=== PATIENT | male | born 1935 | race Caucasian/White ===

== ENCOUNTER 2018-02-08 11:25 | Outpatient (RCR) | payer SELFPAY ==
--- NOTE | 2018-01-16 09:00 | PR3E_ITS ---
82 year old male, graduate of pulmonary rehab phase 2 in 2017 and joined Phase 3 for a short period and has now decided to return. He was referred by his primary providers at [facility]. 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 Program structure reviewed and consents were obtained. Physical Assessment: Alert and oriented male, steady gait. Height 68in, weight 193 lbs, BMI 29.3. Lungs clear to air bilaterally, wearing 2L oxygen via NC, color WNL for patient, no edema reported, heart sounds distant and regular. Resting Vital signs: BP 110/52, HR 69, Oxygen saturation 91% on 2L. Exercise: No adverse signs or symptoms reported or observed w/ exercise. Tolerated the Treadmill (7 minutes), UBE (13 minutes), and stationary bike (5 minutes). HR w/ exercise 60's, BP w/ exercise 105/53 & 107/59, Oxygen saturations 84-90% and titrated from 2-4L, pt reports baseline with activity is low 80's and at rest low 90's, garrett scale ratings appropriate at 12-14. Will continue to monitor and progress patient as tolerated.
== END 2018-02-09 23:59 | disposition home or self-care (01) ==
LOC: CR 11:25
PROVIDERS: PCP Student in an Organized Health Care Education/Training Program; Visit Provider Family Medicine
DX: Z51.89 Encounter for other specified aftercare (principal)

== ENCOUNTER 2018-03-08 09:00 | Outpatient (RCR) | payer SELFPAY | END 2018-03-11 23:59 | disposition home or self-care (01) | LOC: CR 09:00 | PROVIDERS: PCP Student in an Organized Health Care Education/Training Program; Visit Provider Family Medicine | DX: Z51.89 Encounter for other specified aftercare (principal) ==

== ENCOUNTER 2018-04-05 09:00 | Outpatient (RCR) | payer SELFPAY | END 2018-04-11 23:59 | disposition home or self-care (01) | LOC: CR 09:00 | PROVIDERS: PCP Student in an Organized Health Care Education/Training Program; Visit Provider Family Medicine | DX: Z51.89 Encounter for other specified aftercare (principal) ==

== ENCOUNTER 2018-04-11 07:15 | Outpatient (CLI) | payer MEDICARE, OTHER, SELFPAY ==
[2018-04-11 07:53] LABS: HCT 48.3 % (40.0-50.0); HGB 15.8 g/dL (13.5-17.5); Mean Corp. HGB Concentration 32.7 g/dL (32.0-36.0); Mean Corpuscular Hemoglobin 31.1 pg (27.0-33.0); Mean Corpuscular Volume 95.1 fL (80-95); Mean Platelet Volume 10.8 fL (8.0-11.0); Platelet Count 131 x1000/uL (130-400); RBC 5.08 m/cumm (4.50-6.00); RBC Distribution Width 15.4 % (11.8-14.1); White Blood Cell Count 7.55 k/cumm (4.4-10.8)
[2018-04-11 10:10] LABS: ALT 19 U/L (12-78); AST 16 U/L (15-37); Albumin 3.6 g/dL (3.4-5.0); Alkaline Phosphatase 85 U/L (46-116); Anion Gap 13.2 mmol/L (3-11); BUN 19 mg/dL (7-18); Bilirubin, Total 0.7 mg/dL (0.2-1.0); CO2 23.8 mmol/L (21.0-32.0); CREATININE 1.07 mg/dL (0.70-1.30); Calcium 9.1 mg/dL (8.5-10.1); Chloride 106 mmol/L (98-107); Cholesterol 131 mg/dL (50-200); Glucose 99 mg/dL (70-100); HDL Cholesterol 36 mg/dL (40-60); LDL CHOLESTEROL 77 mg/dL (<100); Sodium 143 mmol/L (136-145); Total Protein 7.1 g/dL (6.4-8.2); Triglyceride 118 mg/dL (30-150)
== END 2018-04-11 07:35 ==
PROVIDERS: PCP Student in an Organized Health Care Education/Training Program; Visit Provider Student in an Organized Health Care Education/Training Program
DX: K76.0 Fatty (change of) liver, not elsewhere classified (principal); N28.9 Disorder of kidney and ureter, unspecified; D64.9 Anemia, unspecified; I10 Essential (primary) hypertension; E78.5 Hyperlipidemia, unspecified
CPT/HCPCS: 36415; 80053; 80061; 83721; 85027; 84443

== ENCOUNTER 2018-04-19 09:00 | Outpatient (RCR) | payer SELFPAY | END 2018-05-11 23:59 | disposition home or self-care (01) | LOC: CR 09:00 | PROVIDERS: PCP Student in an Organized Health Care Education/Training Program; Visit Provider Family Medicine | DX: Z51.89 Encounter for other specified aftercare (principal) ==

== ENCOUNTER 2018-05-02 00:49 | Outpatient (CLI) | payer MEDICARE, OTHER, SELFPAY ==
--- NOTE | 2018-05-02 14:40 | DI.CT_ITS ---
SYMPTOMS/DIAGNOSIS: ILD, J84.[address]: CT examination of the chest was performed utilizing high resolution protocol with inspiratory and expiratory imaging as well as helical scanning. Images obtained through the upper abdomen show gas in the intra and extrahepatic biliary tract consistent with prior instrumentation. The liver, spleen and pancreas are grossly unremarkable as are adrenals and visualized portions of the kidneys. There are multiple prominent mediastinal lymph nodes, the largest a pretracheal lymph node measuring about 30 x 12 mm in diameter. No axillary or supraclavicular adenopathy seen. The cardiac size appears within normal limits. There is a transvenous cardiac pacemaker in position. There are severe pulmonary emphysematous changes with very prominent central lobular and subpleural emphysema most prominent in the lung apices. There is predominantly bibasilar fibrosis and some honeycombing is present in the lung bases. No pulmonary mass or consolidation seen. There is a left basilar lower lobe intrapulmonary nodule measuring 8 mm in greatest diameter. This appears unchanged in comparison with previous abdominal CT of 08/22/17. Expiratory imaging shows no significant focal air trapping. CONCLUSION: Findings consistent with severe central lobular and subpleural emphysema, predominantly basilar reticular and honeycombing radiodensities consistent with pulmonary fibrosis. Left lower lobe 8 mm intrapulmonary nodule noted, follow up chest CT recommended in 12 months per low dose screening protocol.
== END 2018-05-02 01:09 ==
PROVIDERS: PCP Student in an Organized Health Care Education/Training Program; Visit Provider Internal Medicine Pulmonary Disease
DX: J84.9 Interstitial pulmonary disease, unspecified (principal); R91.1 Solitary pulmonary nodule; J43.9 Emphysema, unspecified; J84.10 Pulmonary fibrosis, unspecified
CPT/HCPCS: 71250

== ENCOUNTER 2018-05-28 07:44 | Emergency (ER) | payer MEDICARE, OTHER, SELFPAY ==
[2018-05-28] VITALS (54 sets, daily range): BP systolic 90–118; BP diastolic 50–76; PULSE 64–120; RESP 4–33; TEMP 36.6; O2SAT 74–94
--- NOTE | 2018-05-28 07:56 | ED.GENADUL_ITS ---
Discharge Plan Disposition Patient Disposition: HOME Condition: Stable Discharge Details Chief Complaint: SOB Clinical Impression: Hypoxia, Shortness of breath Primary Care Provider: Rianna Padron ED Provider: Ilda Gomes Home Meds and New Rx's Prescriptions: Continued rosuvastatin [Crestor] 20 mg tablet 20 mg PO DAILY Qty: 90 RF: 3 clopidogrel [Plavix] 75 mg tablet 75 mg PO DAILY Qty: 90 RF: 3 allopurinol 300 mg tablet 150 mg PO DAILY Qty: 45 RF: 0 carvedilol [Coreg] 12.5 mg tablet 12.5 mg PO BID Qty: 180 RF: 3 losartan 50 mg tablet 50 mg PO DAILY Qty: 90 RF: 3 fluticasone [Allergy Relief (fluticasone)] 50 mcg/actuation spray,suspension 2 spray JERRY DAILY Qty: 19.8 RF: 0 Space Chamber Plus 1 EACH spacer 1 ea Miscellaneous PRN Qty: 1 RF: 0 Comp-Air Elite Comp Neb System 1 EACH device 1 ea Miscellaneous Q6H PRN Qty: 1 RF: 0 potassium chloride [Klor-Con M20] 20 MEQ tablet,ER particles/crystals 20 meq PO DAILY Qty: 90 RF: 3 ursodiol 250 MG tablet 250 mg PO BID Qty: 180 RF: 3 aspirin 81 MG tablet,delayed release (DR/EC) 81 mg PO DAILY RF: 0 omega-3 fatty acids-fish oil 1 EACH capsule 1 ea PO BID RF: 0 Oxygen EACH NS continuous Qty: 2 RF: 99 sildenafil [Viagra] 50 MG tablet 50 mg PO DAILY Qty: 10 RF: 0 vit E-wheat germ-aloe vera 120 GM ointment 120 gm Topical BID Qty: 1 RF: 0 furosemide 40 MG tablet 40 mg PO Q48H Qty: 45 RF: 3 diltiazem HCl 180 MG capsule,extended release 24hr 180 mg PO DAILY Qty: 90 RF: 3 acetaminophen [Tylenol] 325 MG tablet 650 mg PO PRN PRNRF: 0 No Action fluticasone 220 mcg/actuation HFA aerosol inhaler 1 puff IH Q12H Qty: 12 RF: 0 morphine 10 mg/5 mL solution 10 mg PO Q6H MDD 2.5 mg PRN (Reason: sob) Qty: 15 RF: 0 prednisone 10 mg tablet 20 mg PO DAILY MDD 40mg Qty: 100 RF: 3 Discharge Instructions Instructions: Dyspnea (ED) Additional Instructions: Please return immediately to the emergency department if you develop any new or worsening symptoms or if you become otherwise concerned. You are offered admission today for shortness of breath declined admission, you may return to the emergency department at any time if you change your mind. It is extremely important that you call your licensed practical vocational nurse today to schedule an appointment to be seen within the next 2-3 days in follow-up. It is also extremely important that you call your primary care doctor to schedule an appointment to be seen within the next 1-2 weeks in follow-up this visit. Referrals: Rianna Padron, [Primary Care Provider] - Discharge Data Discharge Date/Time-TO BE ENTERED AT DEPARTURE: 05/28/18 14:21 Medical Decision Making Kayla Edmond is an 83-year-old man with history of hypertension, hyperlipidem ia, COPD/interstitial lung disease, coronary artery disease, AAA presenting to the emergency department with increased cough and shortness of breath over the past few days. On exam patient is conversing normally and speaking in full sentences, appears nontoxic. Mild shortness of breath. Decreased lung sounds throughout. Patient hypoxic on 3 L nasal cannula to high 80s at rest. Patient placed on nonrebreather with O2 sats into the mid 90s. Patient requests return to nasal cannula, does not like wearing nonrebreather and does not feel improved with it on. Concern for worsening chronic interstitial lung disease, reactive airway disease, pneumonia, PE, other. Doubt CHF, ACS. Exam/history not consistent with acute aortic pathology, sepsis. Plan for EKG, chest x-ray, screening labs, DuoNeb, continue nasal cannula oxygen, telemetry. Will monitor and reassess. CXR shows possible PNA, d-dimer elevated. Plan for CT chest. CT chest shows no acute process. Pt reporting essentially no change after duoneb. He reports that he feels at baseline while at rest. Ambulatory POX shows sats low 80s while walking. Pt ambulates without trouble. Discussed Pt presentation, results with Dr. Hurst of pulmonology at [facility], who recommended no emergent intervention at this time, will see Pt in f/u. I had a lengthy discussion with Pt offering him admission for hypoxia/dyspnea. Pt reports that he does not feel much worse than usual, and feels that his lung condition is declining gradually. He would like to go home today and f/u as outpt. I had a lengthy discussion with the Pt re: RTED precautions and importance of outpt f/u with PCP and pulmonology. Pt verbalizes understanding of the plan. Medical Records Medical records reviewed: Yes I reviewed the patient's medical records. Imaging Data Radiologic Study: Attestation: I personally reviewed and interpreted this imaging study as follows: Radiologist's impression: CHEST X-RAY: Portable AP view. Comparison 08/24/17 There is poor inspiration with crowding of pulmonary vasculature. Heart size and pulmonary vasculature are stable and within normal limits. Sternal wires are in place. The pacing wires are stable, in position. There are chronic interstitial fibrotic changes in the lungs. There does appear to be underlying COPD. Increased lung markings are seen in the bases particularly in the left base. These findings raise the question of a superimposed pneumonia. IMPRESSION: Increased lung markings in the bases particularly the left base, superimposed pneumonia or atelectasis should be considered. CT SCAN CHEST: CT scan of the chest was performed according to the pulmonary embolus protocol. There is atherosclerosis of the thoracic aorta but no aneurysm or dissection. Heart size is within normal limits. No significant pericardial effusion seen. No significant thoracic adenopathy, ascites or pneumoperitoneum is present. The pulmonary arteries show no evidence of a pulmonary embolus. There are findings of moderate COPD with pulmonary fibrosis. Dependent atelectatic changes are seen in the lungs. No focal consolidating infiltrates are seen. The tracheobronchial tree is unremarkable. Degenerative changes are seen in the spine. No acute abnormalities are seen in the upper abdomen. IMPRESSION: No definite acute pulmonary process. 2. No evidence of a pulmonary embolus, thoracic aortic dissection or aneurysm. Lab Data Lab results reviewed: Yes I reviewed the patient's lab results. 05/28/18 08:30 Nasopharynx Influenza Types A,B Antigen - Final Laboratory Tests Range/Units 05/28/18 05/28/18 05/28/18 08:26 08:26 08:26 WBC (4.4-10.8) k/cumm 6.48 RBC (4.50-6.00) m/cumm 4.97 Hgb (13.5-17.5) g/dL 15.2 Hct (40.0-50.0) % 45.5 MCV (80-95) fL 91.5 MCH (27.0-33.0) pg 30.6 MCHC (32.0-36.0) g/dL 33.4 RDW (11.8-14.1) % 15.9 H Plt Count (130-400) x1000/uL 90 L MPV (8.0-11.0) fL 11.6 H Immature Gran % 0.5 Neutrophils % 70.4 Lymphocytes % 18.8 Monocytes % 6.8 Eosinophils % 3.2 Basophils % 0.3 Absolute Neutrophils (1.2-6.7) k/cumm 4.56 Absolute Lymphocytes (1.2-3.4) k/cumm 1.22 Absolute Monocytes (0.11-0.7) k/cumm 0.44 Absolute Eosinophils (0.0-0.7) k/cumm 0.21 Absolute Basophils (0.0-0.2) k/cumm 0.02 RBC Morphology See below Polychromasia Present Anisocytosis 1+ D-Dimer (<500) ng/mlFEU Sodium (136-145) mmol/L 136 Potassium (3.5-5.1) mmol/L 4.1 Chloride (98-107) mmol/L 100 Carbon Dioxide (21.0-32.0) mmol/L 25.2 Anion Gap (3-11) mmol/L 10.8 BUN (7-18) mg/dL 17 Creatinine (0.70-1.30) mg/dL 1.19 Estimated GFR/1.73 m2 (mL/min/1.73m2) 58.67 Glucose (70-100) mg/dL 155 H Calcium (8.5-10.1) mg/dL 8.5 Total Bilirubin (0.2-1.0) mg/dL 0.9 AST (15-37) U/L 21 ALT (12-78) U/L 29 Alkaline Phosphatase (46-116) U/L 73 Troponin I (0.00-0.06) ng/mL 0.02 NT-Pro-B Natriuret Pep ( - 299) pg/mL 2398 H Total Protein (6.4-8.2) g/dL 6.7 Albumin (3.4-5.0) g/dL 2.4 L Urine Color (Yellow) Urine Clarity Urine pH (5-8) Ur Specific [place] (1.005-1.025) Urine Protein (Negative) mg/dL Urine Ketones (Negative) mg/dL Urine Blood (Negative) Urine Nitrite (Negative) Urine Bilirubin (Negative) Urine Urobilinogen (Up TO 0.2) EU/dL Ur Leukocyte Esterase (Negative) Urine Glucose (Negative) mg/dL Range/Units 05/28/18 05/28/18 08:26 11:30 WBC (4.4-10.8) k/cumm RBC (4.50-6.00) m/cumm Hgb (13.5-17.5) g/dL Hct (40.0-50.0) % MCV (80-95) fL MCH (27.0-33.0) pg MCHC (32.0-36.0) g/dL RDW (11.8-14.1) % Plt Count (130-400) x1000/uL MPV (8.0-11.0) fL Immature Gran % Neutrophils % Lymphocytes % Monocytes % Eosinophils % Basophils % Absolute Neutrophils (1.2-6.7) k/cumm Absolute Lymphocytes (1.2-3.4) k/cumm Absolute Monocytes (0.11-0.7) k/cumm Absolute Eosinophils (0.0-0.7) k/cumm Absolute Basophils (0.0-0.2) k/cumm RBC Morphology Polychromasia Anisocytosis D-Dimer (<500) ng/mlFEU 2047 H Sodium (136-145) mmol/L Potassium (3.5-5.1) mmol/L Chloride (98-107) mmol/L Carbon Dioxide (21.0-32.0) mmol/L Anion Gap (3-11) mmol/L BUN (7-18) mg/dL Creatinine (0.70-1.30) mg/dL Estimated GFR/1.73 m2 (mL/min/1.73m2) Glucose (70-100) mg/dL Calcium (8.5-10.1) mg/dL Total Bilirubin (0.2-1.0) mg/dL AST (15-37) U/L ALT (12-78) U/L Alkaline Phosphatase (46-116) U/L Troponin I (0.00-0.06) ng/mL NT-Pro-B Natriuret Pep ( - 299) pg/mL Total Protein (6.4-8.2) g/dL Albumin (3.4-5.0) g/dL Urine Color (Yellow) Yellow Urine Clarity Clear Urine pH (5-8) 7.0 Ur Specific [place] (1.005-1.025) 1.010 Urine Protein (Negative) mg/dL Negative Urine Ketones (Negative) mg/dL Negative Urine Blood (Negative) Negative Urine Nitrite (Negative) Negative Urine Bilirubin (Negative) Negative Urine Urobilinogen (Up TO 0.2) EU/dL 0.2 Ur Leukocyte Esterase (Negative) Negative Urine Glucose (Negative) mg/dL Negative ECG Data Attestation: I personally reviewed and interpreted this ECG (s) as follows: Interpretation: EKG shows normal sinus rhythm at 89 with normal axis, no STEMI, nondiagnostic EKG HPI General Mode of arrival: ambulatory . Date/Time Provider Initiated Documentation: 05/28/18 07:54 . Limitations to Documentation: no limitations . Information obtained by: patient, RN notes reviewed and old records reviewed . HPI Narrative: Kayla Edmond is an 83-year-old man with history of COPD, coronary artery disease, AAA, hypertension, hyperlipidemia presenting to the emergency room with shortness of breath and cough. Patient had accidental opiate overdose in 2001 resulting in respiratory arrest with aspiration event. He apparently suffered significant lung damage from that event, and has essentially been on home O2 at 3 L since that time. Patient reports that he has had PFTs in the past that showed no improvement with inhalational COPD medications. Patient reports that yesterday was day 6 of 10 of Augmentin prescribed by his licensed practical vocational nurse for sinusitis, however patient stopped taking the medication yesterday as he was feeling nauseated at a pharmacist recommended he discontinue it. Patient also reports that 1 week ago he finished a steroid taper course for shortness of breath. Patient reports that he has had worsening shortness of breath over the past 3 days with increased coughing. He also notes that he has had intermittent nausea over the past 3 days and some lightheadedness. He has had no vomiting or fainting. No fevers, no pain, no diarrhea, no leg swelling, no orthopnea. Has been eating and drinking as usual. Patient reports that his typical O2 sats are in the high 70s during activity with oxygen on, and in the high 80s with oxygen on at rest. Related Data Home Medications Medication Instructions Recorded Confirmed Space Chamber Plus #1 01/27/15 06/13/18 Comp-Air Elite Comp Neb System #1 ea 06/09/15 06/13/18 potassium chloride [Klor-Con M20] 20 meq PO DAILY #90 tab-cap 05/18/17 06/13/18 ursodiol 250 mg PO BID #180 tab 05/18/17 06/13/18 aspirin 81 mg PO DAILY tab-cap 05/31/17 06/13/18 acetaminophen [Tylenol] 650 mg PO PRN PRN 08/30/17 06/13/18 Oxygen l NS continuous #2 12/07/17 06/13/18 omega-3 fatty acids-fish oil 1 ea PO BID 12/07/17 06/13/18 sildenafil [Viagra] 50 mg PO DAILY #10 tab-cap 12/29/17 06/13/18 vit E-wheat germ-aloe vera 120 gm TOPICAL BID #1 tub 12/29/17 06/13/18 diltiazem HCl 180 mg PO DAILY #90 tab-cap 01/15/18 06/13/18 furosemide 40 mg PO Q48H #45 tab 01/15/18 06/13/18 allopurinol 300 mg tablet 150 mg PO DAILY #45 tab-cap 03/23/18 06/13/18 carvedilol 12.5 mg tablet 12.5 mg PO BID #180 tab-cap 03/23/18 06/13/18 clopidogrel 75 mg tablet 75 mg PO DAILY #90 tab-cap 03/23/18 06/13/18 fluticasone 50 mcg/actuation nasal 2 spray JERRY DAILY #19.8 gm 03/23/18 06/13/18 spray,suspension losartan 50 mg tablet 50 mg PO DAILY #90 tab-cap 03/23/18 06/13/18 rosuvastatin 20 mg tablet 20 mg PO DAILY #90 tab-cap 03/23/18 06/13/18 fluticasone 220 mcg/actuation HFA 1 puff IH Q12H #12 gm 05/30/18 06/13/18 aerosol inhaler morphine 10 mg/5 mL oral solution 10 mg PO Q6H PRN #15 ml MDD 2.5 mg 06/04/18 06/13/18 prednisone 10 mg tablet 20 mg PO DAILY #100 tab MDD 40mg 06/04/18 06/13/18 Previous Rx's Medication Instructions Recorded potassium chloride [Klor-Con M20] 20 meq PO DAILY #90 tab-cap 05/18/17 ursodiol 250 mg PO BID #180 tab 05/18/17 sildenafil [Viagra] 50 mg PO DAILY #10 tab-cap 12/29/17 vit E-wheat germ-aloe vera 120 gm TOPICAL BID #1 tub 12/29/17 diltiazem HCl 180 mg PO DAILY #90 tab-cap 01/15/18 furosemide 40 mg PO Q48H #45 tab 01/15/18 allopurinol 300 mg tablet 150 mg PO DAILY #45 tab-cap 03/23/18 carvedilol 12.5 mg tablet 12.5 mg PO BID #180 tab-cap 03/23/18 clopidogrel 75 mg tablet 75 mg PO DAILY #90 tab-cap 03/23/18 fluticasone 50 mcg/actuation nasal 2 spray JERRY DAILY #19.8 gm 03/23/18 spray,suspension losartan 50 mg tablet 50 mg PO DAILY #90 tab-cap 03/23/18 rosuvastatin 20 mg tablet 20 mg PO DAILY #90 tab-cap 03/23/18 fluticasone 220 mcg/actuation HFA 1 puff IH Q12H #12 gm 05/30/18 aerosol inhaler morphine 10 mg/5 mL oral solution 10 mg PO Q6H PRN #15 ml MDD 2.5 mg 06/04/18 prednisone 10 mg tablet 20 mg PO DAILY #100 tab MDD 40mg 06/04/18 Allergies Allergy/AdvReac Type Severity Reaction Status Date / Time adhesive tape Allergy Intermediate Verified 06/13/18 10:58 clarithromycin Allergy Unknown Verified 06/13/18 10:58 fentanyl Allergy Unknown Verified 06/13/18 10:58 morphine Allergy Unknown Verified 06/13/18 10:58 warfarin Allergy Unknown Verified 06/13/18 10:58 amoxicillin [From Augmentin] AdvReac Intermediate stomach Verified 06/13/18 10:58 issues clavulanic acid AdvReac Intermediate stomach Verified 06/13/18 10:58 [From Augmentin] issues gabapentin AdvReac Intermediate HEADACHE Verified 06/13/18 10:58 Review of Systems Review of Systems Constitutional: denies fevers Eyes: denies eye pain ENT: denies facial pain, dental pain, sore throat Cardiovascular: denies chest pain, edema Respiratory: reports SOB, cough GI: denies abdominal pain, vomiting, diarrhea : denies flank pain MSK: denies back pain, neck pain, arthralgias, myalgias Skin: denies rash Neuro: denies headaches, lightheadedness, weakness PFSH Medical History CAD (coronary artery disease) COPD (chronic obstructive pulmonary disease) Essential hypertension High cholesterol ILD (interstitial lung disease) Surgical History Carotid endarterectomy Cholecystectomy (10/24/17) Cholecystectomy (11/13/17) Coronary Artery Bypass Gaft (CABG) (06/12/95) Pacemaker (12/20/11) Social History caregiver/support person: Yes ( Ilsa) household members: spouse current occupational status: retired Smoking/Tobacco Use Status: Never alcohol intake: current alcohol intake frequency: a few times a month Exam Narrative Exam Narrative: Constitutional: [id number], pleasant, conversing normally, mild tachypnea HENT: head atraumatic, normocephalic normal inspection, mucous membranes moist Eyes: conjunctiva normal, sclera normal, pupils 3mm b/l Neck: no stridor, normal ROM, trachea midline Chest: normal inspection Resp: somewhat increased WOB, decreased breath sounds throughout, slight wheeze b/l upper lobes, no rhonchi or rales Cardio: normal rate, normal rhythm, no murmur appreciated GI: abdomen soft, non-tender, non-distended Back: normal inspection, no rash Skin: warm, dry, normal color, no rash Neuro: alert, not altered, grossly non-focal, normal tone Ext: no edema, no posterior calf TTP Psych: normal mood, normal affect, normal behavior
--- NOTE | 2018-05-28 08:08 | DI.RAD_ITS ---
SYMPTOM/DIAGNOSIS: SOB, COUGH CHEST X-RAY: Portable AP view. Comparison 08/24/17 There is poor inspiration with crowding of pulmonary vasculature. Heart size and pulmonary vasculature are stable and within normal limits. Sternal wires are in place. The pacing wires are stable, in position. There are chronic interstitial fibrotic changes in the lungs. There does appear to be underlying COPD. Increased lung markings are seen in the bases particularly in the left base. These findings raise the question of a superimposed pneumonia. IMPRESSION: Increased lung markings in the bases particularly the left base, superimposed pneumonia or atelectasis should be considered.
[2018-05-28] MEDS: Albuterol/Ipratropium 3 ML UPD VIAL UPD (08:30)
[2018-05-28 08:40] LABS: Abs Immature Grans 0.03 k/cumm (0.0-0.09); Absolute Basophil Count 0.02 k/cumm (0.0-0.2); Absolute Eosinophil Count 0.21 k/cumm (0.0-0.7); Absolute Lymphocyte Count 1.22 k/cumm (1.2-3.4); Absolute Monocyte Count 0.44 k/cumm (0.11-0.7); Absolute Neutrophil Count 4.56 k/cumm (1.2-6.7); Basophils % 0.3; Eosinophils % 3.2; HCT 45.5 % (40.0-50.0); HGB 15.2 g/dL (13.5-17.5); Immature Grans % 0.5; Lymphocytes % 18.8; Mean Corp. HGB Concentration 33.4 g/dL (32.0-36.0); Mean Corpuscular Hemoglobin 30.6 pg (27.0-33.0); Mean Corpuscular Volume 91.5 fL (80-95); Mean Platelet Volume 11.6 fL (8.0-11.0); Monocytes % 6.8; Neutrophils % 70.4; RBC 4.97 m/cumm (4.50-6.00); RBC Distribution Width 15.9 % (11.8-14.1); White Blood Cell Count 6.48 k/cumm (4.4-10.8)
[2018-05-28 08:56] LABS: ALT 29 U/L (12-78); AST 21 U/L (15-37); Albumin 2.4 g/dL (3.4-5.0); Alkaline Phosphatase 73 U/L (46-116); Anion Gap 10.8 mmol/L (3-11); BUN 17 mg/dL (7-18); Bilirubin, Total 0.9 mg/dL (0.2-1.0); CO2 25.2 mmol/L (21.0-32.0); CREATININE 1.19 mg/dL (0.70-1.30); Calcium 8.5 mg/dL (8.5-10.1); Chloride 100 mmol/L (98-107); Estimated GFR 58.67 (mL/min/1.73m2); Glucose 155 mg/dL (70-100); Potassium 4.1 mmol/L (3.5-5.1); Sodium 136 mmol/L (136-145); Total Protein 6.7 g/dL (6.4-8.2); Troponin I 0.02 ng/mL (0.00-0.06)
[2018-05-28 09:00] LABS: Anisocytosis 1+; Platelet Count 90 x1000/uL (130-400); Polychromasia Present
[2018-05-28 09:03] LABS: NT-proBNP 2398 pg/mL
[2018-05-28 09:11] LABS: D-Dimer 2047 ng/mlFEU (<500)
--- NOTE | 2018-05-28 09:36 | DI.CT_ITS ---
SYMPTOM/DIAGNOSIS: SOB, COUGH CT SCAN CHEST: CT scan of the chest was performed according to the pulmonary embolus protocol. There is atherosclerosis of the thoracic aorta but no aneurysm or dissection. Heart size is within normal limits. No significant pericardial effusion seen. No significant thoracic adenopathy, ascites or pneumoperitoneum is present. The pulmonary arteries show no evidence of a pulmonary embolus. There are findings of moderate COPD with pulmonary fibrosis. Dependent atelectatic changes are seen in the lungs. No focal consolidating infiltrates are seen. The tracheobronchial tree is unremarkable. Degenerative changes are seen in the spine. No acute abnormalities are seen in the upper abdomen. IMPRESSION: No definite acute pulmonary process. 2. No evidence of a pulmonary embolus, thoracic aortic dissection or aneurysm. The findings were discussed with the Emergency Department on the date of the examination.
[2018-05-28] MEDS: Omnipaque 350 MG/ML 100 ML BTL IJ (10:52)
[2018-05-28 11:36] LABS: Bilirubin Negative (Negative); Blood Negative (Negative); Clarity Clear; Glucose Negative (Negative); Ketones Negative (Negative); Leukocyte Esterase Negative (Negative); Nitrite Negative (Negative); Urobilinogen 0.2 EU/dL (Up TO 0.2)
== END 2018-05-28 14:21 | disposition home or self-care (01) ==
PROVIDERS: Emergency Provider Student in an Organized Health Care Education/Training Program; PCP Student in an Organized Health Care Education/Training Program
DX: R09.02 Hypoxemia (principal); R06.02 Shortness of breath; J44.9 Chronic obstructive pulmonary disease, unspecified; I10 Essential (primary) hypertension
CPT/HCPCS: 36415; 71275; 80053; 87449; 93005; 94640; 99285; 71045; 81003; 83880; 84484; 85025; 85379; 93010; J3490; J7620

== ENCOUNTER 2018-07-25 10:24 | Outpatient (RCR) | payer MEDICARE, OTHER, SELFPAY | END 2018-08-09 23:59 | disposition home or self-care (01) | LOC: CR 10:24 | PROVIDERS: PCP Student in an Organized Health Care Education/Training Program; Visit Provider Family Medicine | DX: Z51.89 Encounter for other specified aftercare (principal) ==

== ENCOUNTER 2018-09-03 11:05 | Outpatient (REF) | payer MEDICARE, OTHER, SELFPAY | END 2018-09-03 11:25 | LOC: LBN 11:05 | PROVIDERS: PCP Student in an Organized Health Care Education/Training Program; Visit Provider Student in an Organized Health Care Education/Training Program | DX: R05 Cough (principal); J18.9 Pneumonia, unspecified organism | CPT/HCPCS: 87070; 87205 ==

== ENCOUNTER 2018-10-09 00:56 | Outpatient (CLI) | payer MEDICARE, OTHER, SELFPAY ==
--- NOTE | 2018-10-09 08:51 | DI.RAD_ITS ---
SYMPTOM/DIAGNOSIS: FOOT PAIN ACROSS TRANSVERSE ARCH, H/O GOUT OF TOES, M79.672 LEFT FOOT: Four views. Comparison is made with 10/31/14. The bones are intact and normally mineralized. The joint spaces are well maintained. No erosions, periarticular osteopenia or significant hypertrophic changes are present. There are small spurs seen at the posterior calcaneus. The soft tissues are unremarkable. IMPRESSION: Small calcaneal spurs. Otherwise unremarkable examination. RIGHT FOOT: Three views. At the first metatarsal phalangeal joint, there is mild joint space narrowing and periarticular spurring. The joint spaces are otherwise well maintained. No erosions or periarticular osteopenia is identified. Small calcaneal spurs are seen. The bones are normally mineralized. The soft tissues are unremarkable. IMPRESSION: Mild osteoarthritis of the right foot.
== END 2018-10-09 01:16 ==
PROVIDERS: PCP Student in an Organized Health Care Education/Training Program; Visit Provider Student in an Organized Health Care Education/Training Program
DX: M79.672 Pain in left foot (principal); M79.671 Pain in right foot; M77.32 Calcaneal spur, left foot; M19.071 Primary osteoarthritis, right ankle and foot; Z87.39 Personal history of other diseases of the musculoskeletal system and connective tissue
CPT/HCPCS: 73630

== ENCOUNTER 2018-12-04 13:56 | Outpatient (CLI) | payer MEDICARE, OTHER, SELFPAY ==
[2018-12-04 14:12] VITALS: BP 137/80; PULSE 84; RESP 24; TEMP 36.5; O2SAT 89
[2018-12-04 14:57] VITALS: BP 144/74; PULSE 79; RESP 24; O2SAT 85
--- NOTE | 2018-12-04 14:59 | PDOC.PAIN ---
Pain Clinic Procedure Note Current Active Problems Problem Status Onset Radiculopathy of lumbosacral region Acute 01/28/16 LUMBAR / SACRAL TRANSFORAMINAL INJECTION JULIO CÉSAR HODGES has been [facility] for a transforaminal nerve root block and steroid injection. COMMENTS: He had his first left S1 TFESI on 09/14/18 and did excellent with this procedure. Patient was interviewed and the medical record reviewed. There were no medical, pharmacologic, radiographic or other structural contraindications to attempting fluoroscopically guided transforaminal nerve root block and epidural steroid injection. Risks and expected side effects as well as potential benefit of the procedure were reviewed and voiced concerns addressed. The printed consent form was signed and witnessed. Standard time-out procedure was performed. Patient was placed in the prone position on the fluoroscopy table and automated blood pressure cuff and pulse oximeter applied. Fluoroscopy was utilized to identify the left [id number] foramen. A skin opal was made for the needle insertion site. A Chlorhexadine prep was carried out, and sterile drapes were applied. Local anesthesia was achieved in the skin and subcutaneous tissues. A 22 gauge 3.5 curved tip spinal needle was then inserted, advanced with fluoroscopic guidance into the neural foramen, confirmed on the lateral view. After negative aspiration, 1 ml of Omnipaque 240 was injected confirming position in A/P and lateral views. This showed a good spread of dye transforaminally into the epidural space. There was no vascular update with contrast injection under continuous fluoroscopy. 15 mg of Dexamethasone was injected, followed by 0.5 ml of 1% Xylocaine flush for the nerve root block, as well. There was no unusual discomfort expressed.The needle was withdrawn. The patient tolerated the procedure well. A Band-Aid was applied. Vital signs were stable throughout the procedure and were as recorded in nursing records. If given, dosages of intravenous drugs for anxiolysis and analgesia were documented in nursing records. Follow up plans and appointments were discussed. Post procedure instruction was given as documented in nursing records and patient was discharged in the care of an identified logging truck driver. COMMENTS: This procedure can be completed up to 3 times per 12 months if it is found to be helpful. CC: Rianna Padron DO
--- NOTE | 2018-12-04 15:02 | DI.RAD_ITS ---
SYMPTOMS/DIAGNOSIS: LUMBAR RADICULOPATHY PAIN CLINIC LUMBAR SPINE: Fluoroscopy Time: 33.9 sec C-arm fluoroscopy is provided for guidance with a Pain Clinic injection. Please see procedure note for details.
[2018-12-04] MEDS: Omnipaque 240 MG/ML 50 ML BTL IJ (15:07)
[2018-12-04] MEDS: Dexamethasone Sod. Phos./Pres-Free 10 MG/ML VIAL IJ (15:07)
== END 2018-12-04 14:16 ==
PROVIDERS: PCP Student in an Organized Health Care Education/Training Program; Visit Provider Preventive Medicine Occupational Medicine
DX: M54.17 Radiculopathy, lumbosacral region (principal)
CPT/HCPCS: 64483; 72100; Q9967

== ENCOUNTER 2019-01-10 13:07 | Outpatient (CLI) | payer MEDICARE, OTHER, SELFPAY ==
[2019-01-10 13:19] VITALS: BP 110/63; PULSE 65; RESP 24; TEMP 36.5; O2SAT 92
--- NOTE | 2019-01-10 13:42 | PDOC.PAIN_ITS ---
Pain Clinic Procedure Note Current Active Problems Problem Status Onset Radiculopathy of lumbosacral region 01/28/16 LUMBAR / SACRAL TRANSFORAMINAL INJECTION JULIO CÉSAR HODGES has been [facility] for a transforaminal nerve root block and steroid injection. COMMENTS: Good relief with this procedure on 12/04/18 and 09/14/18. Patient was interviewed and the medical record reviewed. There were no medical, pharmacologic, radiographic or other structural contraindications to attempting fluoroscopically guided transforaminal nerve root block and epidural steroid injection. Risks and expected side effects as well as potential benefit of the procedure were reviewed and voiced concerns addressed. The printed consent form was signed and witnessed. Standard time-out procedure was performed. Patient was placed in the prone position on the fluoroscopy table and automated blood pressure cuff and pulse oximeter applied. Fluoroscopy was utilized to identify the left S1 neural foramen S1. A skin opal was made for the needle insertion site. A Chlorhexadine prep was carried out, and sterile drapes were applied. Local anesthesia was achieved in the skin and subcutaneous tissues. A 22 gauge curved tip 3.5 spinal needle was then inserted, advanced with fluoroscopic guidance into the neural foramen, confirmed on the lateral view. After negative aspiration, 2 ml of Omnipaque 240 was injected confirming position in A/P and lateral views. This showed a good spread of dye transforaminally into the epidural space. There was no vascular update with contrast injection under continuous fluoroscopy. 15 mg of Dexamethasone was injected, followed by 0.5 ml of 1% Xylocaine flush for the nerve root block, as well. There was no unusual discomfort expressed.The needle was withdrawn. The patient tolerated the procedure well. A Band-Aid was applied. Vital signs were stable throughout the procedure and were as recorded in nursing records. If given, dosages of intravenous drugs for anxiolysis and analgesia were documented in nursing records. Follow up plans and appointments were discussed. Post procedure instruction was given as documented in nursing records and patient was discharged in the care of an identified tilt tray driver. COMMENTS: He can have this procedure again no sooner than 09/14/2018. CC: Rianna Padron DO
--- NOTE | 2019-01-10 13:43 | DI.RAD_ITS ---
SYMPTOMS/DIAGNOSIS: LUMBAR RADICULOPATHY, LUMBAR EPIDURAL STEROID INJECTION PAIN CLINIC: Fluoroscopy Time: 20.1 sec Images submitted from the pain clinic demonstrate needle positioning over the left paramedian position at the level of the S 1 in conjunction with an epidural steroid injection. Please see Dr. Scanlon's procedure report for further information.
[2019-01-10] MEDS: Omnipaque 240 MG/ML 50 ML BTL IJ (13:44)
[2019-01-10] MEDS: Dexamethasone 10 MG/ML VIAL IM (13:45)
[2019-01-10 13:46] VITALS: BP 160/69; PULSE 74; RESP 14; O2SAT 89
== END 2019-01-10 13:27 ==
PROVIDERS: PCP Student in an Organized Health Care Education/Training Program; Visit Provider Preventive Medicine Occupational Medicine
DX: M54.17 Radiculopathy, lumbosacral region (principal)
CPT/HCPCS: 64483; 72100; J1100; Q9967

== ENCOUNTER 2019-03-13 01:18 | Outpatient (CLI) | payer MEDICARE, OTHER, SELFPAY ==
--- NOTE | 2019-03-13 08:17 | DI.US_ITS ---
EXAM: US HERNIA CLINICAL HISTORY: new, enlarged hernia with mass, K43.9. TECHNIQUE: Ultrasound performed using standard protocol. COMPARISON: US ABD LTD - ONE ORGAN/QUAD from 11/20/2018 FINDINGS: There does appear to be a defect in the anterior abdominal wall. There does appear to be protrusion of fat through the defect. The finding is suggestive of an anterior abdominal wall hernia. A CT sca n of the abdomen is recommended for further evaluation.
== END 2019-03-13 01:38 ==
PROVIDERS: PCP Student in an Organized Health Care Education/Training Program; Visit Provider Student in an Organized Health Care Education/Training Program
DX: K43.9 Ventral hernia without obstruction or gangrene (principal)
CPT/HCPCS: 76857

== ENCOUNTER 2019-04-02 01:20 | Outpatient (CLI) | payer MEDICARE, OTHER, SELFPAY ==
--- NOTE | 2019-04-02 08:23 | DI.CT_ITS ---
EXAM: CT ABDOMEN PELVIS W CLINICAL HISTORY: TECHNIQUE: Post IV and oral contrast COMPARISON: CT chest PE CTA from 05/28/2018 US HERNIA from 03/13/2019 FINDINGS: The lung bases show emphysematous and fibrotic changes as well as basilar honeycombing. A pacemaker lead is seen. In the anterior abdominal wall, beneath the xiphoid, there is a defect in the musculat ure and a small amount fat herniates through. There is also some fat extending into the upper left i nferior rectus muscle. The remainder of the abdominal wall appears intact. No inguinal hernias are seen. The patient is status post cholecystectomy. There is biliary dilatation to 15 millimeters. There is a small diverticulum in the descending duodenum. The common duct tapers in the head of the pancreas . The spleen, pancreas, adrenals and kidneys are unremarkable. There is a small hiatal hernia. The re is prominent sigmoid diverticulosis but no evidence of diverticulitis. The bladder and prostate a re unremarkable. The aorta shows severe atherosclerotic changes. There is no evidence of aneurysm h owever there is significant mural thrombus which narrows the luminal diameter. There is lack of blo od flow in the left iliac artery with reconstitution of the common femoral artery. There is also a s evere narrowing of the diameter of the right iliac artery and common femoral artery on the right. Th ere is no significant narrowing of the SMA. There is some narrowing proximally at the celiac axis an d proximal portions of both renal arteries. The kidneys appear normally perfused. Degenerative disc changes and facet degenerative changes are seen in the spine. IMPRESSION: Severe atherosclerotic changes of the abdominal aorta and branch vessels. 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 Small fatty containing upper abdominal wall hernia.
[2019-04-02 08:55] LABS: CREATININE 1.02 mg/dL (0.70-1.30)
[2019-04-02] MEDS: Omnipaque 350 MG/ML 100 ML BTL IJ (10:09)
[2019-04-02] MEDS: Omnipaque 350 MG/ML 50 ML BTL IJ (10:10)
== END 2019-04-02 01:40 ==
PROVIDERS: PCP Student in an Organized Health Care Education/Training Program; Visit Provider Student in an Organized Health Care Education/Training Program
DX: J98.4 Other disorders of lung (principal); Z95.0 Presence of cardiac pacemaker; K46.9 Unspecified abdominal hernia without obstruction or gangrene; K44.9 Diaphragmatic hernia without obstruction or gangrene; K57.30 Diverticulosis of large intestine without perforation or abscess without bleeding; I74.5 Embolism and thrombosis of iliac artery; I70.0 Atherosclerosis of aorta
CPT/HCPCS: 74177; 82565; J3490; Q9967

== ENCOUNTER 2019-10-28 17:56 | Inpatient (IN) | payer MEDICARE, OTHER, SELFPAY ==
[2019-10-28] VITALS (12 sets, daily range): BP systolic 122–129; BP diastolic 50–82; PULSE 82–99; RESP 16–30; TEMP 36.9–37.4; O2SAT 80–92
--- NOTE | 2019-10-28 18:00 | DI.RAD_ITS ---
EXAM: XR PORTABLE CHEST AP CLINICAL HISTORY: SOB TECHNIQUE: 2D digital imaging was performed. COMPARISON: CR XR PORTABLE CHEST AP from 05/28/2018 FINDINGS: MEDIASTINUM: Normal. HEART: Status post CABG. Pacemaker wires are in stable position. PULMONARY VASCULATURE: Normal. LUNGS: There are increased lung markings in the left base which may represent atelectasis or pneumoni a. There is a 5 mm rounded density in the mid right lung between the 6 and 7th ribs. PLEURAL SPACE: There may be a small left pleural effusion. No pneumothorax is present. BONE:Status post sternotomy. OTHER FINDINGS:Normal. IMPRESSION: 1. Suspect left lower lobe infiltrate and pleural effusion. 2. Small 5 mm right pulmonary nodule. Clinically warranted a CT scan of the chest may be obtained fo r further evaluation. DATA REPOSITORY: RADIATION DOSE DELIVERED:
[2019-10-28 18:10] LABS: BE (Venous) -0.2 mmol/L (-3-3); HCO3 (Venous) 24 mmol/L (22-28); O2 Sat (Venous) 88 % (70-80); TCO2 (Venous) 20 mmol/L (22-29); pCO2 (Venous) 35 mm/Hg (34-47); pH (Venous) 7.44 (7.35-7.45); pO2 (Venous) 53 mm/Hg (28-44)
[2019-10-28 18:20] LABS: Abs Immature Grans 0.04 k/cumm (0.0-0.09); Absolute Basophil Count 0.02 k/cumm (0.0-0.2); Absolute Eosinophil Count 0.02 k/cumm (0.0-0.7); Absolute Lymphocyte Count 2.45 k/cumm (1.2-3.4); Absolute Monocyte Count 1.71 k/cumm (0.11-0.7); Absolute Neutrophil Count 11.05 k/cumm (1.2-6.7); Basophils % 0.1; Eosinophils % 0.1; HCT 51.6 % (40.0-50.0); HGB 16.9 g/dL (13.5-17.5); Immature Grans % 0.3 %; Mean Corp. HGB Concentration 32.8 g/dL (32.0-36.0); Mean Corpuscular Hemoglobin 30.7 pg (27.0-33.0); Mean Corpuscular Volume 93.8 fL (80-95); Mean Platelet Volume 11.7 fL (8.0-11.0); Monocytes % 11.2; Neutrophils % 72.3; Platelet Count 144 x1000/uL (130-400); RBC Distribution Width 16.4 % (11.8-14.1); White Blood Cell Count 15.29 k/cumm (4.4-10.8)
[2019-10-28 18:39] LABS: Lactate 2.8 mmol/L (0.6-1.4)
--- NOTE | 2019-10-28 18:40 | DI.VRAD_ITS ---
PROCEDURE INFORMATION: Exam: Portable XR Chest, 1 View Exam date and time: 10/28/2019 6:29 PM Age: 84 years old Clinical indication: Shortness of breath TECHNIQUE: Imaging protocol: Portable XR of the chest Views: 1 view. COMPARISON: CR XR PORTABLE CHEST AP 05/28/2018 8:59 AM FINDINGS: Tubes, catheters and devices: There is a left-sided dual lead pacer with 1 lead in the right atrium and 1 in the right ventricle. Lungs: There is increased density retrocardiac on the left and a left lower lobe infiltrate is suspected. A small left pleural effusion is suspected as well. There is a small nodule in the right mid lung measuring approximately the 5 mm. This could be re-evaluated if clinically warranted with a CT scan of the chest. Pleural space: See above. Heart/Mediastinum: The patient is status post sternotomy and CABG. Vasculature: There are arteriosclerotic changes of the aorta. Bones/joints: Unremarkable. Other findings: The study is limited as the patient is rotated. IMPRESSION: Status post sternotomy and CABG. Suspect left lower lobe infiltrate and pleural effusion. Small right pulmonary nodule please see discussion above. Dictated and Authenticated by: Marcos Neff MD. Ordering:NAIMA Gonsales MD
[2019-10-28 18:47] LABS: ALT 30 U/L (16-63); AST 27 U/L (15-37); Albumin 3.3 g/dL (3.4-5.0); Alkaline Phosphatase 73 U/L (46-116); Anion Gap 10.3 mmol/L (3-11); BUN 18 mg/dL (7-18); Bilirubin, Total 0.8 mg/dL (0.2-1.0); CO2 24.7 mmol/L (21.0-32.0); CREATININE 1.21 mg/dL (0.70-1.30); Calcium 9.2 mg/dL (8.5-10.1); Chloride 102 mmol/L (98-107); Estimated GFR 57.41 (mL/min/1.73m2); Glucose 127 mg/dL (74-106); Potassium 4.4 mmol/L (3.5-5.1); Sodium 137 mmol/L (136-145); Total Protein 7.6 g/dL (6.4-8.2)
[2019-10-28 18:49] LABS: Troponin I < 0.05 ng/Ml (<0.06)
[2019-10-28 18:57] LABS: Prothrombin Time 10.3 sec (9.3-11.0)
[2019-10-28 19:03] LABS: D-Dimer 779 ng/mlFEU (<500)
[2019-10-28 19:07] LABS: NT-proBNP 4571 pg/mL (<300)
--- NOTE | 2019-10-28 19:10 | ED.GENADUL_ITS ---
Discharge Plan Discharge Details Chief Complaint: SOB Admit Date/Time: 10/28/19 20:33 Admit Provider: Adrian Crow Attending Provider: Adrian Crow Primary Care Provider: Rianna Padron ED Provider: Ilda Gomes Discharge Data Discharge Date/Time-TO BE ENTERED AT DEPARTURE: 10/28/19 21:40 Medical Decision Making Lola Edmond is an 84 y/o man with multiple medical problems including severe lung disease (baseline O2 sats 87-89% on 10L at home) who presented to the emergency department with SOB and cough over the past 2 weeks, also general malaise for last few days. On exam Pt appears chronically ill. Tachypneic mid 20s to 30, O2 sats 90-91% on 10L NC with mild exp wheeze throughout and LLL rales. Concern for COPD vs PNA vs COVID vs CHF vs worsening chronic lung disease vs less likely ACS, PE. Exam/hx not c/w sepsis, acute aortic pathology. Plan for EKG, CXR, screening labs, combivent (no nebs at this time 2/2 covid), will monitor and reassess. Anticipate admission. CXR shows LLL infiltrate. Labs reviewed, BNP elevated at >4000. d-dimer neg when age-adjusted. Likely PNA with some component of CHF. Plan for abx, Pt with multiple allergies to abx and is unclear re: severity when questioned. Plan for zosyn, levaquin for CAP at this time. Clinical Impression: PNA, chf Disposition: [facility] inpatient Medical Records Medical records reviewed: Yes I reviewed the patient's medical records. Imaging Data Radiologic Study: Attestation: I personally reviewed and interpreted this imaging study as follows: Radiologist's impression: Exam: Portable XR Chest, 1 View Exam date and time: 10/28/2019 6:29 PM Age: 84 years old Clinical indication: Shortness of breath TECHNIQUE: Imaging protocol: Portable XR of the chest Views: 1 view. COMPARISON: CR XR PORTABLE CHEST AP 05/28/2018 8:59 AM FINDINGS: Tubes, catheters and devices: There is a left-sided dual lead pacer with 1 lead in the right atrium and 1 in the right ventricle. Lungs: There is increased density retrocardiac on the left and a left lower lobe infiltrate is suspected. A small left pleural effusion is suspected as well. There is a small nodule in the right mid lung measuring approximately the 5 mm. This could be re-evaluated if clinically warranted with a CT scan of the chest. Pleural space: See above. Heart/Mediastinum: The patient is status post sternotomy and CABG. Vasculature: There are arteriosclerotic changes of the aorta. Bones/joints: Unremarkable. Other findings: The study is limited as the patient is rotated. IMPRESSION: Status post sternotomy and CABG. Suspect left lower lobe infiltrate and pleural effusion. Small right pulmonary nodule please see discussion above. Lab Data Lab results reviewed: Yes I reviewed the patient's lab results. Labs: 10/28/19 19:07 Blood Blood Culture - Pending 10/28/19 18:50 Blood Blood Culture - Pending Laboratory Tests Range/Units 10/28/19 10/28/19 10/28/19 17:05 17:30 17:30 WBC (4.4-10.8) k/cumm RBC (4.50-6.00) m/cumm Hgb (13.5-17.5) g/dL Hct (40.0-50.0) % MCV (80-95) fL MCH (27.0-33.0) pg MCHC (32.0-36.0) g/dL RDW (11.8-14.1) % Plt Count (130-400) x1000/uL MPV (8.0-11.0) fL Immature Gran % % Neutrophils % Lymphocytes % Monocytes % Eosinophils % Basophils % Absolute Neutrophils (1.2-6.7) k/cumm Absolute Lymphocytes (1.2-3.4) k/cumm Absolute Monocytes (0.11-0.7) k/cumm Absolute Eosinophils (0.0-0.7) k/cumm Absolute Basophils (0.0-0.2) k/cumm PT (9.3-11.0) sec 10.3 INR (0.9-1.1) 1.0 D-Dimer (<500) ng/mlFEU VBG pH (7.35-7.45) VBG pCO2 (34-47) mm/Hg VBG pO2 (28-44) mm/Hg VBG HCO3 (22-28) mmol/L VBG Total CO2 (22-29) mmol/L VBG O2 Saturation (70-80) % VBG Base Excess (-3-3) mmol/L Sodium (136-145) mmol/L Potassium (3.5-5.1) mmol/L Chloride (98-107) mmol/L Carbon Dioxide (21.0-32.0) mmol/L Anion Gap (3-11) mmol/L BUN (7-18) mg/dL Creatinine (0.70-1.30) mg/dL Estimated GFR/1.73 m2 (mL/min/1.73m2) Glucose (74-106) mg/dL Lactate (0.6-1.4) mmol/L Calcium (8.5-10.1) mg/dL Total Bilirubin (0.2-1.0) mg/dL AST (15-37) U/L ALT (16-63) U/L Alkaline Phosphatase (46-116) U/L Troponin I (<0.06) ng/Ml NT-Pro-B Natriuret Pep (<300) pg/mL 4571 H Total Protein (6.4-8.2) g/dL Albumin (3.4-5.0) g/dL Procalcitonin ng/mL < 0.1 Range/Units 10/28/19 10/28/19 10/28/19 17:50 17:50 17:50 WBC (4.4-10.8) k/cumm 15.29 H RBC (4.50-6.00) m/cumm 5.50 Hgb (13.5-17.5) g/dL 16.9 Hct (40.0-50.0) % 51.6 H MCV (80-95) fL 93.8 MCH (27.0-33.0) pg 30.7 MCHC (32.0-36.0) g/dL 32.8 RDW (11.8-14.1) % 16.4 H Plt Count (130-400) x1000/uL 144 MPV (8.0-11.0) fL 11.7 H Immature Gran % % 0.3 Neutrophils % 72.3 Lymphocytes % 16.0 Monocytes % 11.2 Eosinophils % 0.1 Basophils % 0.1 Absolute Neutrophils (1.2-6.7) k/cumm 11.05 H Absolute Lymphocytes (1.2-3.4) k/cumm 2.45 Absolute Monocytes (0.11-0.7) k/cumm 1.71 H Absolute Eosinophils (0.0-0.7) k/cumm 0.02 Absolute Basophils (0.0-0.2) k/cumm 0.02 PT (9.3-11.0) sec INR (0.9-1.1) D-Dimer (<500) ng/mlFEU 779 H VBG pH (7.35-7.45) VBG pCO2 (34-47) mm/Hg VBG pO2 (28-44) mm/Hg VBG HCO3 (22-28) mmol/L VBG Total CO2 (22-29) mmol/L VBG O2 Saturation (70-80) % VBG Base Excess (-3-3) mmol/L Sodium (136-145) mmol/L 137 Potassium (3.5-5.1) mmol/L 4.4 Chloride (98-107) mmol/L 102 Carbon Dioxide (21.0-32.0) mmol/L 24.7 Anion Gap (3-11) mmol/L 10.3 BUN (7-18) mg/dL 18 Creatinine (0.70-1.30) mg/dL 1.21 Estimated GFR/1.73 m2 (mL/min/1.73m2) 57.41 Glucose (74-106) mg/dL 127 H Lactate (0.6-1.4) mmol/L Calcium (8.5-10.1) mg/dL 9.2 Total Bilirubin (0.2-1.0) mg/dL 0.8 AST (15-37) U/L 27 ALT (16-63) U/L 30 Alkaline Phosphatase (46-116) U/L 73 Troponin I (<0.06) ng/Ml < 0.05 NT-Pro-B Natriuret Pep (<300) pg/mL Total Protein (6.4-8.2) g/dL 7.6 Albumin (3.4-5.0) g/dL 3.3 L Procalcitonin ng/mL Range/Units 10/28/19 10/28/19 17:50 17:50 WBC (4.4-10.8) k/cumm RBC (4.50-6.00) m/cumm Hgb (13.5-17.5) g/dL Hct (40.0-50.0) % MCV (80-95) fL MCH (27.0-33.0) pg MCHC (32.0-36.0) g/dL RDW (11.8-14.1) % Plt Count (130-400) x1000/uL MPV (8.0-11.0) fL Immature Gran % % Neutrophils % Lymphocytes % Monocytes % Eosinophils % Basophils % Absolute Neutrophils (1.2-6.7) k/cumm Absolute Lymphocytes (1.2-3.4) k/cumm Absolute Monocytes (0.11-0.7) k/cumm Absolute Eosinophils (0.0-0.7) k/cumm Absolute Basophils (0.0-0.2) k/cumm PT (9.3-11.0) sec INR (0.9-1.1) D-Dimer (<500) ng/mlFEU VBG pH (7.35-7.45) 7.44 VBG pCO2 (34-47) mm/Hg 35 VBG pO2 (28-44) mm/Hg 53 H VBG HCO3 (22-28) mmol/L 24 VBG Total CO2 (22-29) mmol/L 20 L VBG O2 Saturation (70-80) % 88 H VBG Base Excess (-3-3) mmol/L -0.2 Sodium (136-145) mmol/L Potassium (3.5-5.1) mmol/L Chloride (98-107) mmol/L Carbon Dioxide (21.0-32.0) mmol/L Anion Gap (3-11) mmol/L BUN (7-18) mg/dL Creatinine (0.70-1.30) mg/dL Estimated GFR/1.73 m2 (mL/min/1.73m2) Glucose (74-106) mg/dL Lactate (0.6-1.4) mmol/L 2.8 H* Calcium (8.5-10.1) mg/dL Total Bilirubin (0.2-1.0) mg/dL AST (15-37) U/L ALT (16-63) U/L Alkaline Phosphatase (46-116) U/L Troponin I (<0.06) ng/Ml NT-Pro-B Natriuret Pep (<300) pg/mL Total Protein (6.4-8.2) g/dL Albumin (3.4-5.0) g/dL Procalcitonin ng/mL ECG Data Attestation: I personally reviewed and interpreted this ECG (s) as follows: Interpretation: EKG shows sinus rhythm at 99, borderline left axis, no STEMI, nondiagnostic EKG HPI General Mode of arrival: EMS . Date/Time Provider Initiated Documentation: 10/28/19 18:03 . Limitations to Documentation: no limitations . Information obtained by: patient, RN notes reviewed and old records reviewed . HPI Narrative: Lola Edmond is an 84 y/o man with h/o pulmonary HTN, pulmonary fibrosis, chronic resp failure, HLD, HTN, COPD, CAD, AAA presenting to the emergency department with SOB. Pt reports that he was previously on 6L O2 at home at baseline, and in the last 2-3 weeks his PCP increased his O2 to 10LNC. Pt reports that he has felt much more SOB than usual over the past 2 weeks depsite increase in O2. He reports increase in dry cough from baseline over that time as well. Pt reports that in the last few days and especially today has felt overall unwell which prompted him to come to the emergency department. He reports subjective fevers. Denies any pain, vomiting, rash, numbness, weakness. Related Data Home Medications Medication Instructions Recorded Confirmed Comp-Air Elite Comp Neb System #1 ea 06/09/15 08/21/19 aspirin 81 mg PO DAILY tab-cap 05/31/17 10/28/19 acetaminophen [Tylenol] 650 mg PO PRN PRN 08/30/17 10/28/19 omega-3 fatty acids-fish oil 1 ea PO DAILY 12/07/17 10/28/19 vit E-wheat germ-aloe vera 120 gm TOPICAL BID #1 tub 12/29/17 10/28/19 allopurinol 300 mg tablet 150 mg PO DAILY #45 tab-cap 10/05/18 10/28/19 nitroglycerin 0.4 mg sublingual 0.4 mg SL Q5-15M PRN #30 tab 12/24/18 10/28/19 tablet prednisone 5 mg tablet 5 mg PO DAILY #90 tab MDD 7mg 02/22/19 10/28/19 mupirocin 2 % topical ointment 1 applic TP BID #30 gm 03/04/19 10/28/19 Oxygen l NS continuous #2 03/13/19 08/21/19 carvedilol 12.5 mg tablet 12.5 mg PO BID #180 tab-cap 03/28/19 10/28/19 clopidogrel 75 mg tablet 75 mg PO DAILY #90 tab-cap 03/28/19 10/28/19 rosuvastatin 20 mg tablet 20 mg PO DAILY #90 tab 03/28/19 10/28/19 prednisone 1 mg tablet 1 mg PO DAILY #180 tab MDD 7 04/24/19 10/28/19 fluticasone fur. 100 mcg-umeclid 1 inh IH DAILY #28 each 05/01/19 10/28/19 62.5 mcg-vilant 25 mcg inhalat.powder fluticasone propionate 220 1 puff IH Q12H gm 05/16/19 10/28/19 mcg/actuation HFA aerosol inhaler latanoprost 0.005 % eye drops 1 drp OP QPM 05/16/19 10/28/19 tiotropium 2.5 mcg-olodaterol 2.5 2 puff IH DAILY 05/16/19 10/28/19 mcg/actuation mist for inhalation furosemide 40 mg tablet 40 mg PO Q48H #45 tab 05/20/19 10/28/19 losartan 50 mg tablet 50 mg PO DAILY #90 tab-cap 05/20/19 10/28/19 ursodiol 250 mg tablet 250 mg PO BID #180 tab 08/03/19 10/28/19 diltiazem HCl 180 mg 180 mg PO DAILY #90 tab-cap 08/28/19 10/28/19 capsule,extended release 24 hr cholecalciferol (vitamin D3) 10 mcg PO DAILY 10/28/19 10/28/19 potassium chloride 20 meq PO DAILY 10/28/19 10/28/19 Previous Rx's Medication Instructions Recorded vit E-wheat germ-aloe vera 120 gm TOPICAL BID #1 tub 12/29/17 allopurinol 300 mg tablet 150 mg PO DAILY #45 tab-cap 10/05/18 nitroglycerin 0.4 mg sublingual 0.4 mg SL Q5-15M PRN #30 tab 12/24/18 tablet prednisone 5 mg tablet 5 mg PO DAILY #90 tab MDD 7mg 02/22/19 mupirocin 2 % topical ointment 1 applic TP BID #30 gm 03/04/19 carvedilol 12.5 mg tablet 12.5 mg PO BID #180 tab-cap 03/28/19 clopidogrel 75 mg tablet 75 mg PO DAILY #90 tab-cap 03/28/19 rosuvastatin 20 mg tablet 20 mg PO DAILY #90 tab 03/28/19 prednisone 1 mg tablet 1 mg PO DAILY #180 tab MDD 7 04/24/19 fluticasone fur. 100 mcg-umeclid 1 inh IH DAILY #28 each 05/01/19 62.5 mcg-vilant 25 mcg inhalat.powder furosemide 40 mg tablet 40 mg PO Q48H #45 tab 05/20/19 losartan 50 mg tablet 50 mg PO DAILY #90 tab-cap 05/20/19 ursodiol 250 mg tablet 250 mg PO BID #180 tab 08/03/19 diltiazem HCl 180 mg 180 mg PO DAILY #90 tab-cap 08/28/19 capsule,extended release 24 hr Allergies Allergy/AdvReac Type Severity Reaction Status Date / Time adhesive tape Allergy Unknown unknown Verified 10/28/19 18:20 clarithromycin Allergy Unknown unknown Verified 10/28/19 18:20 fentanyl Allergy Unknown unknown Verified 10/28/19 18:20 morphine Allergy Unknown severe Verified 10/28/19 18:20 hallucinations; PTSD-based flashbacks (04/2019) warfarin Allergy Unknown unknown Verified 10/28/19 18:20 amoxicillin [From Augmentin] AdvReac Intermediate stomach Verified 10/28/19 18:20 issues clavulanic acid AdvReac Intermediate stomach Verified 10/28/19 18:20 [From Augmentin] issues gabapentin AdvReac Intermediate HEADACHE Verified 10/28/19 18:20 General Stated Complaint: SOB GISSELLE: 3 Review of Systems Narrative: Constitutional: reports subjective fevers Eyes: denies eye pain ENT: denies ear pain, dental pain, sore throat Cardiovascular: denies chest pain, no edema Respiratory: reports SOB, cough GI: denies abdominal pain, vomiting : denies flank pain MSK: denies back pain, neck pain, arthralgias, myalgias Skin: denies rash Neuro: denies headaches, numbness, weakness PFSH Medical History Acute and chronic respiratory failure with hypoxia (Acute) Adverse drug effect (Chronic) hallucinations on morphine Agent orange exposure (Chronic) Black stool (Acute) probable digested blood from nasopharynx (Hx blood clots, epistaxis) CAD (coronary artery disease) Central obesity (Acute) Chronic dyspnea (Acute) Chronic sinusitis (Acute) COPD (chronic obstructive pulmonary disease) DNI (do not intubate) (Acute) DNR (do not resuscitate) (Acute) Encounter for hospice care discussion (Acute) Essential hypertension Generalized weakness (Acute) High cholesterol ILD (interstitial lung disease) Palliative care patient (Acute) Pulmonary hypertension (Chronic) Surgical History Carotid endarterectomy Cholecystectomy (10/24/17) 11/13/17 laproscopic cholesystectomy with common duct exploration Dr. Aristides Medina, 10/24/17 [facility] [place] laparoscopy, cholydocholithiasis cholecystisis s/p ERCP with percutaneoul cholecystostomy tube placement Cholecystectomy (11/13/17) 11/13/17 laproscopic cholesystectomy with common duct exploration Dr. Aristides Medina, 10/24/17 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 Family History Mother , age 70 from pancreatitis Pancreatitis Father , age 59 from myocardial infarction Heart disease Brother , age 72 from complications of diabetes Diabetes Hypertension Hyperlipidemia Brother , age 60 of unknown cause No problems noted. Sister , in her 60s from diabetes Diabetes Sister , in her late 60s/early 70s from diabetes Diabetes Sister No problems noted. Sister , September 2018 Heart disease Son Chronic post-traumatic stress disorder (PTSD) after combat Social History Smoking/Tobacco Use Status: Former Tobacco Use Alcohol Intake: current Alcohol Intake frequency: a few times a month Drug use: Rarely Substance use type: marijuana Details: recently tried marijuana cookie to see if it would help with back krish n; did not like side effects Caregiver/Support person: Yes ( Ilsa) Household members: spouse Housing: house Number of Children: 1 number of grandchildren: 2 Communication Needs: Hard of Hearing and Corrective Lenses Education Level: high school Details: dropped out but got his GED, has taken college courses Do you need help understanding health information?: Often 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, 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 Pets and animals: Yes What is your relationship status?: How often do you talk on the phone with friends or family?: once per week How often do you get together with friends or relatives?: once per week Panel score (0-1 are the most socially isolated patients): 1 What type of physical activity do you participate in: none and sedentary lifestyle Duration: < 15 minutes/day Padmini/Buddhist: None Special padmini needs: No Agree to transfusion: Yes Seatbelt use: sometimes Helmet use: Yes Drive intox or ride w/intox local truck driver: No Working smoke detector in home: Yes Carbon monox detector in home: Yes Firearms in home: Yes Do you feel safe at home: Yes Do you feel safe in your relationship?: Yes Additional Social history: Ilsa worried about Collyn. He is needing more help. He is discouraged, breathless, exhausted. She sees his breathing is worse. Hates any mind-altering drugs; I need to be in control. Ilsa needs help caring for him. trying to honor his wishes. Exam Narrative Exam Narrative: Constitutional: chronically ill-appearing, pleasant, speaking in short sentences HENT: head atraumatic/normocephalic/normal inspection, mucous membranes moist Eyes: conjunctiva normal, sclera normal, pupils 3mm b/l Neck: no stridor, normal ROM, trachea midline Chest: normal inspection Resp: tachypnea that Pt reports is unchanged over the past 2 weeks or so, mild exp wheeze throughout, rales LLL Cardio: normal rate, normal rhythm, no murmur appreciated GI: abdomen soft, non-tender, non-distended Back: normal inspection, no rash Skin: warm, dry, normal color, no rash Neuro: alert, not altered, grossly non-focal, normal tone Ext: moving all ext equally, no edema Psych: normal mood, normal affect, normal behavior Course Vital Signs Vital signs: Vital Signs Temperature 36.9 C 10/28/19 18:04 Pulse 94 H 10/28/19 18:04 Blood Pressure 127/50 L 10/28/19 18:04 Pulse Oximetry 91 L 10/28/19 18:04 Temperature 36.9 C 10/28/19 18:04 Temperature Source Oral 10/28/19 18:04 Pulse 90 10/28/19 19:01 Pulse 93 H 10/28/19 18:30 Respiratory Rate 21 10/28/19 19:01 Respiratory Effort Labored 10/28/19 18:27 Respiratory Depth Deep 10/28/19 18:27 Respiratory Pattern Normal 10/28/19 18:27 Blood Pressure 129/66 10/28/19 18:28 Blood Pressure Mean 79 10/28/19 18:28 Blood Pressure Position Sitting 10/28/19 18:04 Pulse Oximetry 90 L 10/28/19 19:01 Oxygen Delivery Method Nasal Cannula 10/28/19 19:01 Oxygen Flow Rate 9 10/28/19 19:01 Comment 10/28/19 18:38 Lab/Test Results Lab/Test Results: 10/28/19 18:50 Blood Blood Culture - Pending 10/28/19 18:29 Blood Blood Culture - Pending Laboratory Tests Range/Units 10/28/19 10/28/19 10/28/19 17:30 17:30 17:50 WBC (4.4-10.8) k/cumm RBC (4.50-6.00) m/cumm Hgb (13.5-17.5) g/dL Hct (40.0-50.0) % MCV (80-95) fL MCH (27.0-33.0) pg MCHC (32.0-36.0) g/dL RDW (11.8-14.1) % Plt Count (130-400) x1000/uL MPV (8.0-11.0) fL Immature Gran % % Neutrophils % Lymphocytes % Monocytes % Eosinophils % Basophils % Absolute Neutrophils (1.2-6.7) k/cumm Absolute Lymphocytes (1.2-3.4) k/cumm Absolute Monocytes (0.11-0.7) k/cumm Absolute Eosinophils (0.0-0.7) k/cumm Absolute Basophils (0.0-0.2) k/cumm PT (9.3-11.0) sec 10.3 INR (0.9-1.1) 1.0 D-Dimer (<500) ng/mlFEU VBG pH (7.35-7.45) VBG pCO2 (34-47) mm/Hg VBG pO2 (28-44) mm/Hg VBG HCO3 (22-28) mmol/L VBG Total CO2 (22-29) mmol/L VBG O2 Saturation (70-80) % VBG Base Excess (-3-3) mmol/L Sodium (136-145) mmol/L 137 Potassium (3.5-5.1) mmol/L 4.4 Chloride (98-107) mmol/L 102 Carbon Dioxide (21.0-32.0) mmol/L 24.7 Anion Gap (3-11) mmol/L 10.3 BUN (7-18) mg/dL 18 Creatinine (0.70-1.30) mg/dL 1.21 Estimated GFR/1.73 m2 (mL/min/1.73m2) 57.41 Glucose (74-106) mg/dL 127 H Lactate (0.6-1.4) mmol/L Calcium (8.5-10.1) mg/dL 9.2 Total Bilirubin (0.2-1.0) mg/dL 0.8 AST (15-37) U/L 27 ALT (16-63) U/L 30 Alkaline Phosphatase (46-116) U/L 73 Troponin I (<0.06) ng/Ml < 0.05 NT-Pro-B Natriuret Pep (<300) pg/mL 4571 H Total Protein (6.4-8.2) g/dL 7.6 Albumin (3.4-5.0) g/dL 3.3 L Range/Units 10/28/19 10/28/19 10/28/19 17:50 17:50 17:50 WBC (4.4-10.8) k/cumm 15.29 H RBC (4.50-6.00) m/cumm 5.50 Hgb (13.5-17.5) g/dL 16.9 Hct (40.0-50.0) % 51.6 H MCV (80-95) fL 93.8 MCH (27.0-33.0) pg 30.7 MCHC (32.0-36.0) g/dL 32.8 RDW (11.8-14.1) % 16.4 H Plt Count (130-400) x1000/uL 144 MPV (8.0-11.0) fL 11.7 H Immature Gran % % 0.3 Neutrophils % 72.3 Lymphocytes % 16.0 Monocytes % 11.2 Eosinophils % 0.1 Basophils % 0.1 Absolute Neutrophils (1.2-6.7) k/cumm 11.05 H Absolute Lymphocytes (1.2-3.4) k/cumm 2.45 Absolute Monocytes (0.11-0.7) k/cumm 1.71 H Absolute Eosinophils (0.0-0.7) k/cumm 0.02 Absolute Basophils (0.0-0.2) k/cumm 0.02 PT (9.3-11.0) sec INR (0.9-1.1) D-Dimer (<500) ng/mlFEU 779 H VBG pH (7.35-7.45) 7.44 VBG pCO2 (34-47) mm/Hg 35 VBG pO2 (28-44) mm/Hg 53 H VBG HCO3 (22-28) mmol/L 24 VBG Total CO2 (22-29) mmol/L 20 L VBG O2 Saturation (70-80) % 88 H VBG Base Excess (-3-3) mmol/L -0.2 Sodium (136-145) mmol/L Potassium (3.5-5.1) mmol/L Chloride (98-107) mmol/L Carbon Dioxide (21.0-32.0) mmol/L Anion Gap (3-11) mmol/L BUN (7-18) mg/dL Creatinine (0.70-1.30) mg/dL Estimated GFR/1.73 m2 (mL/min/1.73m2) Glucose (74-106) mg/dL Lactate (0.6-1.4) mmol/L Calcium (8.5-10.1) mg/dL Total Bilirubin (0.2-1.0) mg/dL AST (15-37) U/L ALT (16-63) U/L Alkaline Phosphatase (46-116) U/L Troponin I (<0.06) ng/Ml NT-Pro-B Natriuret Pep (<300) pg/mL Total Protein (6.4-8.2) g/dL Albumin (3.4-5.0) g/dL Range/Units 10/28/19 17:50 WBC (4.4-10.8) k/cumm RBC (4.50-6.00) m/cumm Hgb (13.5-17.5) g/dL Hct (40.0-50.0) % MCV (80-95) fL MCH (27.0-33.0) pg MCHC (32.0-36.0) g/dL RDW (11.8-14.1) % Plt Count (130-400) x1000/uL MPV (8.0-11.0) fL Immature Gran % % Neutrophils % Lymphocytes % Monocytes % Eosinophils % Basophils % Absolute Neutrophils (1.2-6.7) k/cumm Absolute Lymphocytes (1.2-3.4) k/cumm Absolute Monocytes (0.11-0.7) k/cumm Absolute Eosinophils (0.0-0.7) k/cumm Absolute Basophils (0.0-0.2) k/cumm PT (9.3-11.0) sec INR (0.9-1.1) D-Dimer (<500) ng/mlFEU VBG pH (7.35-7.45) VBG pCO2 (34-47) mm/Hg VBG pO2 (28-44) mm/Hg VBG HCO3 (22-28) mmol/L VBG Total CO2 (22-29) mmol/L VBG O2 Saturation (70-80) % VBG Base Excess (-3-3) mmol/L Sodium (136-145) mmol/L Potassium (3.5-5.1) mmol/L Chloride (98-107) mmol/L Carbon Dioxide (21.0-32.0) mmol/L Anion Gap (3-11) mmol/L BUN (7-18) mg/dL Creatinine (0.70-1.30) mg/dL Estimated GFR/1.73 m2 (mL/min/1.73m2) Glucose (74-106) mg/dL Lactate (0.6-1.4) mmol/L 2.8 H* Calcium (8.5-10.1) mg/dL Total Bilirubin (0.2-1.0) mg/dL AST (15-37) U/L ALT (16-63) U/L Alkaline Phosphatase (46-116) U/L Troponin I (<0.06) ng/Ml NT-Pro-B Natriuret Pep (<300) pg/mL Total Protein (6.4-8.2) g/dL Albumin (3.4-5.0) g/dL
[2019-10-28] MEDS: Ipratropium/Albuterol 4 GM 120 PUFF INH 6 PUFF IH (19:11)
[2019-10-28] MEDS: PIPERACILLIN/TAZO 4.5 GM in Normal Saline 100 ML IVPB (19:32)
--- NOTE | 2019-10-28 19:42 | NUR.NOTE ---
Assumed care of pt at 1905. report from Jaja. Sats 8-90% on 10L of O2 via NC, states has been on 10L x several months. Today feeling increased SOB, came in by ambulance. #20 LFA, Leannesyn infusing a/o. SR on monitor in 80's. Denies pain. Pt reports he has not been out of his home or in contact with anyone with covid. Denies fevers at home.
[2019-10-28 19:55] LABS: Procalcitonin < 0.1 ng/mL
--- NOTE | 2019-10-28 20:21 | HPE_ITS ---
Date of service: 10/28/19 Time of Service: 20:22 Assessment and Plan Assessment and plan (1) SOB (shortness of breath): Status: Acute Assessment and plan: SOB. With cough, leukocytosis abd probable infiltrate will go ahead and call a pneumonia. BNP also up, perhaps element of CHF as well. Will continue Zosyn and add Levaquin for atypical coverage. Modest probability COVID and will treat as PUI, pending swab. Will give extra dose diurretic as well but I do think this is mainly an infectious matter. Note prior Palliative consult, patient is DNR/DNI. History of Present Illness History of Present Illness Chief Complaint: SOB Narrative: 84 male with chronic respiratory insufficiency due to pulmonary fibrosis on home O2 with sats usually in high 80s on 10L (per ER report) -- here with 1-2 weeks of cough and increasing SOB. No fever or CP. In ER findings of note for white count 15 and CXR with probable LLL infiltrate. Given dose Zosyn and admitted for further management. Note that some modest wheezing reported in ER, patient says no help with dose Combivent (states it never helps). Review of Systems All systems reviewed & are unremarkable except as noted in HPI and below PFSH Medical History Acute and chronic respiratory failure with hypoxia (Acute) Adverse drug effect (Chronic) hallucinations on morphine Agent orange exposure (Chronic) Black stool (Acute) probable digested blood from nasopharynx (Hx blood clots, epistaxis) CAD (coronary artery disease) Central obesity (Acute) Chronic dyspnea (Acute) Chronic sinusitis (Acute) COPD (chronic obstructive pulmonary disease) DNI (do not intubate) (Acute) DNR (do not resuscitate) (Acute) Encounter for hospice care discussion (Acute) Essential hypertension Generalized weakness (Acute) High cholesterol ILD (interstitial lung disease) Palliative care patient (Acute) Pulmonary hypertension (Chronic) Surgical History Carotid endarterectomy Cholecystectomy (10/24/17) 11/13/17 laproscopic cholesystectomy with common duct exploration Dr. Aristides Medina, [place] [facility] [place], cholydocholithiasis cholecystisis s/p ERCP with percutaneoul cholecystostomy tube placement Cholecystectomy (11/13/17) 11/13/17 laproscopic cholesystectomy with common duct exploration Dr. 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 Family History Mother , age 70 from pancreatitis Pancreatitis Father , age 59 from myocardial infarction Heart disease Brother , age 72 from complications of diabetes Diabetes Hypertension Hyperlipidemia Brother , age 60 of unknown cause No problems noted. Sister , in her 60s from diabetes Diabetes Sister , in her late 60s/early 70s from diabetes Diabetes Sister No problems noted. Sister , September 2018 Heart disease Son Chronic post-traumatic stress disorder (PTSD) after combat Social History Smoking/Tobacco Use Status: Former Tobacco Use Alcohol Intake: current Alcohol Intake frequency: a few times a month Drug use: Rarely Substance use type: marijuana Details: recently tried marijuana cookie to see if it would help with back pain; did not like side effects Caregiver/Support person: Yes ( Ilsa) Household members: spouse Housing: house Number of Children: 1 number of grandchildren: 2 Communication Needs: Hard of Hearing and Corrective Lenses Education Level: high school Details: dropped out but got his GED, has taken college courses Do you need help understanding health information?: Often 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, 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 Pets and animals: Yes What is your relationship status?: How often do you talk on the phone with friends or family?: once per week How often do you get together with friends or relatives?: once per week Panel score (0-1 are the most socially isolated patients): 1 What type of physical activity do you participate in: none and sedentary lifestyle Duration: < 15 minutes/day Padmini/Hinduism: None Special padmini needs: No Agree to transfusion: Yes Seatbelt use: sometimes Helmet use: Yes Drive intox or ride w/intox driver manager: No Working smoke detector in home: Yes Carbon monox detector in home: Yes Firearms in home: Yes Do you feel safe at home: Yes Do you feel safe in your relationship?: Yes Additional Social history: Ilsa worried about Collyn. He is needing more help. He is discouraged, breathless, exhausted. She sees his breathing is worse. Hates any mind-altering drugs; I need to be in control. Ilsa needs help caring for him. trying to honor his wishes. Meds Home Medications and Allergies Home Medications Medication Instructions Recorded Confirmed Type Comp-Air Elite Comp Neb System #1 ea 06/09/15 08/21/19 History aspirin 81 mg PO DAILY tab-cap 05/31/17 10/28/19 History acetaminophen [Tylenol] 650 mg PO PRN PRN 08/30/17 10/28/19 History omega-3 fatty acids-fish oil 1 ea PO DAILY 12/07/17 10/28/19 History vit E-wheat germ-aloe vera 120 gm TOPICAL BID #1 tub 12/29/17 10/28/19 Rx allopurinol 300 mg tablet 150 mg PO DAILY #45 tab-cap 10/05/18 10/28/19 Rx nitroglycerin 0.4 mg sublingual 0.4 mg SL Q5-15M PRN #30 tab 12/24/18 10/28/19 Rx tablet prednisone 5 mg tablet 5 mg PO DAILY #90 tab MDD 7mg 02/22/19 10/28/19 Rx mupirocin 2 % topical ointment 1 applic TP BID #30 gm 03/04/19 10/28/19 Rx Oxygen l NS continuous #2 03/13/19 08/21/19 History carvedilol 12.5 mg tablet 12.5 mg PO BID #180 tab-cap 03/28/19 10/28/19 Rx clopidogrel 75 mg tablet 75 mg PO DAILY #90 tab-cap 03/28/19 10/28/19 Rx rosuvastatin 20 mg tablet 20 mg PO DAILY #90 tab 03/28/19 10/28/19 Rx prednisone 1 mg tablet 1 mg PO DAILY #180 tab MDD 7 04/24/19 10/28/19 Rx fluticasone fur. 100 mcg-umeclid 1 inh IH DAILY #28 each 05/01/19 10/28/19 Rx 62.5 mcg-vilant 25 mcg inhalat.powder fluticasone propionate 220 1 puff IH Q12H gm 05/16/19 10/28/19 History mcg/actuation HFA aerosol inhaler latanoprost 0.005 % eye drops 1 drp OP QPM 05/16/19 10/28/19 History tiotropium 2.5 mcg-olodaterol 2.5 2 puff IH DAILY 05/16/19 10/28/19 History mcg/actuation mist for inhalation furosemide 40 mg tablet 40 mg PO Q48H #45 tab 05/20/19 10/28/19 Rx losartan 50 mg tablet 50 mg PO DAILY #90 tab-cap 05/20/19 10/28/19 Rx ursodiol 250 mg tablet 250 mg PO BID #180 tab 08/03/19 10/28/19 Rx diltiazem HCl 180 mg 180 mg PO DAILY #90 tab-cap 08/28/19 10/28/19 Rx capsule,extended release 24 hr cholecalciferol (vitamin D3) 10 mcg PO DAILY 10/28/19 10/28/19 History potassium chloride 20 meq PO DAILY 10/28/19 10/28/19 History Allergies Allergy/AdvReac Type Severity Reaction Status Date / Time adhesive tape Allergy Unknown unknown Verified 10/28/19 18:20 clarithromycin Allergy Unknown unknown Verified 10/28/19 18:20 fentanyl Allergy Unknown unknown Verified 10/28/19 18:20 morphine Allergy Unknown severe Verified 10/28/19 18:20 hallucinations; PTSD-based flashbacks (04/2019) warfarin Allergy Unknown unknown Verified 10/28/19 18:20 amoxicillin [From Augmentin] AdvReac Intermediate stomach Verified 10/28/19 18:20 issues clavulanic acid AdvReac Intermediate stomach Verified 10/28/19 18:20 [From Augmentin] issues gabapentin AdvReac Intermediate HEADACHE Verified 10/28/19 18:20 Exam Narrative Exam Narrative: 127/82, 88, 26, 37.2, 90%. HEENT atraumatic; neck supple; lungs coarse sounds, few rhonchi LLL; heart distant but RRR, abdomen soft and NT; extremities w/o edema; neuro ox3, non-focal Results Labs Result diagrams: 10/28/19 17:50 10/28/19 17:50 Labs: Laboratory Results - last 24 hr 10/28/19 10/28/1910/27/20 17:05 17:30 17:30 WBC RBC Hgb Hct MCV MCH MCHC RDW Plt Count MPV Immature Gran % Neutrophils % Lymphocytes % Monocytes % Eosinophils % Basophils % Absolute Neutrophils Absolute Lymphocytes Absolute Monocytes Absolute Eosinophils Absolute Basophils PT 10.3 INR 1.0 D-Dimer VBG pH VBG pCO2 VBG pO2 VBG HCO3 VBG Total CO2 VBG O2 Saturation VBG Base Excess Sodium Potassium Chloride Carbon Dioxide Anion Gap BUN Creatinine Estimated GFR/1.73 m2 Glucose Lactate Calcium Total Bilirubin AST ALT Alkaline Phosphatase Troponin I NT-Pro-B Natriuret Pep 4571 H Total Protein Albumin Procalcitonin < 0.1 10/28/19 10/28/19 10/28/19 17:50 17:50 17:50 WBC 15.29 H RBC 5.50 Hgb 16.9 Hct 51.6 H MCV 93.8 MCH 30.7 MCHC 32.8 RDW 16.4 H Plt Count 144 MPV 11.7 H Immature Gran % 0.3 Neutrophils % 72.3 Lymphocytes % 16.0 Monocytes % 11.2 Eosinophils % 0.1 Basophils % 0.1 Absolute Neutrophils 11.05 H Absolute Lymphocytes 2.45 Absolute Monocytes 1.71 H Absolute Eosinophils 0.02 Absolute Basophils 0.02 PT INR D-Dimer 779 H VBG pH VBG pCO2 VBG pO2 VBG HCO3 VBG Total CO2 VBG O2 Saturation VBG Base Excess Sodium 137 Potassium 4.4 Chloride 102 Carbon Dioxide 24.7 Anion Gap 10.3 BUN 18 Creatinine 1.21 Estimated GFR/1.73 m2 57.41 Glucose 127 H Lactate Calcium 9.2 Total Bilirubin 0.8 AST 27 ALT 30 Alkaline Phosphatase 73 Troponin I < 0.05 NT-Pro-B Natriuret Pep Total Protein 7.6 Albumin 3.3 L Procalcitonin 10/28/19 10/28/19 17:50 17:50 WBC RBC Hgb Hct MCV MCH MCHC RDW Plt Count MPV Immature Gran % Neutrophils % Lymphocytes % Monocytes % Eosinophils % Basophils % Absolute Neutrophils Absolute Lymphocytes Absolute Monocytes Absolute Eosinophils Absolute Basophils PT INR D-Dimer VBG pH 7.44 VBG pCO2 35 VBG pO2 53 H VBG HCO3 24 VBG Total CO2 20 L VBG O2 Saturation 88 H VBG Base Excess -0.2 Sodium Potassium Chloride Carbon Dioxide Anion Gap BUN Creatinine Estimated GFR/1.73 m2 Glucose Lactate 2.8 H* Calcium Total Bilirubin AST ALT Alkaline Phosphatase Troponin I NT-Pro-B Natriuret Pep Total Protein Albumin Procalcitonin Last Vital Signs Temp 37.2 C 10/28/19 19:51 Pulse 88 10/28/19 19:51 Resp 26 H 10/28/19 19:51 BP 127/82 10/28/19 19:51 Pulse Ox 90 L 10/28/19 19:51
[2019-10-28] MEDS: Furosemide 40 MG/4 ML VIAL IVP (21:45)
[2019-10-28] MEDS: Enoxaparin 40 MG/0.4 ML SYR SC (22:42)
[2019-10-28] MEDS: Normal Saline Flush 10 ML SYR IVP (22:42)
[2019-10-28] MEDS: levoFLOXacin 500 MG/100 ML BAG 100 MG IVPB (22:43)
[2019-10-28] MEDS: Mometasone 220 MCG 14 DOSE INHALER 2 PUFF IH (22:56)
[2019-10-29] VITALS (11 sets, daily range): BP systolic 98–113; BP diastolic 57–61; PULSE 74–90; RESP 18–20; TEMP 31–37.8; O2SAT 85–92
[2019-10-29] MEDS: Normal Saline Flush 10 ML SYR IVP ×3 (01:56→19:58)
[2019-10-29] MEDS: PIPERACILLIN/TAZO 3.375 GM in Normal Saline 50 ML IVPB ×3 (01:56→13:34)
[2019-10-29 07:04] LABS: HCT 46.8 % (40.0-50.0); HGB 15.4 g/dL (13.5-17.5); Mean Corp. HGB Concentration 32.9 g/dL (32.0-36.0); Mean Corpuscular Hemoglobin 30.8 pg (27.0-33.0); Mean Corpuscular Volume 93.6 fL (80-95); Mean Platelet Volume 11.3 fL (8.0-11.0); Platelet Count 141 x1000/uL (130-400); RBC Distribution Width 16.6 % (11.8-14.1); White Blood Cell Count 11.48 k/cumm (4.4-10.8)
[2019-10-29 07:13] LABS: Anion Gap 9.9 mmol/L (3-11); BUN 21 mg/dL (7-18); CO2 25.1 mmol/L (21.0-32.0); CREATININE 1.33 mg/dL (0.70-1.30); Calcium 8.6 mg/dL (8.5-10.1); Chloride 102 mmol/L (98-107); Estimated GFR 51.48 (mL/min/1.73m2); Glucose 98 mg/dL (74-106); Potassium 3.5 mmol/L (3.5-5.1); Sodium 137 mmol/L (136-145)
[2019-10-29] MEDS: Mometasone 220 MCG 14 DOSE INHALER 2 PUFF IH (07:49)
[2019-10-29] MEDS: dilTIAZem CD 180 MG CAPCR PO (07:56)
[2019-10-29] MEDS: Allopurinol 300 MG TAB 150 MG PO (07:56)
[2019-10-29] MEDS: Carvedilol 12.5 MG TAB PO ×2 (07:56→19:21)
[2019-10-29] MEDS: Clopidogrel 75 MG TAB PO (07:56)
[2019-10-29] MEDS: Potassium Chloride 20 MEQ TABCR PO (07:56)
[2019-10-29] MEDS: Aspirin E.C. 81 MG TABEC PO (07:56)
[2019-10-29] MEDS: Losartan 50 MG TAB PO (07:57)
--- NOTE | 2019-10-29 08:38 | PGE_ITS ---
Date of Service Date of service: 10/29/19 Time of Service: 08:38 Assessment and Plan Assessment and plan (1) Acute and chronic respiratory failure with hypoxia: Status: Acute Assessment and plan: multifactorial. stable. continue treatment for pneumonia, heart failure and possible copd exacerbation as outlined below. (2) CHF (congestive heart failure): Status: Chronic Assessment and plan: elevated BNP at 4500, will repeat in am. no recent echo so one ordered and pending.. received IV lasix and will continue with daily lasix for now (takes q48h at home). continue close monitor of kidney functions and electrolytes. continue daily weights, I&O. continue ARB. (3) Pneumonia: Status: Acute Assessment and plan: day 2 of levaquin and zosyn. pharmacy adjusted for renal dosing. continue aggressive pulmonary toileting. continue respiratory inhalers. patient refuses trelegy. will check procalcitonin in am. (4) Pulmonary hypertension: Status: Acute Assessment and plan: elevated BNP at 4500, no recent echo. received IV lasix. will continue with daily lasix for now. continue close monitor of kidney functions and electrolytes. echo ordered and pending. daily weights, I&O. (5) COPD (chronic obstructive pulmonary disease): Status: Acute Assessment and plan: no extra steroids indicated at this time. will continue home dose steroids and inhalers. will start steroid burst in setting of wheezing, increased sputum production. refusing trelegy inhaler, will continue combivent, budesonide/formoterol, spiriva. respiratory therapy following closely. It is medically necessary and beneficial that Lola receive NIV via Trilogy in the home to treat his severe end stage Chronic Respiratory Failure with hypoxia secondary to COPD. Lola experiences frequent on going periods of extreme shortness of breath, lethargy, unable to perform basic ADL?s without his ?s assistance, frequent hospitalizations, and excessive nebulizer usage, high litter flows of oxygen and as a result an overall poor quality of life as his disease process inevitability worsens. The Trilogy will allow Lola to function at his current baseline and help him maintain independence with basic ADL?s by treating the underlying chronic disease process causing his shortness of breath that is currently limiting at this point of his disease process. A traditional BI-PAP would not be effective in treating his current respiratory issues and MARCIA is not an underlying cause contributing to any of his current complex chronic respiratory issues. Trilogy allows for two different NIV prescriptions one to use during the day/wakefulness (MPV) and one to use when sleeping (Avaps-AE), both of these modes are only found within the Trilogy NIV device. Avaps-AE will assist him with meeting his demands of a tidal volume and minute ventilation by allowing a longer expiratory time reducing the effects of flow limitation and air trapping, decrease his current work of breathing, decrease CO2 retention, increase his oxygenation and most importantly improve his current quality of life. Mouth piece ventilation (MPV) will allow the patient to ?SIP and Puff? breaths during the daytime periods when he finds himself short of breath and needing extra support. It is medically necessary that he use the NIV via the Trilogy up to 24 hours daily (MPV/AVAPS-AE). The Trilogy operates on a battery so he can use the therapy uninterrupted for medical appointments or even during power outages as a lapse in use may lead to life threatening consequences. I am aware that normally the patient would require a ABG or PFT to qualify for this device however these test will not be obtained as they are not deemed medically necessary unless it is an emergency du ring this time period of COVID-19 (6) CAD (coronary artery disease): Status: Acute Assessment and plan: stable with troponin and repeat troponin negative, no acute st segment changes. no reports of chest pain. will continue asa, beta yuliya, statin. (7) HTN (hypertension): Status: Acute Assessment and plan: blood pressures have been stable. (8) DVT prophylaxis: Status: Acute Assessment and plan: enoxaparin daily (9) Discharge planning issues: Status: Acute Assessment and plan: plan to discharge to home with appropriate services if needed. case management following. Subjective Subjective Patient reports: tolerating liquids well, tolerating a regular diet, voiding w/o difficulty and afebrile Interval history since last seen: patient reports breathing improved some but with no exercise tolerance. He has increased cough with increase sputum production. no fevers or c/o chest pain. he is voiding well. Exam Const General: cooperative, comfortable, no acute distress, in distress moderate (with activity) and respiratory, disheveled, frail appearing and ill appearing chronically Nutritional Appearance: overweight Orientation: alert, awake and oriented x3 HENMT Head: normal to inspection, normocephalic and atraumatic Mouth: oral mucosae normal (slightly dry, no exudates) Chest Chest: normal inspection of the chest Resp Effort & Inspection: able to speak in complete sentences, no audible wheezes and cough Quality of cough: productive Auscultation: wheezes expiratory wheezes, inspiratory wheezes and scattered wheezes Cardio Rate: regular rate Rhythm: regular rhythm GI Inspection: distended and obesity Palpation: soft and hernia (soft, reducible. ) Auscultation: normal bowel sounds General: other (medium yellow urine in urinal) Skin General skin exam: no rashes or lesions noted Neuro General: patient alert, patient awake, patient oriented x3 and moves all extremities Cognition: normal cognition Speech: speech normal Motor: muscle tone normal throughout Extrem General: normal to inspection and full ROM Psych Mental Status: mental status grossly normal Speech and Movement: speech and movement normal Attitude: cooperative Thought Process: normal Thought Content: normal Objective Objective Clinical Data: Abnormal lab results 10/28/19 10/28/19 10/28/19 Range/Units 17:30 17:50 17:50 WBC 15.29 H (4.4-10.8) k/cumm Hct 51.6 H (40.0-50.0) % RDW 16.4 H (11.8-14.1) % MPV 11.7 H (8.0-11.0) fL Absolute Neutrophils 11.05 H (1.2-6.7) k/cumm Absolute Monocytes 1.71 H (0.11-0.7) k/cumm D-Dimer (<500) ng/mlFEU VBG pO2 (28-44) mm/Hg VBG Total CO2 (22-29) mmol/L VBG O2 Saturation (70-80) % BUN (7-18) mg/dL Creatinine (0.70-1.30) mg/dL Glucose 127 H (74-106) mg/dL Lactate (0.6-1.4) mmol/L NT-Pro-B Natriuret Pep 4571 H (<300) pg/mL Albumin 3.3 L (3.4-5.0) g/dL 10/28/19 10/28/19 10/28/19 Range/Units 17:50 17:50 17:50 WBC (4.4-10.8) k/cumm Hct (40.0-50.0) % RDW (11.8-14.1) % MPV (8.0-11.0) fL Absolute Neutrophils (1.2-6.7) k/cumm Absolute Monocytes (0.11-0.7) k/cumm D-Dimer 779 H (<500) ng/mlFEU VBG pO2 53 H (28-44) mm/Hg VBG Total CO2 20 L (22-29) mmol/L VBG O2 Saturation 88 H (70-80) % BUN (7-18) mg/dL Creatinine (0.70-1.30) mg/dL Glucose (74-106) mg/dL Lactate 2.8 H* (0.6-1.4) mmol/L NT-Pro-B Natriuret Pep (<300) pg/mL Albumin (3.4-5.0) g/dL 10/29/19 10/29/19 Range/Units 06:45 06:45 WBC 11.48 H (4.4-10.8) k/cumm Hct (40.0-50.0) % RDW 16.6 H (11.8-14.1) % MPV 11.3 H (8.0-11.0) fL Absolute Neutrophils (1.2-6.7) k/cumm Absolute Monocytes (0.11-0.7) k/cumm D-Dimer (<500) ng/mlFEU VBG pO2 (28-44) mm/Hg VBG Total CO2 (22-29) mmol/L VBG O2 Saturation (70-80) % BUN 21 H (7-18) mg/dL Creatinine 1.33 H (0.70-1.30) mg/dL Glucose (74-106) mg/dL Lactate (0.6-1.4) mmol/L NT-Pro-B Natriuret Pep (<300) pg/mL Albumin (3.4-5.0) g/dL Vital Signs Temperature 37.8 C H 10/29/19 07:46 Temperature Source Tympanic 10/29/19 07:46 Pulse 90 10/29/19 07:46 Pulse Rhythm Regular 10/29/19 02:53 Pulse 93 H 10/28/19 18:30 Respiratory Rate 18 10/29/19 07:46 Respiratory Effort 10/29/19 02:53 Respiratory Depth Normal 10/29/19 02:53 Respiratory Pattern Tachypnea 10/29/19 02:53 Blood Pressure 113/60 10/29/19 07:46 Blood Pressure Mean 79 10/28/19 18:28 Blood Pressure Position Sitting 10/28/19 18:04 Pulse Oximetry 91 L 10/29/19 07:49 Oxygen Delivery Method Hi Flow Nasal Cannula 10/29/19 07:49 Oxygen Flow Rate 10 10/29/19 07:46 Pain Level 0 10/29/19 07:46 Comment 10/28/19 21:47 Intake & Output 10/28/19 10/28/19 10/29/19 11:59 23:59 11:59 Intake Total 110 / 210 150 / 150 Output Total 400 / 400 700 / 700 Balance -290 / -190 -550 / -550 Weight 92.3 kg Intake: IV 110 / 210 150 / 150 Output: Urine 400 / 400 700 / 700 Other: Urine Color Light Taylor Pale Urine Appearance Clear Clear Urine Odor None Voiding Methods Urinal Urinal Laboratory Results WBC 11.48 k/cumm (4.4-10.8) H 10/29/19 06:45 RBC 5.00 m/cumm (4.50-6.00) 10/29/19 06:45 Hgb 15.4 g/dL (13.5-17.5) 10/29/19 06:45 Hct 46.8 % (40.0-50.0) 10/29/19 06:45 MCV 93.6 fL (80-95) 10/29/19 06:45 MCH 30.8 pg (27.0-33.0) 10/29/19 06:45 MCHC 32.9 g/dL (32.0-36.0) 10/29/19 06:45 RDW 16.6 % (11.8-14.1) H 10/29/19 06:45 Plt Count 141 x1000/uL (130-400) 10/29/19 06:45 MPV 11.3 fL (8.0-11.0) H 10/29/19 06:45 Immature Gran % 0.3 % 10/28/19 17:50 Neutrophils % 72.3 10/28/19 17:50 Lymphocytes % 16.0 10/28/19 17:50 Monocytes % 11.2 10/28/19 17:50 Eosinophils % 0.1 10/28/19 17:50 Basophils % 0.1 10/28/19 17:50 Absolute Neutrophils 11.05 k/cumm (1.2-6.7) H 10/28/19 17:50 Absolute Lymphocytes 2.45 k/cumm (1.2-3.4) 10/28/19 17:50 Absolute Monocytes 1.71 k/cumm (0.11-0.7) H 10/28/19 17:50 Absolute Eosinophils 0.02 k/cumm (0.0-0.7) 10/28/19 17:50 Absolute Basophils 0.02 k/cumm (0.0-0.2) 10/28/19 17:50 PT 10.3 sec (9.3-11.0) 10/28/19 17:30 INR 1.0 (0.9-1.1) 10/28/19 17:30 D-Dimer 779 ng/mlFEU (<500) H 10/28/19 17:50 VBG pH 7.44 (7.35-7.45) 10/28/19 17:50 VBG pCO2 35 mm/Hg (34-47) 10/28/19 17:50 VBG pO2 53 mm/Hg (28-44) H 10/28/19 17:50 VBG HCO3 24 mmol/L (22-28) 10/28/19 17:50 VBG Total CO2 20 mmol/L (22-29) L 10/28/19 17:50 VBG O2 Saturation 88 % (70-80) H 10/28/19 17:50 VBG Base Excess -0.2 mmol/L (-3-3) 10/28/19 17:50 Sodium 137 mmol/L (136-145) 10/29/19 06:45 Potassium 3.5 mmol/L (3.5-5.1) 10/29/19 06:45 Chloride 102 mmol/L (98-107) 10/29/19 06:45 Carbon Dioxide 25.1 mmol/L (21.0-32.0) 10/29/19 06:45 Anion Gap 9.9 mmol/L (3-11) 10/29/19 06:45 BUN 21 mg/dL (7-18) H 10/29/19 06:45 Creatinine 1.33 mg/dL (0.70-1.30) H 10/29/19 06:45 Estimated GFR/1.73 m2 51.48 (mL/min/1.73m2) 10/29/19 06:45 Glucose 98 mg/dL (74-106) 10/29/19 06:45 Lactate 2.8 mmol/L (0.6-1.4) H* 10/28/19 17:50 Calcium 8.6 mg/dL (8.5-10.1) 10/29/19 06:45 Total Bilirubin 0.8 mg/dL (0.2-1.0) 10/28/19 17:50 AST 27 U/L (15-37) 10/28/19 17:50 ALT 30 U/L (16-63) 10/28/19 17:50 Alkaline Phosphatase 73 U/L (46-116) 10/28/19 17:50 Troponin I Cancelled 10/28/19 21:03 NT-Pro-B Natriuret Pep 4571 pg/mL (<300) H 10/28/19 17:30 Total Protein 7.6 g/dL (6.4-8.2) 10/28/19 17:50 Albumin 3.3 g/dL (3.4-5.0) L 10/28/19 17:50 Procalcitonin < 0.1 ng/mL 10/28/19 17:05
[2019-10-29] MEDS: predniSONE 1 MG TAB 2 MG PO (08:50)
[2019-10-29] MEDS: predniSONE 5 MG TAB PO (08:50)
[2019-10-29 10:48] LABS: Troponin I < 0.05 ng/Ml (<0.06)
[2019-10-29] MEDS: Furosemide 40 MG/4 ML VIAL IVP (10:54)
[2019-10-29] MEDS: predniSONE 20 MG TAB 40 MG PO (10:55)
[2019-10-29] MEDS: Tiotropium Bromide-Respimat 10 PUFF INH 2 PUFF IH (11:03)
[2019-10-29] MEDS: Budesonide/Formoterol 160/4.5 6 GM 60 PUFF INH IH ×2 (11:03→19:20)
--- NOTE | 2019-10-29 11:36 | INITIAL_ITS ---
- If Service Date Differs Date of service: 10/29/19 Time of Service: 11:36 Care Management Initial Assess REASON FOR HOSPITALIZATION:: Pneumonia PAST MEDICAL HISTORY/PAST SURGICAL HISTORY:: Coronary artery disease, back problems; sciatica, Post code, small aortic aneursym, CABG, Cardiac Catheterization, Pacer/Defib Insertion PREVIOUS FUNCTIONAL STATUS/SOCIAL/FAMILY SUPPORTS:: Lola resides with his , Ilsa in [place], [place]. The couple report being snow birds for twenty years prior to deciding to stay put in [facility] year round about two years ago. Lola reports they have not been able to break into the social scene yet and enjoy events and eating out but do not have primary friends they spend time with. 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 The couple has a dog; Woof who is a mini black lab who they speak adoringly about. CURRENT FUNCTIONAL STATUS:: Lola is a 84 year old male that lives locally with his spouse Ilsa whom he has been to for 25 years. He is a 100% [facility] connected he receives local primary care support and has a local pharmacy. He states he is able to fill his medications locally. He is not interested in Hospice or Palliative care. He states when he dies it will be of a natural and did not want any medications to help with this. 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 ADVANCE DIRECTIVES:: Colst on file he states he ripped his colst up at home and no longer needed it. He does not want to complete another one he also does not want hospice or pallaitive care. Has patient been provided with information about the portal?: Yes Did the patient sign up for the portal?: No CODE STATUS:: DNR/DNI INSURANCE COVERAGE / FINANCIAL ISSUES:: Medicare. for Life CURRENT HOME/COMMUNITY SERVICES/EQUIPMENT:: Home O2 through [facility] including a smaller portable tank. No other services or equipment reported. PRIMARY CARE PHYSICIAN:: POTENTIAL DISCHARGE NEEDS:: Follow up appointment with PCP as directed and new home health services for nursing and OT PATIENT/FAMILY EDUCATION NEEDS:: Review of discharge instructions, discuss Ask Me Three. ANTICIPATED BARRIERS TO DISCHARGE:: None identified at this time. TRANSPORTATION:: Lola will transport home via private vehicle with his , Ilsa. PLAN:: Lola will discharge home when ready per MD. He will home health services new nursing and OT. He will have resumtion of home O2 through [facility] and transport home via private vehicle with his , Ilsa.
--- NOTE | 2019-10-29 12:30 | DI.RAD_ITS ---
EXAM: XR PORTABLE CHEST AP CLINICAL HISTORY: respiratory failure TECHNIQUE: 2D digital imaging was performed. COMPARISON: CR,XR XR PORTABLE CHEST AP from 10/28/2019 FINDINGS: MEDIASTINUM: Normal. HEART: Status post CABG. No cardiomegaly. PULMONARY VASCULATURE: Normal. LUNGS: Increased lung markings again noted in the left base. Overall, there do appear to be prominen t interstitial markings throughout. The may be chronic reflecting pulmonary fibrosis. Acute interst itial edema or pneumonia cannot be excluded. PLEURAL SPACE: No pleural effusion or pneumothorax. BONE:Normal. OTHER FINDINGS:Status post sternotomy. IMPRESSION: Overall, there does not appear to be significant change in appearance of the chest x-ray since 020. DATA REPOSITORY: RADIATION DOSE DELIVERED:
--- NOTE | 2019-10-29 13:04 | PHACLINREV_ITS ---
Pharmacy Admission Review - Admission Clinical Review (Last Reviewed 10/29/19 @ 08:25 by Ilda Gomes MD) Discharge planning issues (Acute) DVT prophylaxis (Acute) Pneumonia (Acute) SOB (shortness of breath) (Acute) Pulmonary hypertension (Acute) Acute and chronic respiratory failure with hypoxia (Acute) HTN (hypertension) (Acute 10/21/14) COPD (chronic obstructive pulmonary disease) (Acute 10/21/14) CAD (coronary artery disease) (Acute 10/21/14) adhesive tape Allergy (Unknown, Verified 10/28/19 18:20) unknown clarithromycin Allergy (Unknown, Verified 10/28/19 18:20) unknown fentanyl Allergy (Unknown, Verified 10/28/19 18:20) unknown morphine Allergy (Unknown, Verified 10/28/19 18:20) severe hallucinations; PTSD-based flashbacks (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) warfarin Allergy (Unknown, Verified 10/28/19 18:20) unknown amoxicillin [From Augmentin] Adverse Reaction (Intermediate, Verified 10/28/19 18:20) stomach issues clavulanic acid [From Augmentin] Adverse Reaction (Intermediate, Verified 10/28/19 18:20) stomach issues gabapentin Adverse Reaction (Intermediate, Verified 10/28/19 18:20) HEADACHE Height 5 ft 8 in Weight 92.3 kg - Renal Dosing Renal Dosing: BUN 21 mg/dL (7-18) H 10/29/19 06:45 Creatinine 1.33 mg/dL (0.70-1.30) H 10/29/19 06:45 Medications needing adjustments: Intervened (Crcl ~47.2 mL/min using adjusted body weight; levofloxacin and zosyn doses adjusted based on indication/renal function) - Anticoagulation Anticoagulation: Hgb 15.4 g/dL (13.5-17.5) 10/29/19 06:45 Hct 46.8 % (40.0-50.0) 10/29/19 06:45 Plt Count 141 x1000/uL (130-400) 10/29/19 06:45 INR 1.0 (0.9-1.1) 10/28/19 17:30 Creatinine 1.33 mg/dL (0.70-1.30) H 10/29/19 06:45 DVT Prohphylaxis: Reviewed Medications: Enoxaparin - Opiate Usage Evaluate Pain Scale/Pains Meds: N/A - Relevant Labs Sodium 137 mmol/L (136-145) 10/29/19 06:45 Potassium 3.5 mmol/L (3.5-5.1) 10/29/19 06:45 Chloride 102 mmol/L (98-107) 10/29/19 06:45 Electrolytes, C-Reactive P, ESR: Reviewed (potassium replacement ordered) - DM Control DM Control: Glucose 98 mg/dL (74-106) 10/29/19 06:45 Insulin Dosing: N/A - Heart Failure/IA Heart Failure/IA: Troponin I < 0.05 ng/Ml (<0.06) 10/29/19 06:45 NT-Pro-B Natriuret Pep 4571 pg/mL (<300) H 10/28/19 17:30 EF%, DIANA's, B-Blockers, Diuretics: Reviewed (carvedilol, diltiazem, furosemide, losartan) - BP Control BP Control: Blood Pressure 113/60 If elevated: N/A - Qtc Review If Elevated: N/A (QTc 454) - IV to PO Switch IV Medications: N/A - Home Meds Home Med List reviewed: Reviewed (Multiple inhaled long acting beta2-agonists, steroids, and anticholinergics: trelegy, stiolto, fluticasone. Pt tried differen t inhalers (most recently trelegy) and has not like them/was not compliant. Anticholinergic meds can increase the ulcerogenic effect of potassium. Contraindicated per uptodate, consider anticholinergic effects of medication as well as alternative dosage forms of potassium (liquid or effervescent preparations).) Relevent Home Meds Not ordered & why?: acetaminophen, cholecalciferol, fluticasone/umeclidinium/vilanterol (has symbicort and spiriva ordered), furosemide, mupirocin, omega-3, tiotropium/olodaterol (has symbicort and spiriva ordered), vitamin E - Current meds Current Medication Order Review: Intervened (talked to provider about overlapping inhaler orders, levofloxacin dosing, zosyn dosing, and furosemide dose (was scheduled @2200)) - Comments Comments/Follow Ups: watch K+ level and renal function, if renal functon improves can adjust levofloxacin dosing Antibiotic Activity - Pharmacy Antibiotic Review Pharmacy Antibiotic Activity: Renal function adjustment (levofloxacin and zosyn adjusted based on indication and renal function)
[2019-10-29 15:10] LABS: Magnesium 2.1 mg/dL (1.8-2.4)
[2019-10-29] MEDS: Potassium Chloride 20 MEQ TABCR 40 MEQ PO (15:27)
[2019-10-29 16:12] LABS: BE 0.4 mmol/L (-3-3); HCO3 24 mmol/L (22-28); pCO2 32 mmHg (34-47); pH 7.48 (7.35-7.45); pO2 56 mmHg (83-108); sO2 90 % (94-98); tCO2 21 mmol/L (22-29)
[2019-10-29 16:15] LABS: FIO2L 10 L; Site Right Radial
[2019-10-29] MEDS: Latanoprost 0.005% 2.5 ML BTL OP (19:20)
[2019-10-29] MEDS: Rosuvastatin 10 MG TAB 20 MG PO (19:57)
[2019-10-29] MEDS: PIPERACILLIN/TAZO 4.5 GM in Normal Saline 100 ML IVPB (19:58)
[2019-10-29] MEDS: Enoxaparin 40 MG/0.4 ML SYR SC (21:56)
[2019-10-29 23:00] LABS: COVID-19 RT-PCR UVMMC Result Negative (Negative)
[2019-10-30] MEDS: Normal Saline Flush 10 ML SYR IVP ×2 (02:08→09:12)
[2019-10-30] MEDS: PIPERACILLIN/TAZO 4.5 GM in Normal Saline 100 ML IVPB ×2 (02:08→09:09)
[2019-10-30 04:08] VITALS: BP 141/60; PULSE 68; RESP 22; TEMP 36.7; O2SAT 89
[2019-10-30 06:31] LABS: Abs Immature Grans 0.04 k/cumm (0.0-0.09); Absolute Basophil Count 0.02 k/cumm (0.0-0.2); Absolute Eosinophil Count 0.01 k/cumm (0.0-0.7); Absolute Lymphocyte Count 1.66 k/cumm (1.2-3.4); Basophils % 0.2; Eosinophils % 0.1; HCT 43.8 % (40.0-50.0); HGB 14.4 g/dL (13.5-17.5); Immature Grans % 0.4 %; Lymphocytes % 14.6; Mean Corp. HGB Concentration 32.9 g/dL (32.0-36.0); Mean Corpuscular Volume 94.2 fL (80-95); Monocytes % 7.9; Neutrophils % 76.8; Platelet Count 131 x1000/uL (130-400); RBC 4.65 m/cumm (4.50-6.00); RBC Distribution Width 16.3 % (11.8-14.1); White Blood Cell Count 11.36 k/cumm (4.4-10.8)
[2019-10-30 06:36] LABS: Absolute Neutrophil Count 8.72 k/cumm (1.2-6.7)
[2019-10-30 06:49] LABS: Anion Gap 9.4 mmol/L (3-11); BUN 29 mg/dL (7-18); CO2 24.6 mmol/L (21.0-32.0); CREATININE 1.33 mg/dL (0.70-1.30); Calcium 8.6 mg/dL (8.5-10.1); Chloride 105 mmol/L (98-107); Estimated GFR 51.48 (mL/min/1.73m2); Glucose 110 mg/dL (74-106); NT-proBNP 3340 pg/mL (<300); Potassium 3.9 mmol/L (3.5-5.1); Sodium 139 mmol/L (136-145)
[2019-10-30 07:29] VITALS: BP 126/75; PULSE 67; RESP 20; TEMP 37.2; O2SAT 88
[2019-10-30] MEDS: Clopidogrel 75 MG TAB PO (09:10)
[2019-10-30] MEDS: predniSONE 20 MG TAB 40 MG PO (09:10)
[2019-10-30] MEDS: Furosemide 40 MG TAB PO (09:10)
[2019-10-30] MEDS: dilTIAZem CD 180 MG CAPCR PO (09:10)
[2019-10-30] MEDS: Potassium Chloride 20 MEQ TABCR PO (09:11)
[2019-10-30] MEDS: Allopurinol 300 MG TAB 150 MG PO (09:11)
[2019-10-30] MEDS: Aspirin E.C. 81 MG TABEC PO (09:11)
[2019-10-30] MEDS: Carvedilol 12.5 MG TAB PO ×2 (09:11→20:22)
[2019-10-30] MEDS: Losartan 50 MG TAB PO (09:11)
--- NOTE | 2019-10-30 09:44 | PGE_ITS ---
Date of Service Date of service: 10/30/19 Time of Service: 09:44 Assessment and Plan Assessment and plan (1) Acute and chronic respiratory failure with hypoxia: Status: Acute Assessment and plan: multifactorial. stable. continue treatment for pneumonia, heart failure and possible copd exacerbation as outlined below. (2) CHF (congestive heart failure): Status: Chronic Assessment and plan: BNP down to 3340 from 4500, will repeat in am. echo pending.. received IV lasix and will continue with daily lasix for now (takes q48h at home). continue close monitor of kidney functions and electrolytes. continue daily weights, I&O. continue ARB. (3) Pneumonia: Status: Acute Assessment and plan: day 3 of levaquin, discontinue zosyn. continue aggressive pulmonary toileting and education. continue respiratory inhalers. patient refuses trelegy. (4) Pulmonary hypertension: Status: Acute Assessment and plan: continues to receive lasix. will continue with daily lasix for now. continue close monitor of kidney functions and electrolytes. e cho completed and results pending. daily weights, I&O. (5) COPD (chronic obstructive pulmonary disease): Status: Acute Assessment and plan: will continue home dose steroids and inhalers. will start steroid burst in setting of wheezing, increased sputum production. refusing trelegy inhaler, will continue combivent, budesonide/formoterol, spiriva. respiratory therapy following closely. (6) CAD (coronary artery disease): Status: Acute Assessment and plan: stable with troponin and repeat troponin negative, no acute st segment changes. no reports of chest pain. will continue asa, beta yuliya, statin. (7) HTN (hypertension): Status: Acute Assessment and plan: blood pressures have been stable. (8) DVT prophylaxis: Status: Acute Assessment and plan: enoxaparin daily (9) Discharge planning issues: Status: Acute Assessment and plan: plan to discharge to home with appropriate services if needed. case management following. (10) COVID-19 ruled out by laboratory testing: Status: Acute Assessment and plan: results negative. Subjective Subjective Patient reports: tolerating liquids well, tolerating a regular diet, voiding w/o difficulty and afebrile Interval history since last seen: patient reports breathing improved some but with no exercise tolerance. He has increased cough with increase sputum production. no fevers or c/o chest pain. he is voiding well. he is eating and drinking without difficulty Exam Const General: cooperative, comfortable, no acute distress, in distress moderate (with activity) and respiratory, disheveled, frail appearing and ill appearing chronically Nutritional Appearance: overweight Orientation: alert, awake and oriented x3 HENMT Head: normal to inspection, normocephalic and atraumatic Mouth: oral mucosae normal (slightly dry, no exudates) Chest Chest: normal inspection of the chest Resp Effort & Inspection: able to speak in complete sentences, no audible wheezes and cough Quality of cough: productive Auscultation: wheezes expiratory wheezes, inspiratory wheezes and scattered wheezes Cardio Rate: regular rate Rhythm: regular rhythm GI Inspection: distended and obesity Palpation: soft and hernia (soft, reducible. ) Auscultation: normal bowel sounds General: other (medium yellow urine in urinal) Skin General skin exam: no rashes or lesions noted Neuro General: patient alert, patient awake, patient oriented x3 and moves all extremities Cognition: normal cognition Speech: speech normal Motor: muscle tone normal throughout Extrem General: normal to inspection and full ROM Psych Mental Status: mental status grossly normal Speech and Movement: speech and movement normal Attitude: cooperative Thought Process: normal Thought Content: normal Objective Objective Clinical Data: Abnormal lab results 10/29/19 10/30/19 10/30/19 Range/Units 16:05 06:20 06:20 WBC 11.36 H (4.4-10.8) k/cumm RDW 16.3 H (11.8-14.1) % Absolute Neutrophils 8.72 H (1.2-6.7) k/cumm Absolute Monocytes 0.90 H (0.11-0.7) k/cumm ABG pH 7.48 H (7.35-7.45) ABG pCO2 32 L (34-47) mmHg ABG pO2 56 L (83-108) mmHg ABG Total CO2 21 L (22-29) mmol/L ABG O2 Saturation 90 L (94-98) % BUN 29 H (7-18) mg/dL Creatinine 1.33 H (0.70-1.30) mg/dL Glucose 110 H (74-106) mg/dL NT-Pro-B Natriuret Pep 3340 H (<300) pg/mL Vital Signs Temperature 37.2 C 10/30/19 07:29 Temperature Source Temporal Artery Scan 10/30/19 07:29 Pulse 67 10/30/19 07:29 Pulse Rhythm Regular 10/30/19 04:10 Pulse 93 H 10/28/19 18:30 Respiratory Rate 20 10/30/19 07:29 Respiratory Effort Accessory Muscle Use 10/30/19 04:10 Respiratory Depth Normal 10/30/19 04:10 Respiratory Pattern Tachypnea 10/30/19 04:10 Blood Pressure 126/75 10/30/19 07:29 Blood Pressure Mean 79 10/28/19 18:28 Blood Pressure Position Sitting 10/28/19 18:04 Pulse Oximetry 88 L 10/30/19 07:29 Oxygen Delivery Method Nasal Cannula 10/30/19 07:29 Oxygen Flow Rate 10 10/30/19 07:29 Fraction of Inspired Oxygen (FIO2) 70 10/29/19 16:51 Pain Level 0 10/30/19 07:29 Comment 10/28/19 21:47 Intake & Output 10/29/19 10/29/19 10/30/19 11:59 23:59 11:59 Intake Total 460 / 820 360 / 820 100 / 100 Output Total 700 / 1475 775 / 1475 300 / 300 Balance -240 / -655 -415 / -655 -200 / -200 Intake: IV 220 / 380 160 / 380 100 / 100 Oral 240 / 440 200 / 440 Output: Urine 700 / 1475 775 / 1475 300 / 300 Other: Urine Color Pale Yellow Yellow Urine Appearance Clear Clear Clear Urine Odor Normal None Voiding Methods Urinal Urinal Urinal Laboratory Results WBC 11.36 k/cumm (4.4-10.8) H 10/30/19 06:20 RBC 4.65 m/cumm (4.50-6.00) 10/30/19 06:20 Hgb 14.4 g/dL (13.5-17.5) 10/30/19 06:20 Hct 43.8 % (40.0-50.0) 10/30/19 06:20 MCV 94.2 fL (80-95) 10/30/19 06:20 MCH 31.0 pg (27.0-33.0) 10/30/19 06:20 MCHC 32.9 g/dL (32.0-36.0) 10/30/19 06:20 RDW 16.3 % (11.8-14.1) H 10/30/19 06:20 Plt Count 131 x1000/uL (130-400) 10/30/19 06:20 MPV 11.0 fL (8.0-11.0) 10/30/19 06:20 Immature Gran % 0.4 % 10/30/19 06:20 Neutrophils % 76.8 10/30/19 06:20 Lymphocytes % 14.6 10/30/19 06:20 Monocytes % 7.9 10/30/19 06:20 Eosinophils % 0.1 10/30/19 06:20 Basophils % 0.2 10/30/19 06:20 Absolute Neutrophils 8.72 k/cumm (1.2-6.7) H 10/30/19 06:20 Absolute Lymphocytes 1.66 k/cumm (1.2-3.4) 10/30/19 06:20 Absolute Monocytes 0.90 k/cumm (0.11-0.7) H 10/30/19 06:20 Absolute Eosinophils 0.01 k/cumm (0.0-0.7) 10/30/19 06:20 Absolute Basophils 0.02 k/cumm (0.0-0.2) 10/30/19 06:20 PT 10.3 sec (9.3-11.0) 10/28/19 17:30 INR 1.0 (0.9-1.1) 10/28/19 17:30 D-Dimer 779 ng/mlFEU (<500) H 10/28/19 17:50 ABG Sample Site Right radial 10/29/19 16:05 ABG pH 7.48 (7.35-7.45) H 10/29/19 16:05 ABG pCO2 32 mmHg (34-47) L 10/29/19 16:05 ABG pO2 56 mmHg (83-108) L 10/29/19 16:05 ABG HCO3 24 mmol/L (22-28) 10/29/19 16:05 ABG Total CO2 21 mmol/L (22-29) L 10/29/19 16:05 ABG O2 Saturation 90 % (94-98) L 10/29/19 16:05 ABG Base Excess 0.4 mmol/L (-3-3) 10/29/19 16:05 VBG pH 7.44 (7.35-7.45) 10/28/19 17:50 VBG pCO2 35 mm/Hg (34-47) 10/28/19 17:50 VBG pO2 53 mm/Hg (28-44) H 10/28/19 17:50 VBG HCO3 24 mmol/L (22-28) 10/28/19 17:50 VBG Total CO2 20 mmol/L (22-29) L 10/28/19 17:50 VBG O2 Saturation 88 % (70-80) H 10/28/19 17:50 VBG Base Excess -0.2 mmol/L (-3-3) 10/28/19 17:50 Oxygen Liter Flow 10 L 10/29/19 16:05 Sodium 139 mmol/L (136-145) 10/30/19 06:20 Potassium 3.9 mmol/L (3.5-5.1) 10/30/19 06:20 Chloride 105 mmol/L (98-107) 10/30/19 06:20 Carbon Dioxide 24.6 mmol/L (21.0-32.0) 10/30/19 06:20 Anion Gap 9.4 mmol/L (3-11) 10/30/19 06:20 BUN 29 mg/dL (7-18) H 10/30/19 06:20 Creatinine 1.33 mg/dL (0.70-1.30) H 10/30/19 06:20 Estimated GFR/1.73 m2 51.48 (mL/min/1.73m2) 10/30/19 06:20 Glucose 110 mg/dL (74-106) H 10/30/19 06:20 Lactate 2.8 mmol/L (0.6-1.4) H* 10/28/19 17:50 Calcium 8.6 mg/dL (8.5-10.1) 10/30/19 06:20 Magnesium 2.1 mg/dL (1.8-2.4) 10/29/19 06:45 Total Bilirubin 0.8 mg/dL (0.2-1.0) 10/28/19 17:50 AST 27 U/L (15-37) 10/28/19 17:50 ALT 30 U/L (16-63) 10/28/19 17:50 Alkaline Phosphatase 73 U/L (46-116) 10/28/19 17:50 Troponin I < 0.05 ng/Ml (<0.06) 10/29/19 06:45 NT-Pro-B Natriuret Pep 3340 pg/mL (<300) H 10/30/19 06:20 Total Protein 7.6 g/dL (6.4-8.2) 10/28/19 17:50 Albumin 3.3 g/dL (3.4-5.0) L 10/28/19 17:50 Procalcitonin < 0.1 ng/mL 10/28/19 17:05 COVID-19 PCR Negative (Negative) 10/28/19 19:30 Nasopharyn COVID-19 PCR Not Applicable 10/28/19 19:30 Ref Test Perform Site [facility] 10/28/19 19:30
[2019-10-30] MEDS: Budesonide/Formoterol 160/4.5 6 GM 60 PUFF INH IH ×2 (10:48→20:23)
[2019-10-30] MEDS: Tiotropium Bromide-Respimat 10 PUFF INH 2 PUFF IH (10:49)
[2019-10-30 10:51] VITALS: O2SAT 93
[2019-10-30 11:01] VITALS: TEMP 31
[2019-10-30] MEDS: levoFLOXacin 500 MG, levoFLOXacin 250 MG 750 MG PO (11:33)
--- NOTE | 2019-10-30 14:12 | PDOC.CMPRO ---
- If Service Date Differs Date of service: 10/30/19 Time of Service: 14:12 Care Management Progress Note S/O: Lola remains acute at this time, he is on oxygen at home at baseline through [facility]. He continues to receive IV antibiotics and steroids. Per RT he did not qualify for Trilogy. He is being treated for CHF and continues to receive diuretics. Pharmacy planned to provide education to the patient today related to his inhalers. A: Lola is a 84 year old male admitted with pneumonia and CHF with a history of interstitial lung disease and chronic oxygen use at home 10 liters. P:Lola will discharge home when ready per MD. He will home health services new nursing and OT. He will have resumption of home O2 through [facility] and transport home via private vehicle with his , Ilsa.
--- NOTE | 2019-10-30 14:53 | W.NUTRFU ---
Date of service: 10/30/19 Time of Service: 14:53 Nutritional Follow up NOTE: 84 year old female admitted with PNA. PMH: CHF, pulmonary fibrosis with home ). BMI of 30 indicates obesity. Following regular diet with adequate intake. Not at risk for nutritional decline at this time. Time Spent in Nutritional Counseling and Treatment: 0
[2019-10-30 15:38] VITALS: BP 107/63; PULSE 67; RESP 20; TEMP 36.2; O2SAT 96
[2019-10-30] MEDS: Rosuvastatin 10 MG TAB 20 MG PO (20:22)
[2019-10-30] MEDS: Latanoprost 0.005% 2.5 ML BTL OP (20:22)
[2019-10-30] MEDS: Enoxaparin 40 MG/0.4 ML SYR SC (22:19)
[2019-10-30 23:34] VITALS: BP 135/73; PULSE 72; RESP 18; TEMP 36.7; O2SAT 96
[2019-10-31 06:25] LABS: Abs Immature Grans 0.02 k/cumm (0.0-0.09); Absolute Eosinophil Count 0.01 k/cumm (0.0-0.7); Absolute Lymphocyte Count 1.75 k/cumm (1.2-3.4); Absolute Monocyte Count 0.62 k/cumm (0.11-0.7); Eosinophils % 0.1; HCT 43.2 % (40.0-50.0); Immature Grans % 0.2 %; Lymphocytes % 16.4; Mean Corp. HGB Concentration 32.4 g/dL (32.0-36.0); Mean Corpuscular Hemoglobin 30.7 pg (27.0-33.0); Mean Corpuscular Volume 94.7 fL (80-95); Mean Platelet Volume 10.9 fL (8.0-11.0); Monocytes % 5.8; Neutrophils % 77.5; Platelet Count 148 x1000/uL (130-400); RBC 4.56 m/cumm (4.50-6.00)
[2019-10-31 06:43] LABS: Anion Gap 9.6 mmol/L (3-11); BUN 31 mg/dL (7-18); CO2 23.4 mmol/L (21.0-32.0); CREATININE 1.24 mg/dL (0.70-1.30); Calcium 8.8 mg/dL (8.5-10.1); Chloride 105 mmol/L (98-107); Estimated GFR 55.81 (mL/min/1.73m2); Glucose 100 mg/dL (74-106); Potassium 3.7 mmol/L (3.5-5.1); Sodium 138 mmol/L (136-145)
[2019-10-31 07:30] VITALS: BP 128/78; PULSE 70; RESP 17; TEMP 36.4; O2SAT 93
[2019-10-31] MEDS: Tiotropium Bromide-Respimat 10 PUFF INH 2 PUFF IH (08:01)
[2019-10-31] MEDS: Budesonide/Formoterol 160/4.5 6 GM 60 PUFF INH IH ×2 (08:02→20:20)
[2019-10-31] MEDS: dilTIAZem CD 180 MG CAPCR PO (08:12)
[2019-10-31] MEDS: Potassium Chloride 20 MEQ TABCR PO (08:12)
[2019-10-31] MEDS: Carvedilol 12.5 MG TAB PO ×2 (08:12→20:20)
[2019-10-31] MEDS: Aspirin E.C. 81 MG TABEC PO (08:12)
[2019-10-31] MEDS: Clopidogrel 75 MG TAB PO (08:12)
[2019-10-31] MEDS: predniSONE 20 MG TAB 40 MG PO (08:12)
[2019-10-31] MEDS: Furosemide 40 MG TAB PO (08:12)
[2019-10-31] MEDS: Losartan 50 MG TAB PO (08:12)
[2019-10-31] MEDS: Allopurinol 300 MG TAB 150 MG PO (08:13)
[2019-10-31] MEDS: guaiFENesin 600 MG TABCR PO ×2 (09:26→20:20)
--- NOTE | 2019-10-31 10:17 | PGE_ITS ---
Date of Service Date of service: 10/31/19 Time of Service: 10:17 Assessment and Plan Assessment and plan (1) Acute and chronic respiratory failure with hypoxia: Start date: 10/31/19 Start time: 10:23 Status: Acute Assessment and plan: multifactorial. stable. continue treatment for pneumonia, heart failure and possible copd exacerbation as outlined below. Trelegy today. Exercise oximetry with trelegy. PT eval, ICS and acapella. States cough with sputum. Obtain sputum sample. (2) CHF (congestive heart failure): Start date: 10/31/19 Start time: 10:26 Status: Chronic Assessment and plan: BNP down to 3340 from 4500, will repeat in am. echo with EF 45% right vent dilated and rt atrium dilated, mild aortic regurgitation, mild pulmonic regurg. IVP collapses. received IV lasix and will continue with daily lasix for now (takes q48h at home). continue close monitor of kidney functions and electrolytes. daily weights, I&O. continue ARB. (3) Pneumonia: Start date: 10/31/19 Start time: 10:35 Status: Acute Assessment and plan: day 4 of leveliza, improving. continue aggressive pulmonary toileting and education. continue respiratory inhalers. receiving trelegy today. Exercise oximetry with matilde PT eval. ICS. acapella (4) Pulmonary hypertension: Start date: 10/31/19 Start time: 10:54 Status: Acute Assessment and plan: continues to receive lasix. will continue with daily lasix for now. continue close monitor of kidney functions and electrolytes. echo completed and results pending. daily weights, I&O. (5) COPD (chronic obstructive pulmonary disease): Start date: 10/31/19 Start time: 10:54 Status: Acute Assessment and plan: will continue home dose steroids and inhalers. will start steroid burst in setting of wheezing, increased sputum production. refusing trelegy inhaler, will continue combivent, budesonide/formoterol, spiriva. respiratory therapy following closely. (6) CAD (coronary artery disease): Start date: 10/31/19 Start time: 10:54 Status: Acute Assessment and plan: stable with troponin and repeat troponin negative, no acute st segment changes. no reports of chest pain. will continue asa, beta yuliya, statin. (7) HTN (hypertension): Start date: 10/31/19 Start time: 10:54 Status: Acute Assessment and plan: blood pressures have been stable. (8) DVT prophylaxis: Start date: 10/31/19 Start time: 10:55 Status: Acute Assessment and plan: enoxaparin daily (9) Discharge planning issues: Start date: 10/31/19 Start time: 10:55 Status: Acute Assessment and plan: plan to discharge to home with appropriate services if needed. case management following. Above case discussed with Dr. Armijo who is in agreement. Subjective Subjective Patient reports: feels better Interval history since last seen: lying in bed. Feeling in good spirits. Wants to go home tomorrow. Agreeable to palliative care. Prompt care to see patient for trelegy today. Will obtain exercise oximetry after treley. Add ICS and acapella to pulmonary regimen. Exam Const General: cooperative, comfortable, no acute distress, in distress moderate (with activity) and respiratory, disheveled, frail appearing and ill appearing chronically Nutritional Appearance: overweight Orientation: alert, awake and oriented x3 HENMT Head: normal to inspection, normocephalic and atraumatic Mouth: oral mucosae normal (slightly dry, no exudates) Chest Chest: normal inspection of the chest Resp Effort & Inspection: able to speak in complete sentences, no audible wheezes and cough Quality of cough: productive Auscultation: rhonchi lower bilaterally Cardio Jugular venous pressure: no JVD Rate: regular rate Rhythm: regular rhythm GI Inspection: distended and obesity Palpation: soft and hernia (soft, reducible. ) Auscultation: normal bowel sounds General: other (medium yellow urine in urinal) Skin General skin exam: no rashes or lesions noted Neuro General: patient alert, patient awake, patient oriented x3 and moves all extremities Cognition: normal cognition Speech: speech normal Motor: muscle tone normal throughout Extrem General: normal to inspection and full ROM Psych Mental Status: mental status grossly normal Speech and Movement: speech and movement normal Attitude: cooperative Thought Process: normal Thought Content: normal Objective Objective Clinical Data: Abnormal lab results 10/31/19 10/31/19 Range/Units 06:20 06:20 RDW 16.0 H (11.8-14.1) % Absolute Neutrophils 8.30 H (1.2-6.7) k/cumm BUN 31 H (7-18) mg/dL Vital Signs Temperature 36.4 C L 10/31/19 07:30 Temperature Source Tympanic 10/31/19 07:30 Pulse 70 10/31/19 07:30 Pulse Rhythm Regular 10/31/19 03:05 Pulse 93 H 10/28/19 18:30 Respiratory Rate 17 10/31/19 07:30 Respiratory Effort Short of Breath 10/31/19 03:05 Respiratory Depth Normal 10/31/19 03:05 Respiratory Pattern Normal 10/31/19 03:05 Blood Pressure 128/78 10/31/19 07:30 Blood Pressure Mean 79 10/28/19 18:28 Blood Pressure Position Sitting 10/28/19 18:04 Pulse Oximetry 93 L 10/31/19 07:30 Oxygen Delivery Method Hi Flow Nasal Cannula 10/31/19 07:30 Oxygen Flow Rate 0 10/31/19 07:30 Fraction of Inspired Oxygen (FIO2) 70 10/30/19 11:01 Pain Level 0 10/31/19 07:30 Comment 10/28/19 21:47 Intake & Output 10/30/19 10/30/19 10/31/19 11:59 23:59 11:59 Intake Total 200 / 440 240 / 440 Output Total 525 / 925 400 / 925 Balance -325 / -485 -160 / -485 Intake: IV 200 / 200 Oral 240 / 240 Output: Urine 525 / 925 400 / 925 Other: Urine Color Light Taylor Yellow Urine Appearance Clear Clear Clear Urine Odor Strong Normal Stool Size Moderate Stool Characteristics Soft Formed Brown Voiding Methods Urinal Urinal Laboratory Results WBC 10.70 k/cumm (4.4-10.8) 10/31/19 06:20 RBC 4.56 m/cumm (4.50-6.00) 10/31/19 06:20 Hgb 14.0 g/dL (13.5-17.5) 10/31/19 06:20 Hct 43.2 % (40.0-50.0) 10/31/19 06:20 MCV 94.7 fL (80-95) 10/31/19 06:20 MCH 30.7 pg (27.0-33.0) 10/31/19 06:20 MCHC 32.4 g/dL (32.0-36.0) 10/31/19 06:20 RDW 16.0 % (11.8-14.1) H 10/31/19 06:20 Plt Count 148 x1000/uL (130-400) 10/31/19 06:20 MPV 10.9 fL (8.0-11.0) 10/31/19 06:20 Immature Gran % 0.2 % 10/31/19 06:20 Neutrophils % 77.5 10/31/19 06:20 Lymphocytes % 16.4 10/31/19 06:20 Monocytes % 5.8 10/31/19 06:20 Eosinophils % 0.1 10/31/19 06:20 Basophils % 0.0 10/31/19 06:20 Absolute Neutrophils 8.30 k/cumm (1.2-6.7) H 10/31/19 06:20 Absolute Lymphocytes 1.75 k/cumm (1.2-3.4) 10/31/19 06:20 Absolute Monocytes 0.62 k/cumm (0.11-0.7) 10/31/19 06:20 Absolute Eosinophils 0.01 k/cumm (0.0-0.7) 10/31/19 06:20 Absolute Basophils 0.00 k/cumm (0.0-0.2) 10/31/19 06:20 PT 10.3 sec (9.3-11.0) 10/28/19 17:30 INR 1.0 (0.9-1.1) 10/28/19 17:30 D-Dimer 779 ng/mlFEU (<500) H 10/28/19 17:50 ABG Sample Site Right radial 10/29/19 16:05 ABG pH 7.48 (7.35-7.45) H 10/29/19 16:05 ABG pCO2 32 mmHg (34-47) L 10/29/19 16:05 ABG pO2 56 mmHg (83-108) L 10/29/19 16:05 ABG HCO3 24 mmol/L (22-28) 10/29/19 16:05 ABG Total CO2 21 mmol/L (22-29) L 10/29/19 16:05 ABG O2 Saturation 90 % (94-98) L 10/29/19 16:05 ABG Base Excess 0.4 mmol/L (-3-3) 10/29/19 16:05 VBG pH 7.44 (7.35-7.45) 10/28/19 17:50 VBG pCO2 35 mm/Hg (34-47) 10/28/19 17:50 VBG pO2 53 mm/Hg (28-44) H 10/28/19 17:50 VBG HCO3 24 mmol/L (22-28) 10/28/19 17:50 VBG Total CO2 20 mmol/L (22-29) L 10/28/19 17:50 VBG O2 Saturation 88 % (70-80) H 10/28/19 17:50 VBG Base Excess -0.2 mmol/L (-3-3) 10/28/19 17:50 Oxygen Liter Flow 10 L 10/29/19 16:05 Sodium 138 mmol/L (136-145) 10/31/19 06:20 Potassium 3.7 mmol/L (3.5-5.1) 10/31/19 06:20 Chloride 105 mmol/L (98-107) 10/31/19 06:20 Carbon Dioxide 23.4 mmol/L (21.0-32.0) 10/31/19 06:20 Anion Gap 9.6 mmol/L (3-11) 10/31/19 06:20 BUN 31 mg/dL (7-18) H 10/31/19 06:20 Creatinine 1.24 mg/dL (0.70-1.30) 10/31/19 06:20 Estimated GFR/1.73 m2 55.81 (mL/min/1.73m2) 10/31/19 06:20 Glucose 100 mg/dL (74-106) 10/31/19 06:20 Lactate 2.8 mmol/L (0.6-1.4) H* 10/28/19 17:50 Calcium 8.8 mg/dL (8.5-10.1) 10/31/19 06:20 Magnesium 2.1 mg/dL (1.8-2.4) 10/29/19 06:45 Total Bilirubin 0.8 mg/dL (0.2-1.0) 10/28/19 17:50 AST 27 U/L (15-37) 10/28/19 17:50 ALT 30 U/L (16-63) 10/28/19 17:50 Alkaline Phosphatase 73 U/L (46-116) 10/28/19 17:50 Troponin I < 0.05 ng/Ml (<0.06) 10/29/19 06:45 NT-Pro-B Natriuret Pep 3340 pg/mL (<300) H 10/30/19 06:20 Total Protein 7.6 g/dL (6.4-8.2) 10/28/19 17:50 Albumin 3.3 g/dL (3.4-5.0) L 10/28/19 17:50 Procalcitonin < 0.1 ng/mL 10/28/19 17:05 COVID-19 PCR Negative (Negative) 10/28/19 19:30 Nasopharyn COVID-19 PCR Not Applicable 10/28/19 19:30 Ref Test Perform Site [facility] lab 10/28/19 19:30
--- NOTE | 2019-10-31 11:40 | PDOC.CMPRO ---
Care Management Progress Note S/O: Lola remains acute at this time, closely monitored for CHF and continues to receive diuretics, IV antibiotics and steroids. Per RT, Prompt Care will be delivering the Trilogy Unit today and providing patient education. Palliative Consult coordinated for 0 today with Zahida Egan NP. CM continues to follow. A: Lola is a 84 year old male admitted with pneumonia and CHF with a history of interstitial lung disease and chronic oxygen use at home, baseline 10 liters. P: Lola will discharge home when ready per MD. He will follow up with his PCP and Palliative Care as well as his plan of care as prescribed. Anticipate new [facility] orders for RN/OT. He will resume home O2 through [facility], and return home with a new Trilogy unit as well. Lola will transport home via private vehicle with his , Ilsa.
--- NOTE | 2019-10-31 12:54 | W.PALLCONSUL ---
Date of service: 10/31/19 Time of Service: 12:54 History of Present Illness Narrative: Lola Edmond is a very pleasant 84 year old man with a past medical history significant for AAA, CAD with hx of CABG and cardiac catheterization, s/p pacemaker/defibrillator placement, former tobacco abuse, COPD, interstitial lung disease, agent orange exposure, hyperlipidemia, HTN, gout, PAD, spinal stenosis and congestive heart failure. He is currently hospitalized and being treated for pneumonia, COPD exacerbation and CHF exacerbation. The hospitalist group placed a palliative care consult to discuss goals of care. He has been seen by Dr. Bañuelos for palliative in the past, last in 05/2019. Mr. Edmond was on hospice for about 3 weeks, <6 months ago, at that time, he was taking morphine and experienced hallucinations. At that point he decided he didn't want to be on hospice. Previously (in the ) when he had CABG, he was on Morphine and experienced terribly unpleasant dreams, that he was going to kill someone. He had the same experience with codeine. He is currently interested in home health. He needs more help at home for himself and his , Ilsa. He has a hard time bathing himself at home. He states he does not want to go back on hospice. He reports feeling better since the time of admission. His SOB is improving. His SOB at the time of his presentation was causing anxiety. He is still coughing, producing white sputum. Occasional wheezing. Feels his quality of life has severely worsened over the last year. Has only left the house about 2 times and that was for doctor visits. He is now on oxygen at 10 liters continuously at home, his oxygen saturations goes down to 60s when he gets up to go to the BR. When he was seen in 05/2019, he was on 6 lpm. He reports that he was always very active throughout his life. His breathing hinders his activities now. He spends the day in his recliner, talking to his dog, Jose Antonio, he is a jose antonio marcelle terrier. He dozes off during the day, sleeps 20-30% of the day. Cannot really get up and do anything during the day. He only leaves his recliner to go to the bathroom. He is unable to do hobbies that he enjoys like working on his hot aaron. He has wheelchair for when he goes out. Does not use a walker in house. He reports that he sleeps well at night. His appetite has been good. No nausea, vomiting, diarrhea or constipation at this time. He enjoys a couple of bud light beers at night. Has been to Ilsa for 25 years. Has a happy marriage and life. He was for 33 years prior, not especially happy marriage, he spent a lot of it [place] to be away. He is a [place] vet, he is 100% service connected. He has recently been working with them. He dropped out of school after 8th grade. 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 He then went on to get his GED and took college classes in the . He previously stated during a Palliative visit with Dr. Bañuelos, that his goal was to write a book. He states that he has given up on the goal of writing a book at this time. He might consider recording himself. He loves to read but he has glaucoma in the right eye and has a lot of trouble reading now. He is thinking about listening to audio books. His goal is to stay at home. He wants to at home. He plans to do direct cremation when he passes, he has it all set up already. He has a twin sister, Vinicio. He had 4 sisters, 3 brothers. Vinicio is his only living sibling. She lives in [place], [place]. During his visit in May,, he told Dr. Bañuelos that he thought he was dying. He states that he felt the same way when he presented to the hospital this time. He has improved since admission to the hospital. He does not necessarily feel like he is dying today. He has had such bad reactions to narcotics, he states that when he dies, it will be natural, he does not want medications, he fears that he will have another bad reaction. Assessment and Plan Assessment and plan (1) CHF (congestive heart failure): Status: Chronic (2) Pneumonia: Status: Acute (3) Generalized weakness: Status: Acute (4) DNI (do not intubate): Status: Acute (5) DNR (do not resuscitate): Status: Acute (6) Oxygen dependent: Status: Chronic (7) COPD (chronic obstructive pulmonary disease): Status: Acute (8) CAD (coronary artery disease): Status: Acute (9) Palliative care patient: Status: Acute Assessment and plan: Has been seen by Dr. Bañuelos in the past. Was on Hospice briefly, decided to get off hospice after having hallucinations on Morphine, no desire to get back on hospice at this time, although he would qualify. PPS score 40%. He will remain in the hospital for treatment of PNA, CHF and COPD exacerbation. He was negative for COVID-19. He appears to be doing well on the Trilogy, hopefully he can be discharged home with it. He would benefit from Home health services at the time of discharge. Palliative will continue to follow him after his discharge home. F/u in 1-2 months. Review of Systems All systems reviewed & are unremarkable except as noted in HPI and below PFSH Medical History Acute and chronic respiratory failure with hypoxia (Acute) Adverse drug effect (Chronic) hallucinations on morphine Agent orange exposure (Chronic) Black stool (Acute) probable digested blood from nasopharynx (Hx blood clots, epistaxis) CAD (coronary artery disease) Central obesity (Acute) Chronic dyspnea (Acute) Chronic sinusitis (Acute) COPD (chronic obstructive pulmonary disease) DNI (do not intubate) (Acute) DNR (do not resuscitate) (Acute) Encounter for hospice care discussion (Acute) Essential hypertension Generalized weakness (Acute) High cholesterol ILD (interstitial lung disease) Palliative care patient (Acute) Pulmonary hypertension (Chronic) Surgical History Carotid endarterectomy Cholecystectomy (10/24/17) 11/13/17 laproscopic cholesystectomy with common duct exploration Dr. Aristides Medina, [place] [facility] [place], cholydocholithiasis cholecystisis s/p ERCP with percutaneoul cholecystostomy tube placement Cholecystectomy (11/13/17) 11/13/17 laproscopic cholesystectomy with common duct exploration Dr. Aristides Medina, 10[place]24/17 [facility] [place], cholydocholithiasis cholecystisis s/p ERCP with percutaneoul cholecystostomy tube placement Coronary Artery Bypass Gaft (CABG) (06/12/95) from old records Pacemaker (12/20/11) 3rd PM: [facility] PM/Defib (2001). Family History Mother , age 70 from pancreatitis Pancreatitis Father , age 59 from myocardial infarction Heart disease Brother , age 72 from complications of diabetes Diabetes Hypertension Hyperlipidemia Brother , age 60 of unknown cause No problems noted. Sister , in her 60s from diabetes Diabetes Sister , in her late 60s/early 70s from diabetes Diabetes Sister No problems noted. Sister , September 2018 Heart disease Son Chronic post-traumatic stress disorder (PTSD) after combat Social History Smoking/Tobacco Use Status: Former Tobacco Use Alcohol Intake: current Alcohol Intake frequency: a few times a month Drug use: Rarely Substance use type: marijuana Details: recently tried marijuana cookie to see if it would help with back pain; did not like side effects Caregiver/Support person: Yes ( Ilsa) Household members: spouse Housing: house Number of Children: 1 number of grandchildren: 2 Communication Needs: Hard of Hearing and Corrective Lenses Education Level: high school Details: dropped out but got his GED, has taken college courses Do you need help understanding health information?: Often 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, 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 Pets and animals: Yes What is your relationship status?: How often do you talk on the phone with friends or family?: once per week How often do you get together with friends or relatives?: once per week Panel score (0-1 are the most socially isolated patients): 1 What type of physical activity do you participate in: none and sedentary lifestyle Duration: < 15 minutes/day Padmini/Anabaptist: None Special padmini needs: No Agree to transfusion: Yes Seatbelt use: sometimes Helmet use: Yes Drive intox or ride w/intox cattle driver: No Working smoke detector in home: Yes Carbon monox detector in home: Yes Firearms in home: Yes Do you feel safe at home: Yes Do you feel safe in your relationship?: Yes Additional Social history: Ilsa worried about Collyn. He is needing more help. He is discouraged, breathless, exhausted. She sees his breathing is worse. Hates any mind-altering drugs; I need to be in control. Ilsa needs help caring for him. trying to honor his wishes. Exam Narrative Exam Narrative: General: elderly man, appears stated age, laying in bed with trilogy on, breathing comfortably, speaking in complete sentences without respiratory distress. Alert and oriented. Pleasant and talkative. HEENT: normocephalic, atraumatic, pupils equal and round, mucous membranes moist. Neck: supple. Cardiovascular: HR regular, +click, nontachycardic. Respiratory: Respirations appear unlabored with Trilogy on. Rales noted in bilateral bases, few scattered wheezes noted. GI: +BS x4 quadrants, abdomen round, soft, nontender on palpation. Extremities: fingertips with clubbing and cyanosis. No lower extremity edema, lacking hair on lower extremities. Pedal pulses faint bilaterally. Results Last Vital Signs Temp 36.4 C L 10/31/19 07:30 Pulse 70 10/31/19 07:30 Resp 17 10/31/19 07:30 BP 128/78 10/31/19 07:30 Pulse Ox 93 L 10/31/19 07:30 Labs Result diagrams: 10/31/19 06:20 10/31/19 06:20 Labs: Laboratory Results - last 24 hr 10/31/19 10/31/19 06:20 06:20 WBC 10.70 RBC 4.56 Hgb 14.0 Hct 43.2 MCV 94.7 MCH 30.7 MCHC 32.4 RDW 16.0 H Plt Count 148 MPV 10.9 Immature Gran % 0.2 Neutrophils % 77.5 Lymphocytes % 16.4 Monocytes % 5.8 Eosinophils % 0.1 Basophils % 0.0 Absolute Neutrophils 8.30 H Absolute Lymphocytes 1.75 Absolute Monocytes 0.62 Absolute Eosinophils 0.01 Absolute Basophils 0.00 Sodium 138 Potassium 3.7 Chloride 105 Carbon Dioxide 23.4 Anion Gap 9.6 BUN 31 H Creatinine 1.24 Estimated GFR/1.73 m2 55.81 Glucose 100 Calcium 8.8
[2019-10-31 15:05] VITALS: BP 146/73; PULSE 70; RESP 20; TEMP 36.6; O2SAT 92
[2019-10-31 15:48] VITALS: PULSE 74; PULSE 84; RESP 18; RESP 24; O2SAT 78; O2SAT 88
[2019-10-31 15:58] VITALS: TEMP 31
[2019-10-31 19:00] VITALS: BP 131/66; PULSE 78; RESP 21; TEMP 36.3; O2SAT 95
[2019-10-31] MEDS: Rosuvastatin 10 MG TAB 20 MG PO (20:20)
[2019-10-31] MEDS: Latanoprost 0.005% 2.5 ML BTL OP (20:20)
[2019-10-31] MEDS: Enoxaparin 40 MG/0.4 ML SYR SC (21:26)
[2019-11-01] VITALS (7 sets, daily range): BP systolic 110–143; BP diastolic 63–86; PULSE 62–81; RESP 1–20; TEMP 31–36.7; O2SAT 88–95
[2019-11-01 06:25] LABS: Abs Immature Grans 0.01 k/cumm (0.0-0.09); Absolute Basophil Count 0.01 k/cumm (0.0-0.2); Absolute Eosinophil Count 0.01 k/cumm (0.0-0.7); Absolute Lymphocyte Count 1.86 k/cumm (1.2-3.4); Absolute Monocyte Count 0.79 k/cumm (0.11-0.7); Absolute Neutrophil Count 6.46 k/cumm (1.2-6.7); Basophils % 0.1; Eosinophils % 0.1; HCT 43.9 % (40.0-50.0); HGB 14.5 g/dL (13.5-17.5); Immature Grans % 0.1 %; Lymphocytes % 20.4; Mean Corpuscular Hemoglobin 31.2 pg (27.0-33.0); Mean Corpuscular Volume 94.4 fL (80-95); Mean Platelet Volume 10.9 fL (8.0-11.0); Monocytes % 8.6; Neutrophils % 70.7; Platelet Count 150 x1000/uL (130-400); RBC 4.65 m/cumm (4.50-6.00); White Blood Cell Count 9.14 k/cumm (4.4-10.8)
[2019-11-01 07:00] LABS: Anion Gap 9.3 mmol/L (3-11); BUN 33 mg/dL (7-18); CO2 23.7 mmol/L (21.0-32.0); CREATININE 1.08 mg/dL (0.70-1.30); Chloride 106 mmol/L (98-107); Glucose 92 mg/dL (74-106); Magnesium 2.2 mg/dL (1.8-2.4); NT-proBNP 4252 pg/mL (<300); Potassium 3.7 mmol/L (3.5-5.1); Sodium 139 mmol/L (136-145)
[2019-11-01] MEDS: Tiotropium Bromide-Respimat 10 PUFF INH 2 PUFF IH (08:23)
[2019-11-01] MEDS: Budesonide/Formoterol 160/4.5 6 GM 60 PUFF INH IH ×2 (08:23→19:53)
[2019-11-01] MEDS: Potassium Chloride 20 MEQ TABCR PO (08:46)
[2019-11-01] MEDS: Allopurinol 300 MG TAB 150 MG PO (08:46)
[2019-11-01] MEDS: Losartan 50 MG TAB PO (08:46)
[2019-11-01] MEDS: dilTIAZem CD 180 MG CAPCR PO (08:46)
[2019-11-01] MEDS: Carvedilol 12.5 MG TAB PO ×2 (08:46→19:53)
[2019-11-01] MEDS: Furosemide 40 MG TAB PO (08:46)
[2019-11-01] MEDS: Aspirin E.C. 81 MG TABEC PO (08:46)
[2019-11-01] MEDS: guaiFENesin 600 MG TABCR PO ×2 (08:47→19:53)
[2019-11-01] MEDS: Clopidogrel 75 MG TAB PO (08:47)
[2019-11-01] MEDS: predniSONE 20 MG TAB 40 MG PO (08:47)
--- NOTE | 2019-11-01 09:05 | PT.INIE ---
Date of service: 11/01/19 Time of Service: 09:05 PT Notes Visit Reasons: Pneumonia Physical Therapy Inpatient Initial Evaluation Date: 11/01/2019 Referring Doctor: Rosalva Black NP PT Orders: PT CONSULT: Limited ability Precautions: Fall. Standard. Activity as tolerated. On 10 L of oxygen per minute continuously via NC. Patient Profile/Admitting Diagnosis: Gerson is an 84-year-old male who presented to the ED on 10/28/2019 with chief complaints of generalized body malaise, shortness of breath, and cough which have increasingly worsened over the course of 2 weeks prior to ED presentation. Patient is diagnosed with acute on chronic respiratory failure, congestive heart failure EF of 40 to 45%, pneumonia, pulmonary hypertension, COPD exacerbation, and coronary artery disease. PMHX: Medical History Acute and chronic respiratory failure with hypoxia (Acute) Adverse drug effect (Chronic) hallucinations on morphine Agent orange exposure (Chronic) Black stool (Acute) probable digested blood from nasopharynx (Hx blood clots, epistaxis) CAD (coronary artery disease) Central obesity (Acute) Chronic dyspnea (Acute) Chronic sinusitis (Acute) COPD (chronic obstructive pulmonary disease) DNI (do not intubate) (Acute) DNR (do not resuscitate) (Acute) Encounter for hospice care discussion (Acute) Essential hypertension Generalized weakness (Acute) High cholesterol ILD (interstitial lung disease) Palliative care patient (Acute) Pulmonary hypertension (Chronic) Surgical History Carotid endarterectomy 11/13/17 laproscopic cholesystectomy with common duct exploration Dr. Aristides Medina, [place] [facility] [place], cholydocholithiasis cholecystisis s/p ERCP with percutaneoul cholecystostomy tube placement Cholecystectomy (11/13/17) 11/13/17 laproscopic cholesystectomy with common duct exploration Dr. Aristides Medina, [place]24[place] [facility] [place], cholydocholithiasis cholecystisis s/p ERCP with percutaneoul cholecystostomy tube placement Coronary Artery Bypass Gaft (CABG) (06/12/95) from old records Pacemaker (12/20/11) 3rd PM: [facility] PM/Defib (2001). Social History/Home Situation: Patient lives with Ilsa in a private home with a ramp to enter. He is independent with operation of motorized wheelchair for all outdoor ambulation but has not used any assistive ambulatory device for indoors. His provides all the assistance he needs. At baseline, he requires oxygen supplementation on 10 L/min via NC at home. Equipment Owned/DME: Motorized wheelchair, tub bench, hand-held shower, ramp to enter, home oxygen Subjective: Gerson states that there is nothing wrong with him except for he could not breathe. He can move okay but that his oxygen limits his ability to sustain an activity. He reports that his has been very supportive of him. He mentioned about the possibility of home health support as his is not getting any younger. He states that care management is aware of this. Objective: General Observation: High flow oxygen device on upon arrival of PT. Bilateral TEDs on both legs. Observable shortness of breath with activity. Mental Status: Alert and oriented x4 Pain: None reported Vital Signs: Oxygen saturation lowest at 73% and highest at 91% throughout PT session ROM: Right Upper Extremity: Shoulder Flexion WFL. Shoulder abduction WFL. Elbow flexion WFL. Wrist flexion WFL. Opening and closing of hand WFL. Left Upper Extremity: Shoulder Flexion WFL. Shoulder abduction WFL. Elbow flexion WFL. Wrist flexion WFL. Opening and closing of hand WFL. Right Lower Extremity: Hip flexion WFL. Hip abduction WFL. Knee flexion WFL. Ankle dorsiflexion WFL. Ankle plantarflexion WFL. Left Lower Extremity: Hip flexion WFL. Hip abduction WFL. Knee flexion WFL. Ankle dorsiflexion WFL. Ankle plantarflexion WFL. Strength: Right Upper Extremity: Shoulder flexors 4/5. Shoulder abductors 4/5. Elbow flexors 5/5. Elbow extensors 5/5. Adapted Physical Education Teacher strong. Left Upper Extremity: Shoulder flexors 4/5. Shoulder abductors 4/5. Elbow flexors 5/5. Elbow extensors 5/5. Adapted Physical Education Teacher strong. Right Lower Extremity: Hip flexors 4/5. Hip abductors 5/5. Knee flexors 5/5. Knee extensors 4/5. Ankle dorsiflexors 5/5. Ankle plantarflexors 5/5. Left Lower Extremity:Hip flexors 4/5. Hip abductors 5/5. Knee flexors 5/5. Knee extensors 4/5. Ankle dorsiflexors 5/5. Ankle plantarflexors 5/5. Sensation: Intact as to pain and pressure on bilateral lower extremities. Bed Mobility/Transfers: Supine to sit supervision able to use BUE for support,SOB evident after activity with desaturation to 73% on 10 L of oxygen and re-saturation to 88% after at least 5 minutes with [place] Dyspnea Scale of 2/10 (slight breathlessness) Sit to supine supervision able to use BUE for support, with [place] Dyspnea Scale of 2/10 (slight breathlessness) Sit to stand supervision using BUE for support, agreed to using front wheeled walker, with [place] Dyspnea Scale of 2/10 (slight breathlessness) Stand to sit supervision using BUE for support, agreed to using front wheeled walker, with [place] Dyspnea Scale of 2/10 (slight breathlessness) Bed to chair supervision using BUE for support, agreed to using front wheeled walker, with [place] Dyspnea Scale of 2/10 (slight breathlessness) Chair to bed supervision using BUE for support, agreed to using front wheeled walker, with [place] Dyspnea Scale of 2/10 (slight breathlessness) Gait: Patient tolerated level surface ambulation using front wheeled walker with full weight bearing requiring 3 standing rests as patient desaturated to below 80% on 10 L of oxygen per minute with modified [place]onna dyspnea scale at 3/10 (moderate breathlessness). [place] decreased. Swing through gait pattern. Balance: Static Sitting: Normal Dynamic Sitting: Normal Static Standing: Good Dynamic Standing: Fair Special Tests: Mobility Limitations Standardized Measure [facility]-PAC 6 clicks Basic Mobility Inpatient Short Form: Raw Score: 16 CMS Score: 54% deficit Informed Consent/Education: Patient instructed in purpose of PT consult and plan of care. Assessment: Lola demonstrates decreased activity tolerance due to CHF and COPD exacerbation compounded by above diagnoses. Patient is refusing to use any assistive ambulatory devices as patient stresses that he can manage without them despite explanation given regarding the amount of assistance that a front wheeled walker or a cane can contribute to conserve his energy. He also stressed that he does not need any home health PT and OT services as he and his are all set with their home set up at this time. He did voice that what they would need is a home health aide who can regularly come in to provide respite and relief for his . Patient presents with clinical signs and symptoms consistent with current/admitting diagnoses that have resulted to mobility limitations, gait instability, generalized weakness, and impairment of motor control as demonstrated by the following impairment level findings: 1. Impaired activity tolerance 2. Dyspnea on exertion 3. Generalized weakness to BUE and LE muscles Impairments are contributing to the following functional limitations: 1. Difficulty to maintain good saturation levels without an assistive device 2. Increase completion time for mobility ADL performance 3. Increased fall risk Patient is assessed as a 70612 moderate complexity based on the following: History: Patient is an 84-year-old male with impairment level findings, functional limitations, and past medical history as indicated above Examination: Demonstrable impairment in strength, balance, and range of motion with underlying impairments and functional limitations as documented above Presentation:Evolving Decision Makin moderate complexity Goals: Goals X1 week 1. Supine-Sit independent 2. Sit-Supine independent 3. Sit-Stand independent 4. Stand-Sit independent 5. Bed-Chair independent 6. Chair-Bed independent 7. Independent gait on level surface with use of least restrictive device for at least 100 feet without report of pain nor dyspnea 8. Independent with home exercise program 9. Good static and dynamic standing balance/tolerance Plan of Care/Treatment Plan: 1-2x/day, 7 days/week x 1 week. Initiate Physical Therapy intervention for strengthening, bed mobility, transfers, gait, stairs, balance training, use of assistive device. DISCHARGE RECOMMENDATIONS: Patient will benefit from home health PT services in order to progress mobility level using least restrictive assistive ambulatory device, assess home safety, identify additional equipment needs, and establish a functional maintenance program that will increase ability of patient to remain at home. TREATMENT CODE/TIME: 37713 x 25 minutes, 99797 x 25 minutes beginning at 9:05 AM. Thank you very much for this referral. Ivy Calvert PT, DPT, CLT [facility] [place], [place]
[2019-11-01] MEDS: levoFLOXacin 500 MG, levoFLOXacin 250 MG 750 MG PO (10:35)
--- NOTE | 2019-11-01 11:23 | CHAPLAIN ---
Lola was resting in bed when I visited. 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 He said he saw a lot of the world in while in the service, but not like a tourist. Lola said he believes he is dying and he wants to at home. He explained that his heart is not good and his lungs are shot and he has Agent [place] on top off all that. He has been happily to his Ilsa for 22 years. He was previously for 33 years, but it was not a happy marriage. Lola has already made plans to be cremated and buried in the [facility] cemetery. Lola believed his bailey wasn't what it should be because he doesn't attend amish, but did agree that what's most important is developing a relationship with God and maintaining that, which he believes he's done. He said that in [place], during the war, in a [place], there are no atheists. He is grateful for his good relationship with his , and for his dog, Jose Antonio, a Jose Antonio Aram Terrier. his siblings, three sisters and a few brothers have all , except his twin sister, Olinda. He said he is at peace with his life, and his happy. He was seen by Dr. Bañuelos for Palliative Care in May and then again by Zahida Egan, According to Zahida's notes, Lola was on hospice before, and came off after a bad reaction to morphine, and is not interested in being on hospice again.
--- NOTE | 2019-11-01 11:32 | PGE_ITS ---
Date of Service Date of service: 11/01/19 Time of Service: 11:33 Assessment and Plan Assessment and plan (1) Acute and chronic respiratory failure with hypoxia: Start date: 11/01/19 Start time: 11:44 Status: Acute Assessment and plan: multifactorial. stable. continue treatment for pneumonia, heart failure and possible copd exacerbation as outlined below. Trelegy today. Exercise oximetry done with RT reveals 10 l HFNC SPO2 88 and a HR 76, after ambulation of 50 feet, SPO2 dropped to 74%. Pt placed on 15l/min with little to no improvement placed back on RA and still no improvment until placed on optiflow HFNC with three mins improvement to 88%. PT eval, ICS and acapella. States cough with sputum. Obtain sputum sample. Started on ativan oral concentrate for dyspnea TID. Palliative following (2) CHF (congestive heart failure): Start date: 11/01/19 Start time: 11:46 Status: Chronic Assessment and plan: BNP down to 3340 from 4500, will repeat in am. echo with EF 45% right vent dilated and rt atrium dilated, mild aortic regurgitation, mild pulmonic regurg. IVP collapses. received IV lasix and will continue with daily lasix for now (takes q48h at home). continue close monitor of kidney functions and electrolytes. daily weights, I&O. continue ARB. (3) Pneumonia: Start date: 11/01/19 Start time: 11:46 Status: Acute Assessment and plan: day 5 of levaquin, improving LS. continue aggressive pulmonary toileting and education. continue respiratory inhalers. received trilogy and refused to wear it after 2 hours stating it hurt his face. Exercise oximetry with matilde, PT eval. ICS. acapella (4) Pulmonary hypertension: Start date: 11/01/19 Start time: 11:47 Status: Acute Assessment and plan: continues to receive lasix. will continue with daily lasix for now. continue close monitor of kidney functions and electrolytes. echo completed and results pending. daily weights, I&O. (5) COPD (chronic obstructive pulmonary disease): Start date: 11/01/19 Start time: 11:47 Status: Acute Assessment and plan: will continue home dose steroids and inhalers. will start steroid burst in setting of wheezing, increased sputum production. refusing trelegy inhaler, will continue combivent, budesonide/formoterol, spiriva. respiratory therapy following closely. (6) CAD (coronary artery disease): Start date: 11/01/19 Start time: 11:47 Status: Acute Assessment and plan: stable with troponin and repeat troponin negative, no acute st segment changes. no reports of chest pain. will continue asa, beta yuliya, statin. (7) HTN (hypertension): Start date: 11/01/19 Start time: 11:48 Status: Acute Assessment and plan: blood pressures have been stable. (8) DVT prophylaxis: Start date: 11/01/19 Start time: 11:48 Status: Acute Assessment and plan: enoxaparin daily (9) Discharge planning issues: Start date: 11/01/19 Start time: 11:48 Status: Acute Assessment and plan: plan to discharge to home with appropriate services if needed. case management following. Above case discussed with Dr. Armijo who is in agreement. Subjective Subjective Patient reports: other Interval history since last seen: Mr. Edmond knows his health is declining. He understands that he may not live much longer. At this time he wants to go home and at home but he is afraid of hospice. I have asked palliative to have a conversation with him regarding his fears and wishes. He wants to go home but is not able to keep saturation above 70 % with ambulation and does not recover quickly. He refuses trilogy stating he does not like it, nothing feels right on his face. He would like a high frank oxygen system for home, CM and RT is looking into this. He has dyspnea with the slightest movements. He denies CP. Voiding without difficulty. He states through entire evaluation that he wants to go home and he knows he is getting worse. Exam Const General: cooperative, comfortable, no acute distress, in distress moderate (with activity) and respiratory, disheveled, frail appearing and ill appearing chronically Nutritional Appearance: overweight Orientation: alert, awake and oriented x3 HENMT Head: normal to inspection, normocephalic and atraumatic Mouth: oral mucosae normal (slightly dry, no exudates) Chest Chest: normal inspection of the chest Resp Effort & Inspection: able to speak in complete sentences (at times but not for longer periods. ) and abnormal respiratory pattern Auscultation: clear to auscultation bilaterally Cardio Jugular venous pressure: no JVD Rate: regular rate Rhythm: regular rhythm GI Inspection: distended and obesity Palpation: soft and hernia (soft, reducible. ) Auscultation: normal bowel sounds General: other (medium yellow urine in urinal) Skin General skin exam: no rashes or lesions noted Neuro General: patient alert, patient awake, patient oriented x3 and moves all extremities Cognition: normal cognition Speech: speech normal Motor: muscle tone normal throughout Extrem General: normal to inspection and full ROM Psych Mental Status: mental status grossly normal Speech and Movement: speech and movement normal Attitude: cooperative Thought Process: normal Thought Content: normal Objective Objective Clinical Data: Abnormal lab results 11/01/19 11/01/19 Range/Units 06:00 06:00 RDW 16.0 H (11.8-14.1) % Absolute Monocytes 0.79 H (0.11-0.7) k/cumm BUN 33 H (7-18) mg/dL NT-Pro-B Natriuret Pep 4252 H (<300) pg/mL Vital Signs Temperature 36.6 C 11/01/19 07:39 Temperature Source Tympanic 11/01/19 07:39 Pulse 72 11/01/19 07:39 Pulse Rhythm Regular 11/01/19 08:45 Pulse 93 H 10/28/19 18:30 Respiratory Rate 17 11/01/19 07:39 Respiratory Effort Non-Labored 11/01/19 08:45 Respiratory Depth Normal 11/01/19 08:45 Respiratory Pattern Normal 11/01/19 08:45 Blood Pressure 110/71 11/01/19 07:39 Blood Pressure Mean 79 10/28/19 18:28 Blood Pressure Position Sitting 10/28/19 18:04 Pulse Oximetry 93 L 11/01/19 08:26 Oxygen Delivery Method Hi Flow System 11/01/19 08:26 Oxygen Flow Rate 10 11/01/19 10:11 Fraction of Inspired Oxygen (FIO2) 80 11/01/19 08:26 Pain Level 0 11/01/19 07:39 Comment 10/28/19 21:47 Intake & Output 10/31/19 10/31/19 11/01/19 11:59 23:59 11:59 Intake Total 240 / 770 530 / 770 240 / 240 Output Total 150 / 150 600 / 600 Balance 240 / 620 380 / 620 -360 / -360 Weight 88.7 kg Intake: Oral 240 / 770 530 / 770 240 / 240 Output: Urine 150 / 150 600 / 600 Other: Urine Color Straw Yellow Urine Appearance Clear Clear Clear Urine Odor Normal Normal Stool Size Moderate Moderate Stool Characteristics Formed Soft Formed Brown Voiding Methods Urinal Urinal Laboratory Results WBC 9.14 k/cumm (4.4-10.8) 11/01/19 06:00 RBC 4.65 m/cumm (4.50-6.00) 11/01/19 06:00 Hgb 14.5 g/dL (13.5-17.5) 11/01/19 06:00 Hct 43.9 % (40.0-50.0) 11/01/19 06:00 MCV 94.4 fL (80-95) 11/01/19 06:00 MCH 31.2 pg (27.0-33.0) 11/01/19 06:00 MCHC 33.0 g/dL (32.0-36.0) 11/01/19 06:00 RDW 16.0 % (11.8-14.1) H 11/01/19 06:00 Plt Count 150 x1000/uL (130-400) 11/01/19 06:00 MPV 10.9 fL (8.0-11.0) 11/01/19 06:00 Immature Gran % 0.1 % 11/01/19 06:00 Neutrophils % 70.7 11/01/19 06:00 Lymphocytes % 20.4 11/01/19 06:00 Monocytes % 8.6 11/01/19 06:00 Eosinophils % 0.1 11/01/19 06:00 Basophils % 0.1 11/01/19 06:00 Absolute Neutrophils 6.46 k/cumm (1.2-6.7) 11/01/19 06:00 Absolute Lymphocytes 1.86 k/cumm (1.2-3.4) 11/01/19 06:00 Absolute Monocytes 0.79 k/cumm (0.11-0.7) H 11/01/19 06:00 Absolute Eosinophils 0.01 k/cumm (0.0-0.7) 11/01/19 06:00 Absolute Basophils 0.01 k/cumm (0.0-0.2) 11/01/19 06:00 PT 10.3 sec (9.3-11.0) 10/28/19 17:30 INR 1.0 (0.9-1.1) 10/28/19 17:30 D-Dimer 779 ng/mlFEU (<500) H 10/28/19 17:50 ABG Sample Site Right radial 10/29/19 16:05 ABG pH 7.48 (7.35-7.45) H 10/29/19 16:05 ABG pCO2 32 mmHg (34-47) L 10/29/19 16:05 ABG pO2 56 mmHg (83-108) L 10/29/19 16:05 ABG HCO3 24 mmol/L (22-28) 10/29/19 16:05 ABG Total CO2 21 mmol/L (22-29) L 10/29/19 16:05 ABG O2 Saturation 90 % (94-98) L 10/29/19 16:05 ABG Base Excess 0.4 mmol/L (-3-3) 10/29/19 16:05 VBG pH 7.44 (7.35-7.45) 10/28/19 17:50 VBG pCO2 35 mm/Hg (34-47) 10/28/19 17:50 VBG pO2 53 mm/Hg (28-44) H 10/28/19 17:50 VBG HCO3 24 mmol/L (22-28) 10/28/19 17:50 VBG Total CO2 20 mmol/L (22-29) L 10/28/19 17:50 VBG O2 Saturation 88 % (70-80) H 10/28/19 17:50 VBG Base Excess -0.2 mmol/L (-3-3) 10/28/19 17:50 Oxygen Liter Flow 10 L 10/29/19 16:05 Sodium 139 mmol/L (136-145) 11/01/19 06:00 Potassium 3.7 mmol/L (3.5-5.1) 11/01/19 06:00 Chloride 106 mmol/L (98-107) 11/01/19 06:00 Carbon Dioxide 23.7 mmol/L (21.0-32.0) 11/01/19 06:00 Anion Gap 9.3 mmol/L (3-11) 11/01/19 06:00 BUN 33 mg/dL (7-18) H 11/01/19 06:00 Creatinine 1.08 mg/dL (0.70-1.30) 11/01/19 06:00 Estimated GFR/1.73 m2 >= 60.00 (mL/min/1.73m2) 11/01/19 06:00 Glucose 92 mg/dL (74-106) 11/01/19 06:00 Lactate 2.8 mmol/L (0.6-1.4) H* 10/28/19 17:50 Calcium 9.0 mg/dL (8.5-10.1) 11/01/19 06:00 Magnesium 2.2 mg/dL (1.8-2.4) 11/01/19 06:00 Total Bilirubin 0.8 mg/dL (0.2-1.0) 10/28/19 17:50 AST 27 U/L (15-37) 10/28/19 17:50 ALT 30 U/L (16-63) 10/28/19 17:50 Alkaline Phosphatase 73 U/L (46-116) 10/28/19 17:50 Troponin I < 0.05 ng/Ml (<0.06) 10/29/19 06:45 NT-Pro-B Natriuret Pep 4252 pg/mL (<300) H 11/01/19 06:00 Total Protein 7.6 g/dL (6.4-8.2) 10/28/19 17:50 Albumin 3.3 g/dL (3.4-5.0) L 10/28/19 17:50 Procalcitonin < 0.1 ng/mL 10/28/19 17:05 COVID-19 PCR Negative (Negative) 10/28/19 19:30 Nasopharyn COVID-19 PCR Not Applicable 10/28/19 19:30 Ref Test Perform Site [facility] lab 10/28/19 19:30
--- NOTE | 2019-11-01 14:06 | W.PALPGNOTE ---
Date of service: 11/01/19 Time of Service: 14:06 Assessment and Plan Assessment and plan (1) CHF (congestive heart failure): Status: Chronic (2) Pneumonia: Status: Acute (3) Generalized weakness: Status: Acute (4) DNI (do not intubate): Status: Acute (5) DNR (do not resuscitate): Status: Acute (6) Oxygen dependent: Status: Chronic (7) COPD (chronic obstructive pulmonary disease): Status: Acute (8) CAD (coronary artery disease): Status: Acute (9) Palliative care patient: Status: Acute Assessment and plan: Has been seen by Dr. Bañuelos in the past. Was on Hospice briefly, decided to get off hospice after having hallucinations on Morphine. He is requesting discharge home today. His oxygen demand is increased from baseline, he is currently on 15 lpm via high flow system. Simply changing positions to sit at the edge of bed caused severe respiratory distress with dyspnea and cyanosis. He states that he knows that he is going to . He wants to go home. He does not feel that he has a good quality of life being in the hospital. He is agreeable to hospice care as long as it is clear that he does not want morphine or any other narcotics. He has been started on ativan today. If he does well with the ativan, he can continue ativan for respiratory distress on hospice. The plan at this point is for him to be discharged home on hospice tomorrow. Subjective Subjective Interval history since last seen: Lola was seen again today as he has been telling the hospital staff that he want to go home, but the Hospitalist [employer], Rosalva Meadows is concerned that his oxygen demand it too high to safely send him home. Rosalva also feels that Mr. Edmond is at the end of his life and is questioning whether he would consider hospice again. At the time of his visit, Lola was laying in bed with his HOB elevated, he was wearing high flow oxygen at 15 lpm. His home oxygen is at 10 lpm continuously. He is clear that he wants to go home. He knows he is going to soon. He does not want to stay in the hospital. We discussed the option of hospice again. He was on hospice recently but took himself off after he had a reaction to Morphine where he had very unpleasant hallucinations and dreams r/t PTSD. He is concerned that if he goes back on hospice, he will be encouraged to take Morphine again. He is clear that he does not wan to take any narcotics. I explained that he never has to take morphine or any other medications that he does not want to take. I also made it clear to him that if he is on hospice, he will have nursing director of collections and archives 02/01 and that he will get more help, which would help his , Ilsa. Having nursing available 24 hours/day would help prevent him from returning to the ED. By the end of the conversation, he agreed to go back on hospice, ideally tomorrow, as long as it is clear that he DOES NOT WANT MORPHINE EVER AGAIN. Hospice was contacted. Respiratory therapy is working with hospice to ensure that he has what he needs to breathe comfortably at home, which may include nasal cannula, trilogy or a high flow system. Exam Narrative Exam Narrative: General: elderly man, appears stated age, laying in bed with high flow oxygen on, breathing comfortably at rest, speaking in complete sentences without respiratory distress. Alert and oriented. Pleasant and talkative. HEENT: normocephalic, atraumatic, pupils equal and round, mucous membranes moist. Neck: supple. Cardiovascular: HR regular, +click, nontachycardic. Respiratory: Respirations appear unlabored with high flow oxygen on at rest. However, just changing positions to sit at the edge of the bed was incredibly difficult and caused severe respiratory distress, including shortness of breath and cyanosis. He has expiratory wheezes on the left. GI: +BS x4 quadrants, abdomen round, soft, nontender on palpation. Extremities: fingertips with clubbing and cyanosis. No lower extremity edema, lacking hair on lower extremities. Pedal pulses faint bilaterally. Objective Objective Clinical Data: Abnormal lab results 11/01/19 11/01/19 Range/Units 06:00 06:00 RDW 16.0 H (11.8-14.1) % Absolute Monocytes 0.79 H (0.11-0.7) k/cumm BUN 33 H (7-18) mg/dL NT-Pro-B Natriuret Pep 4252 H (<300) pg/mL Vital Signs Temperature 36.6 C 11/01/19 07:39 Temperature Source Tympanic 11/01/19 07:39 Pulse 72 11/01/19 07:39 Pulse Rhythm Regular 11/01/19 08:45 Pulse 93 H 10/28/19 18:30 Respiratory Rate 17 11/01/19 07:39 Respiratory Effort Non-Labored 11/01/19 08:45 Respiratory Depth Normal 11/01/19 08:45 Respiratory Pattern Normal 11/01/19 08:45 Blood Pressure 110/71 11/01/19 07:39 Blood Pressure Mean 79 10/28/19 18:28 Blood Pressure Position Sitting 10/28/19 18:04 Pulse Oximetry 93 L 11/01/19 08:26 Oxygen Delivery Method Hi Flow System 11/01/19 08:26 Oxygen Flow Rate 10 11/01/19 10:11 Fraction of Inspired Oxygen (FIO2) 80 11/01/19 08:26 Pain Level 0 11/01/19 07:39 Comment 10/28/19 21:47 Intake & Output 10/31/19 11/01/19 11/01/19 23:59 11:59 23:59 Intake Total 530 / 770 240 / 480 240 / 480 Output Total 150 / 150 600 / 900 300 / 900 Balance 380 / 620 -360 / -420 -60 / -420 Weight 88.7 kg Intake: Oral 530 / 770 240 / 480 240 / 480 Output: Urine 150 / 150 600 / 900 300 / 900 Other: Urine Color Straw Yellow Yellow Urine Appearance Clear Clear Urine Odor Normal Normal Stool Size Moderate Stool Characteristics Soft Formed Brown Voiding Methods Urinal Urinal Urinal Laboratory Results WBC 9.14 k/cumm (4.4-10.8) 11/01/19 06:00 RBC 4.65 m/cumm (4.50-6.00) 11/01/19 06:00 Hgb 14.5 g/dL (13.5-17.5) 11/01/19 06:00 Hct 43.9 % (40.0-50.0) 11/01/19 06:00 MCV 94.4 fL (80-95) 11/01/19 06:00 MCH 31.2 pg (27.0-33.0) 11/01/19 06:00 MCHC 33.0 g/dL (32.0-36.0) 11/01/19 06:00 RDW 16.0 % (11.8-14.1) H 11/01/19 06:00 Plt Count 150 x1000/uL (130-400) 11/01/19 06:00 MPV 10.9 fL (8.0-11.0) 11/01/19 06:00 Immature Gran % 0.1 % 11/01/19 06:00 Neutrophils % 70.7 11/01/19 06:00 Lymphocytes % 20.4 11/01/19 06:00 Monocytes % 8.6 11/01/19 06:00 Eosinophils % 0.1 11/01/19 06:00 Basophils % 0.1 11/01/19 06:00 Absolute Neutrophils 6.46 k/cumm (1.2-6.7) 11/01/19 06:00 Absolute Lymphocytes 1.86 k/cumm (1.2-3.4) 11/01/19 06:00 Absolute Monocytes 0.79 k/cumm (0.11-0.7) H 11/01/19 06:00 Absolute Eosinophils 0.01 k/cumm (0.0-0.7) 11/01/19 06:00 Absolute Basophils 0.01 k/cumm (0.0-0.2) 11/01/19 06:00 PT 10.3 sec (9.3-11.0) 10/28/19 17:30 INR 1.0 (0.9-1.1) 10/28/19 17:30 D-Dimer 779 ng/mlFEU (<500) H 10/28/19 17:50 ABG Sample Site Right radial 10/29/19 16:05 ABG pH 7.48 (7.35-7.45) H 10/29/19 16:05 ABG pCO2 32 mmHg (34-47) L 10/29/19 16:05 ABG pO2 56 mmHg (83-108) L 10/29/19 16:05 ABG HCO3 24 mmol/L (22-28) 10/29/19 16:05 ABG Total CO2 21 mmol/L (22-29) L 10/29/19 16:05 ABG O2 Saturation 90 % (94-98) L 10/29/19 16:05 ABG Base Excess 0.4 mmol/L (-3-3) 10/29/19 16:05 VBG pH 7.44 (7.35-7.45) 10/28/19 17:50 VBG pCO2 35 mm/Hg (34-47) 10/28/19 17:50 VBG pO2 53 mm/Hg (28-44) H 10/28/19 17:50 VBG HCO3 24 mmol/L (22-28) 10/28/19 17:50 VBG Total CO2 20 mmol/L (22-29) L 10/28/19 17:50 VBG O2 Saturation 88 % (70-80) H 10/28/19 17:50 VBG Base Excess -0.2 mmol/L (-3-3) 10/28/19 17:50 Oxygen Liter Flow 10 L 10/29/19 16:05 Sodium 139 mmol/L (136-145) 11/01/19 06:00 Potassium 3.7 mmol/L (3.5-5.1) 11/01/19 06:00 Chloride 106 mmol/L (98-107) 11/01/19 06:00 Carbon Dioxide 23.7 mmol/L (21.0-32.0) 11/01/19 06:00 Anion Gap 9.3 mmol/L (3-11) 11/01/19 06:00 BUN 33 mg/dL (7-18) H 11/01/19 06:00 Creatinine 1.08 mg/dL (0.70-1.30) 11/01/19 06:00 Estimated GFR/1.73 m2 >= 60.00 (mL/min/1.73m2) 11/01/19 06:00 Glucose 92 mg/dL (74-106) 11/01/19 06:00 Lactate 2.8 mmol/L (0.6-1.4) H* 10/28/19 17:50 Calcium 9.0 mg/dL (8.5-10.1) 11/01/19 06:00 Magnesium 2.2 mg/dL (1.8-2.4) 11/01/19 06:00 Total Bilirubin 0.8 mg/dL (0.2-1.0) 10/28/19 17:50 AST 27 U/L (15-37) 10/28/19 17:50 ALT 30 U/L (16-63) 10/28/19 17:50 Alkaline Phosphatase 73 U/L (46-116) 10/28/19 17:50 Troponin I < 0.05 ng/Ml (<0.06) 10/29/19 06:45 NT-Pro-B Natriuret Pep 4252 pg/mL (<300) H 11/01/19 06:00 Total Protein 7.6 g/dL (6.4-8.2) 10/28/19 17:50 Albumin 3.3 g/dL (3.4-5.0) L 10/28/19 17:50 Procalcitonin < 0.1 ng/mL 10/28/19 17:05 COVID-19 PCR Negative (Negative) 10/28/19 19:30 Nasopharyn COVID-19 PCR Not Applicable 10/28/19 19:30 Ref Test Perform Site [facility] lab 10/28/19 19:30
--- NOTE | 2019-11-01 14:09 | PDOC.CMPRO ---
Care Management Progress Note S/O: Lola remains acute at this time, though per provider may discharge home over the weekend. Per RT, [facility] will be trying nasal pillow attachment with Trilogy Unit today as Lola did not like the mask yesterday. Palliative Consult Zahida Egan NP saw Lola again to review Lola's wishes. Lola plans to return home and connect with Hospice shortly thereafter. CM continues to follow. A: Lola is a 84 year old male admitted with pneumonia and CHF with a history of interstitial lung disease and chronic oxygen use at home, baseline 10 liters. P: Lola will discharge home when ready per MD. He will follow up with his PCP and Palliative Care as well as his plan of care as prescribed. Anticipate new VNA orders for RN/OT. He will resume home O2 through [facility], and return home with a new Trilogy unit as well. Anticipate he will have a Hospice Admission planned soon after discharge; Lola will transport home via private vehicle with his , Ilsa.
[2019-11-01] MEDS: Latanoprost 0.005% 2.5 ML BTL OP (19:53)
[2019-11-01] MEDS: Rosuvastatin 10 MG TAB 20 MG PO (19:53)
[2019-11-01] MEDS: LORazepam 2 MG/1 ML Oral Concentrate 0.5 MG PO (19:54)
[2019-11-01] MEDS: Enoxaparin 40 MG/0.4 ML SYR SC (21:18)
[2019-11-02] VITALS (9 sets, daily range): BP systolic 133–143; BP diastolic 67–89; PULSE 73–76; RESP 1–21; TEMP 31–36.4; O2SAT 87–91
[2019-11-02] MEDS: guaiFENesin 600 MG TABCR PO (07:54)
[2019-11-02] MEDS: Losartan 50 MG TAB PO (07:55)
[2019-11-02] MEDS: dilTIAZem CD 180 MG CAPCR PO (07:55)
[2019-11-02] MEDS: Potassium Chloride 20 MEQ TABCR PO (07:55)
[2019-11-02] MEDS: Aspirin E.C. 81 MG TABEC PO (07:55)
[2019-11-02] MEDS: Furosemide 40 MG TAB PO (07:55)
[2019-11-02] MEDS: Carvedilol 12.5 MG TAB PO (07:55)
[2019-11-02] MEDS: Allopurinol 300 MG TAB 150 MG PO (07:55)
[2019-11-02] MEDS: Clopidogrel 75 MG TAB PO (07:55)
[2019-11-02] MEDS: predniSONE 20 MG TAB 40 MG PO (07:55)
[2019-11-02] MEDS: LORazepam 2 MG/1 ML Oral Concentrate 0.5 MG PO ×2 (07:56→14:17)
[2019-11-02 08:01] LABS: Abs Immature Grans 0.02 k/cumm (0.0-0.09); Absolute Eosinophil Count 0.01 k/cumm (0.0-0.7); Absolute Lymphocyte Count 1.78 k/cumm (1.2-3.4); Absolute Monocyte Count 0.87 k/cumm (0.11-0.7); Absolute Neutrophil Count 4.89 k/cumm (1.2-6.7); Eosinophils % 0.1; HCT 45.3 % (40.0-50.0); HGB 14.6 g/dL (13.5-17.5); Immature Grans % 0.3 %; Lymphocytes % 23.5; Mean Corp. HGB Concentration 32.2 g/dL (32.0-36.0); Mean Corpuscular Hemoglobin 30.4 pg (27.0-33.0); Mean Corpuscular Volume 94.2 fL (80-95); Mean Platelet Volume 11.6 fL (8.0-11.0); Monocytes % 11.5; Neutrophils % 64.6; Platelet Count 145 x1000/uL (130-400); RBC 4.81 m/cumm (4.50-6.00); White Blood Cell Count 7.57 k/cumm (4.4-10.8)
[2019-11-02 08:11] LABS: BUN 31 mg/dL (7-18); CREATININE 1.09 mg/dL (0.70-1.30); Calcium 8.9 mg/dL (8.5-10.1); Chloride 107 mmol/L (98-107); Glucose 76 mg/dL (74-106); Potassium 3.6 mmol/L (3.5-5.1); Sodium 140 mmol/L (136-145)
[2019-11-02] MEDS: Budesonide/Formoterol 160/4.5 6 GM 60 PUFF INH IH (10:03)
[2019-11-02] MEDS: Tiotropium Bromide-Respimat 10 PUFF INH 2 PUFF IH (10:03)
--- NOTE | 2019-11-02 11:50 | PT.INTREAT ---
Date of service: 11/02/19 Time of Service: 09:30 PT Notes Visit Reasons: Pneumonia [facility] Date:11/02/2019 PRECAUTIONS: Fall. Standard. SUBJECTIVE: Patient states that he is doing okay for the most part. He states he is pretty much the same OBJECTIVE: General Observation: Patient lying supine in bed with head of bed to 30. He is on 10 L of supplemental oxygen that is sleeping but easily aroused Mental Status: Alert and oriented x4 Pain: Nothing severe this morning BED MOBILITY/TRANSFERS Supine-sit: Independent Sit-supine: Independent Sit-stand: Supervision using BUE for support with front wheeled walker Stand-sit: Supervision using BUE for support GAIT Assistive Device: Front wheel walker Weight bearing: Full weight bearing Assist: Supervision Distance: 260 feet with supervision. Patient is O2 saturation was monitored closely. He was placed on 15 L of supplemental O2 for his mobile unit. Patient was followed by this therapist and nursing. During his ambulation his O2 saturation reached a high of 84 and a trough of 72%. Patient required 4 rest breaks, each only lasting about 30 seconds Deviation: [place] increasing. For therapeutic exercise patient was in the seated position mainly for this. He completed the following exercises with corrective instruction Elbow flexion and extension x20 Scapular rows x 20 Hip flexion x 20 Heel lifts and toe lifts x 20 LAQ 2 x 20 Sit to stand x 3 ASSESSMENT: Patient patient appears to be holding his own at this point in time. There is still quite a bit of desaturation that occurs with any activity. However it appeared that during his ambulation intervals his O2 saturation was much more stable than during his respiratory but this could have accounted for his recovery time as well. Patient is also very conversive and talks during his therapeutic session constantly. PLAN: 1x/day, 7 days/week x 1 week. Continue with physical Therapy intervention for strengthening, bed mobility, transfers, gait, stairs, balance training, use of assistive device. TREATMENT CODE/TIME: 40529 x 15minutes, 91256 x 15 minutes beginning at 9:30.
--- NOTE | 2019-11-02 13:40 | RESPIRATORY ---
Addendum entered by Rosalva Russell 11/02/19 14:05: Primary Setting are as follow: AVAPS-AE Vt 450ml Rate 1, Max Press 20 PS min 5/max 15, EPAP min 5/max 10 on 10L O2 bled-in DME: [facility] and Nasal Pillows medium Original Note: Alexandra Bailey came to fit patient with Trilogy nasal pillow as was having issues with the medium facial mask previously given to him. In the process, she changed the secondary setting to the following: PC IPAP 8/EPAP 0, I-time 1:2, Rise-time 3 and placed the device on 8L O2 bled-in as SpO2 was good on this flow. Patient is to use these settings as primary one versus those previously set-up on his machine under the Primary settings. These settings are more similar to the [employer] HF System in which the patient like to use.
--- NOTE | 2019-11-02 14:29 | RESPIRATORY ---
Patient's baseline is 8-10L O2 all the time, DME is [facility]. With recent sickness and SOB, he's recently been placed on 10L.
--- NOTE | 2019-11-02 15:40 | PDOC.CMPRO ---
- If Service Date Differs Date of service: 11/02/19 Time of Service: 15:40 Care Management Progress Note S/O: Lola demands that he is able to go home today with or without hospice. He states that he wants to be with his in his own home and does not want to spend another minute in the hospital. There is some concern over the ability to keep him comfortable at home with medications and his current oxygen set up. RT, [facility] did set him up with a Trilogy which he has been comfortable with since the implementation of a different nasal pillow mask. Hospice will admit him [place], ativan and all other orders have been sent to hospice by . Patient would like to go home via private car, CM will need to request a lift assist. CM will request [facility] to complete a home visit this eveing to ensure the Trilogy is set up and working at home. A: Lola is a 84 year old male admitted with pneumonia and CHF with a history of interstitial lung disease and chronic oxygen use at home, baseline 10 liters. P: Lola will discharge home today on hospice services and with his Trilogy. CM coordinated with hospice services, and DME for services.
--- NOTE | 2019-11-02 16:04 | DSE_ITS ---
Date of service: 11/02/19 Time of Service: 16:04 DS: Diagnosis Discharge Diagnosis (1) Acute and chronic respiratory failure with hypoxia: Status: Acute (2) Acute exacerbation of chronic obstructive pulmonary disease (COPD): Status: Acute (3) Pneumonia: Status: Acute Asessment and Plan: LLL CAP, present on admission (4) Acute on chronic systolic CHF (congestive heart failure): Status: Acute (5) Cor pulmonale: Status: Acute (6) Pulmonary hypertension: Status: Acute (7) Interstitial lung disease: Status: Acute (8) Pulmonary fibrosis: Status: Acute (9) CAD (coronary artery disease): Status: Acute (10) COVID-19 ruled out by laboratory testing: Status: Acute (11) Central obesity: Status: Acute (12) Impaired ambulation: Status: Acute (13) Agent orange exposure: Status: Acute (14) Generalized weakness: Status: Acute (15) DNI (do not intubate): Status: Acute (16) DNR (do not resuscitate): Status: Acute (17) Pulmonary nodule: Status: Acute Discharge Plan Disposition Patient Disposition: HOME W/HOME HEALTH SERVICE Condition: Fair Discharge Details Chief Complaint: SOB Reason For Visit: PNEUMONIA Admit Date/Time: 10/28/19 20:33 Admit Provider: Adrian Crow Attending Provider: Adrian Crow Primary Care Provider: Rianna Padron ED Provider: Ilda Gomes [facility] Course Hospital Course: Mr Edmond is an 84 year old male with PMHx of severe chronic hypoxic respiratory failure, normally requiring 10 L of O2, due to ILD, pulmonary fibrosis, pulmonary hypertension, COPD, chronic systolic CHF with EF of 45 %, who was admitted to [facility] on 10/28/2019 with CAP. He was ruled out for COVID-19 with a nasopharyngeal swab. He was initiated on zosyn and levaquin, as well as diuretics. He was also given steroids. He completed his antibiotics and remains on oral steroids and diuretics at the time of discharge. He was evaluated and set up for a trilogy machine which, when used with a nasal pillows mask, is tremendously helpful in making him feel better. He was evaluated by palliative care (he was previously on hospice, but had come off of it in the past) to be considered for re-enrollment on home hospice. At this time, the patient verbalizes a strong desire to go home and be with his , and hospice is able to admit him at home tonight. My understanding is that hospice orders have already been placed. Mr Edmond is ready for discharge home on home hospice today. Care for patient as well as completion of discharge paperwork for Mr Edmond took 40 minutes on the day of discharge. Home Meds and New Rx's Prescriptions: Continued allopurinol 300 mg tablet 150 mg PO DAILY Qty: 45 RF: 6 latanoprost 0.005 % drops 1 drp OP QPM RF: 0 mupirocin 2 % ointment 1 applic TP BID Qty: 30 RF: 0 carvedilol [Coreg] 12.5 mg tablet 12.5 mg PO BID Qty: 180 RF: 3 clopidogrel [Plavix] 75 mg tablet 75 mg PO DAILY Qty: 90 RF: 3 rosuvastatin 20 mg tablet 20 mg PO DAILY Qty: 90 RF: 2 nitroglycerin 0.4 mg tablet, sublingual 0.4 mg SL Q5-15M PRN (Reason: chest pain) Qty: 30 RF: 0 fluticasone propionate 220 mcg/actuation HFA aerosol inhaler 1 puff IH Q12H RF: 0 furosemide 40 mg tablet 40 mg PO Q48H Qty: 45 RF: 3 losartan 50 mg tablet 50 mg PO DAILY Qty: 90 RF: 3 (DME) Comp-Air Elite Comp Neb System 1 EACH device 1 ea Miscellaneous Q6H PRN Qty: 1 RF: 0 aspirin 81 MG tablet,delayed release (DR/EC) 81 mg PO DAILY RF: 0 omega-3 fatty acids-fish oil 1 EACH capsule 1 ea PO DAILY RF: 0 vit E-wheat germ-aloe vera 120 GM ointment 120 gm Topical BID Qty: 1 RF: 0 prednisone 5 mg tablet 5 mg PO DAILY MDD 7mg Qty: 90 RF: 2 Oxygen EACH NS continuous Qty: 2 RF: 99 prednisone 1 mg tablet 1 mg PO DAILY MDD 7 Qty: 180 RF: 3 Stiolto Respimat 2.5-2.5 mcg/actuation mist 2 puff IH DAILY RF: 0 ursodiol 250 mg tablet 250 mg PO BID Qty: 180 RF: 3 diltiazem HCl 180 mg capsule,extended release 24hr 180 mg PO DAILY Qty: 90 RF: 3 cholecalciferol (vitamin D3) 10 mcg (400 unit) Capsule 10 mcg PO DAILY RF: 0 potassium chloride 20 mEq Tablet Extended Release 20 meq PO DAILY RF: 0 acetaminophen [Tylenol] 325 MG tablet 650 mg PO PRN PRNRF: 0 Discontinued Trelegy Ellipta 100-62.5-25 mcg blister with device 1 inh IH DAILY Qty: 28 RF: 1 Discharge Instructions Additional Instructions: Return to the hospital if your symptoms cannot be managed by hospice at home. Care Plan Goals: Discharge home with home hospice Referrals: Rianna Padron DO [Primary Care Provider] - Activity:: Activity as Tolerated Equipment/Supplies:: Trilogy machine Diet:: As Tolerated Discharge Orders Discharge Orders: Discharge Order (Routine); Ordered 11/02/19 Ordered By: Shanelle Rolon DS: Summary Status at Discharge Functional status at discharge: wheelchair bound Overall status at discharge: patient is back to baseline Mental Status: mental status grossly normal Speech and Movement: speech and movement normal Mood: congruent mood Affect: normal affect Exam Narrative Exam Narrative: General: Very pleasant elderly male, A&Ox3, appears very comfortable with nasal pillows on HEENT: EOMI, MMM Heart: RRR Lungs: Diminished anteriorly Abdomen: soft, nontender, nondistended Extremities: +1 BLE edema Psych Mental Status: mental status grossly normal Speech and Movement: speech and movement normal Mood: congruent mood Affect: normal affect DS: Data Vitals/I&O Vitals and I&O: Vital Signs Temperature 36.1 C L 11/02/19 15:20 Temperature Source Tympanic 11/02/19 15:20 Pulse 76 11/02/19 15:20 Pulse Rhythm Regular 11/02/19 07:55 Pulse 93 H 10/28/19 18:30 Respiratory Rate 21 11/02/19 15:20 Respiratory Effort Non-Labored 11/02/19 07:55 Respiratory Depth Normal 11/02/19 07:55 Respiratory Pattern Normal 11/02/19 07:55 Blood Pressure 142/72 H 11/02/19 15:20 Blood Pressure Mean 79 10/28/19 18:28 Blood Pressure Position Sitting 10/28/19 18:04 Pulse Oximetry 91 L 11/02/19 15:20 Oxygen Delivery Method Bi-pap 11/02/19 14:00 Oxygen Flow Rate 8 11/02/19 14:00 Fraction of Inspired Oxygen (FIO2) 56 11/02/19 09:51 Pain Level 0 11/02/19 15:20 Comment 11/02/19 14:00 Intake & Output 11/01/19 11/02/19 11/02/19 23:59 11:59 23:59 Intake Total 490 / 730 880 / 880 Output Total 850 / 1450 325 / 475 150 / 475 Balance -360 / -720 555 / 405 -150 / 405 Weight 87 kg Intake: IV Oral 480 / 720 880 / 880 Output: Urine 850 / 1450 325 / 475 150 / 475 Other: Urine Color Yellow Yellow Yellow Urine Appearance Clear Clear Clear Urine Odor Normal None Stool Size Moderate Stool Characteristics Formed Brown Voiding Methods Urinal Urinal Urinal Data Completed and Pending Completed studies during hospitalization [Text1]: CXR 10/28/2019: 1. Suspect left lower lobe infiltrate and pleural effusion. 2. Small 5 mm right pulmonary nodule. Clinically warranted a CT scan of the chest may be obtained for further evaluation. CXR 10/29/2019: Overall, there does not appear to be significant change in appearance of the chest x-ray since 10/28/2019. Echo 10/31/2019: Left Ventricle The left ventricle is normal size. Left ventricular systolic function is borderline. There is normal left ventricular wall thickness. Paradoxical septal motion consistent with right ventricular volume overload. LVEF is 45%. Right Ventricle Right ventricle is severely dilated. Right ventricle is moderately hypokinetic. The RVSP is 61.2 mmHg. Device lead is present in the right ventricle. Atria The left atrium size is normal. Right atrium is moderately dilated. The interatrial septum is intact with no evidence for an atrial septal defect. Aortic Valve The Aortic valve is sclerotic. Aortic valve is probably trileaflet. There is no aortic valvular stenosis. Mild aortic regurgitation. Mitral Valve There is mitral annular calcification. Mitral valve leaflets are thickened. No evidence of mitral valve stenosis. Trace mitral regurgitation. Tricuspid Valve The tricuspid valve is normal in structure. There is no tricuspid valve stenosis. Moderate to severe tricuspid regurgitation. Pulmonic Valve Pulmonic valve is not well visualized. There is no pulmonic valvular stenosis. Mild pulmonic regurgitation. Great Vessels The aortic root is normal in size. The ascending aorta is normal in size. Aortic arch is not well visualized. IVC is normal in size and collapses >50% with inspiration. Pericardium There is no pericardial effusion. There is no pleural effusion. Labs on day of discharge: Labs from last 24 hours 11/02/19 11/02/19 07:20 07:20 WBC 7.57 RBC 4.81 Hgb 14.6 Hct 45.3 MCV 94.2 MCH 30.4 MCHC 32.2 RDW 16.0 H Plt Count 145 MPV 11.6 H Immature Gran % 0.3 Neutrophils % 64.6 Lymphocytes % 23.5 Monocytes % 11.5 Eosinophils % 0.1 Basophils % 0.0 Absolute Neutrophils 4.89 Absolute Lymphocytes 1.78 Absolute Monocytes 0.87 H Absolute Eosinophils 0.01 Absolute Basophils 0.00 Sodium 140 Potassium 3.6 Chloride 107 Carbon Dioxide 24.0 Anion Gap 9.0 BUN 31 H Creatinine 1.09 Estimated GFR/1.73 m2 >= 60.00 Glucose 76 Calcium 8.9 Preliminary micro results at discharge 10/28/19 19:07 Blood Culture - Preliminary Blood NO GROWTH 96 HOURS 10/28/19 18:50 Blood Culture - Preliminary Blood NO GROWTH 96 HOURS [facility] Medical History Acute and chronic respiratory failure with hypoxia (Acute) Adverse drug effect (Chronic) hallucinations on morphine Agent orange exposure (Chronic) Black stool (Acute) probable digested blood from nasopharynx (Hx blood clots, epistaxis) CAD (coronary artery disease) Central obesity (Acute) Chronic dyspnea (Acute) Chronic sinusitis (Acute) COPD (chronic obstructive pulmonary disease) DNI (do not intubate) (Acute) DNR (do not resuscitate) (Acute) Encounter for hospice care discussion (Acute) Essential hypertension Generalized weakness (Acute) High cholesterol ILD (interstitial lung disease) Palliative care patient (Acute) Pulmonary hypertension (Chronic) Surgical History Carotid endarterectomy Cholecystectomy (10/24/17) 11/13/17 laproscopic cholesystectomy with common duct exploration Dr. Aristides Medina, 10/24/17 [facility] laparoscopy, cholydocholithiasis cholecystisis s/p ERCP with percutaneoul cholecystostomy tube placement Cholecystectomy (11/13/17) 11/13/17 laproscopic cholesystectomy with common duct exploration Dr. 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 Family History Mother , age 70 from pancreatitis Pancreatitis Father , age 59 from myocardial infarction Heart disease Brother , age 72 from complications of diabetes Diabetes Hypertension Hyperlipidemia Brother , age 60 of unknown cause No problems noted. Sister , in her 60s from diabetes Diabetes Sister , in her late 60s/early 70s from diabetes Diabetes Sister No problems noted. Sister , September 2018 Heart disease Son Chronic post-traumatic stress disorder (PTSD) after combat Social History Smoking/Tobacco Use Status: Former Tobacco Use Alcohol Intake: current Alcohol Intake frequency: a few times a month Drug use: Rarely Substance use type: marijuana Details: recently tried marijuana cookie to see if it would help with back pain; did not like side effects Caregiver/Support person: Yes ( Ilsa) Household members: spouse Housing: house Number of Children: 1 number of grandchildren: 2 Communication Needs: Hard of Hearing and Corrective Lenses Education Level: high school Details: dropped out but got his GED, has taken college courses Do you need help understanding health information?: Often 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, 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 Pets and animals: Yes What is your relationship status?: How often do you talk on the phone with friends or family?: once per week How often do you get together with friends or relatives?: once per week Panel score (0-1 are the most socially isolated patients): 1 What type of physical activity do you participate in: none and sedentary lifestyle Duration: < 15 minutes/day Padmini/Taoism: None Special padmini needs: No Agree to transfusion: Yes Seatbelt use: sometimes Helmet use: Yes Drive intox or ride w/intox shuttle van driver: No Working smoke detector in home: Yes Carbon monox detector in home: Yes Firearms in home: Yes Do you feel safe at home: Yes Do you feel safe in your relationship?: Yes Additional Social history: Ilsa worried about Collyn. He is needing more help. He is discouraged, breathless, exhausted. She sees his breathing is worse. Hates any mind-altering drugs; I need to be in control. Ilsa needs help caring for him. trying to honor his wishes.
--- NOTE | 2019-11-05 11:52 | INDS_ITS ---
Date of service: 11/05/19 PT Notes Visit Reasons: Pneumonia Inpatient Physical Therapy Discharge Summary Dates: 11/05/2019 Dates of Service: 11/01/2019 and 11/02/2019 This is a clinical summary of care provided on the duration of dates listed above. No charge was made in the completion of this documentation. Referring Doctor: Rosalva Black NP PT Orders: PT CONSULT: Limited ability Precautions: Fall. Standard. Activity as tolerated. On 10 L of oxygen per minute continuously via NC. Patient Profile/Admitting Diagnosis: Gerson is an 84-year-old male who presented to the ED on 10/28/2019 with chief complaints of generalized body malaise, shortness of breath, and cough which have increasingly worsened over the course of 2 weeks prior to ED presentation. Patient is diagnosed with acute on chronic respiratory failure, congestive heart failure EF of 40 to 45%, pneumonia, pulmonary hypertension, COPD exacerbation, and coronary artery disease. PMHX: Medical History Acute and chronic respiratory failure with hypoxia (Acute) Adverse drug effect (Chronic) hallucinations on morphine Agent orange exposure (Chronic) Black stool (Acute) probable digested blood from nasopharynx (Hx blood clots, epistaxis) CAD (coronary artery disease) Central obesity (Acute) Chronic dyspnea (Acute) Chronic sinusitis (Acute) COPD (chronic obstructive pulmonary disease) DNI (do not intubate) (Acute) DNR (do not resuscitate) (Acute) Encounter for hospice care discussion (Acute) Essential hypertension Generalized weakness (Acute) High cholesterol ILD (interstitial lung disease) Palliative care patient (Acute) Pulmonary hypertension (Chronic) Surgical History Carotid endarterectomy 11/13/17 laproscopic cholesystectomy with common duct exploration Dr. Aristides Medina, 10/24/17 [facility] laparoscopy, cholydocholithiasis cholecystisis s/p ERCP with percutaneoul cholecystostomy tube placement Cholecystectomy (11/13/17) 11/13/17 laproscopic cholesystectomy with common duct exploration Dr. 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 Social History/Home Situation: Patient lives with Ilsa in a private home with a ramp to enter. He is independent with operation of motorized wheelchair for all outdoor ambulation but has not used any assistive ambulatory device for indoors. His provides all the assistance he needs. At baseline, he requires oxygen supplementation on 10 L/min via NC at home. Equipment Owned/DME: Motorized wheelchair, tub bench, hand-held shower, ramp to enter, home oxygen Subjective: NT. See most recent FACILITY MAINTENANCE WORKER notes. Objective: General Observation: NT. See most recent FACILITY MAINTENANCE WORKER notes. Mental Status: NT. See most recent FACILITY MAINTENANCE WORKER notes. Pain: NT. See most recent FACILITY MAINTENANCE WORKER notes. Vital Signs: NT. See most recent FACILITY MAINTENANCE WORKER notes. ROM: Right Upper Extremity: Shoulder Flexion WFL. Shoulder abduction WFL. Elbow flexion WFL. Wrist flexion WFL. Opening and closing of hand WFL. Left Upper Extremity: Shoulder Flexion WFL. Shoulder abduction WFL. Elbow flexion WFL. Wrist flexion WFL. Opening and closing of hand WFL. Right Lower Extremity: Hip flexion WFL. Hip abduction WFL. Knee flexion WFL. Ankle dorsiflexion WFL. Ankle plantarflexion WFL. Left Lower Extremity: Hip flexion WFL. Hip abduction WFL. Knee flexion WFL. Ankle dorsiflexion WFL. Ankle plantarflexion WFL. Strength: Right Upper Extremity: Shoulder flexors 4/5. Shoulder abductors 4/5. Elbow flexors 5/5. Elbow extensors 5/5. Hydrogen Power Plant Manager strong. Left Upper Extremity: Shoulder flexors 4/5. Shoulder abductors 4/5. Elbow flexors 5/5. Elbow extensors 5/5. Hydrogen Power Plant Manager strong. Right Lower Extremity: Hip flexors 4/5. Hip abductors 5/5. Knee flexors 5/5. Knee extensors 4/5. Ankle dorsiflexors 5/5. Ankle plantarflexors 5/5. Left Lower Extremity:Hip flexors 4/5. Hip abductors 5/5. Knee flexors 5/5. Knee extensors 4/5. Ankle dorsiflexors 5/5. Ankle plantarflexors 5/5. Sensation: Intact as to pain and pressure on bilateral lower extremities. Bed Mobility/Transfers: Supine to sit independent Sit to supine independent Sit to stand supervision using BUE for support, agreed to using front wheeled walker, with [place] Dyspnea Scale of 2/10 (slight breathlessness) Stand to sit supervision using BUE for support, agreed to using front wheeled walker, with [place] Dyspnea Scale of 2/10 (slight breathlessness) Bed to chair supervision using BUE for support, agreed to using front wheeled walker, with [place] Dyspnea Scale of 2/10 (slight breathlessness) Chair to bed supervision using BUE for support, agreed to using front wheeled walker, with [place] Dyspnea Scale of 2/10 (slight breathlessness) Gait: Patient tolerated level surface ambulation of 260 feet with standby assist using front wheel walker with full weight bearing requiring 4 standing rests with oxygen desaturation to 72% and re-saturating back up to 84% with rest on 15 L of oxygen. Balance: Static Sitting: Normal Dynamic Sitting: Normal Static Standing: Good Dynamic Standing: Fair Assessment: Mayteyn demonstrates decreased activity tolerance due to CHF and COPD exacerbation compounded by above diagnoses. Patient is refusing to use any assistive ambulatory devices as patient stresses that he can manage without them despite explanation given regarding the amount of assistance that a front wheeled walker or a cane can contribute to conserve his energy. He also stressed that he does not need any home health PT and OT services as he and his are all set with their home set up at this time. He did voice that what they would need is a home health aide who can regularly come in to provide respite and relief for his . Patient continues to present with clinical signs and symptoms consistent with current/admitting diagnoses that have resulted to mobility limitations, gait instability, generalized weakness, and impairment of motor control as demonstrated by the following impairment level findings: 1. Impaired activity tolerance 2. Dyspnea on exertion 3. Generalized weakness to BUE and LE muscles Impairments are continuing to contribute to the following functional limitations: 1. Difficulty to maintain good saturation levels without an assistive device 2. Increase completion time for mobility ADL performance 3. Increased fall risk Goals: Goals X1 week 1. Supine-Sit independent MET 2. Sit-Supine independent MET 3. Sit-Stand independent NOT MET 4. Stand-Sit independent NOT MET 5. Bed-Chair independent NOT MET 6. Chair-Bed independent NOT MET 7. Independent gait on level surface with use of least restrictive device for at least 100 feet without report of pain nor dyspnea NOT MET 8. Independent with home exercise program NOT MET 9. Good static and dynamic standing balance/tolerance NOT MET DISCHARGE RECOMMENDATIONS: Patient will benefit from home health PT services in order to progress mobility level using least restrictive assistive ambulatory device, assess home safety, identify additional equipment needs, and establish a functional maintenance program that will increase ability of patient to remain at home. TREATMENT CODE/TIME: NC. Thank you very much for this referral. Ivy Calvert PT, DPT, CLT [facility] [place], [place]
== END 2019-11-02 17:09 | disposition home health service (06) | DRG 189 ==
LOC: ER 20:57 → MS 21:20
PROVIDERS: Nurse Practitioner Acute Care; Nurse Practitioner Family; Admitting Provider General Practice; Emergency Provider Student in an Organized Health Care Education/Training Program; PCP Student in an Organized Health Care Education/Training Program; Visit Provider Internal Medicine
DX: J96.21 Acute and chronic respiratory failure with hypoxia (principal); J18.1 Lobar pneumonia, unspecified organism; I50.23 Acute on chronic systolic (congestive) heart failure; Z99.81 Dependence on supplemental oxygen; I27.81 Cor pulmonale (chronic); I27.20 Pulmonary hypertension, unspecified; J84.10 Pulmonary fibrosis, unspecified; I25.10 Atherosclerotic heart disease of native coronary artery without angina pectoris; Z03.818 Encounter for observation for suspected exposure to other biological agents ruled out; E66.8 Other obesity; Z68.29 Body mass index [BMI] 29.0-29.9, adult; R26.2 Difficulty in walking, not elsewhere classified; Z77.29 Contact with and (suspected) exposure to other hazardous substances; R53.1 Weakness; Z66 Do not resuscitate; R91.1 Solitary pulmonary nodule; I11.0 Hypertensive heart disease with heart failure; Z51.5 Encounter for palliative care
CPT/HCPCS: 36415; 80048; 80053; 82805; 84145; 85027; 87040; 93005; 94618; 94640; 96365; 97110; 97162; 97530; 99222; 99233; 99239; 99255; 99285; J1650; U0003; 36600; 71045; 83605; 83735; 83880; 84484; 85025; 85379; 85610; 87070; 87205; 93010; 93306; 99221; J1940; J1956; J2543; J3490; J7512